=== PATIENT | female | born 1970 | race Caucasian/White ===

== ENCOUNTER 2016-06-06 12:43 | Emergency (ER) | payer BC ==
[2016-06-06 12:50] VITALS: BP 136/71
[2016-06-06] MEDS ORDERED: IPRATROPIUM/ALBUTEROL 0.5-2.5 MG/3 ML AMPUL NEB ONE ×2 (14:10)
--- NOTE | 2016-06-06 14:15 | ER Document Report ---
Doctor's Note Notes: 06/06/16 14:11 I have greeted and performed a rapid initial assessment of this patient. A comprehensive ED assessment and evaluation of the patient, analysis of test results and completion of the medical decision making process will be conducted by additional ED providers. 45-year-old female history of multiple PEs presents with complaints of shortness of breath here I like symptoms over the past 2 days. Patient notes she is on 0 to has been taking medication as prescribed. Admits to fevers and chills. Admits to nonproductive cough 06/06/16 14:15 Lungs: Faint inspiratory respiratory wheezing noted all throughout coughing no significant respiratory distress
[2016-06-06 14:40] LABS: ABSOLUTE BASOPHILS # (AUTO) 0.1 10^3/uL (0.0-0.2); ABSOLUTE EOSINOPHILS # (AUTO) 0.1 10^3/uL (0.0-0.6); ABSOLUTE LYMPHOCYTES (AUTO) 1.6 10^3/uL (0.5-4.7); ABSOLUTE MONOCYTES (AUTO) 0.7 10^3/uL (0.1-1.4); ABSOLUTE NEUT (AUTO) 4.8 10^3/uL (1.7-8.2); BASOPHILS % (AUTO) 1.3 % (0-2); EOSINOPHILS % (AUTO) 0.7 % (0-6); HEMATOCRIT 40.8 % (36.0-47.0); HEMOGLOBIN 13.6 g/dL (12.0-15.5); LYMPHOCYTES % (AUTO) 22.5 % (13-45); MEAN CORPUSCULAR HEMOGLOBIN 26.4 pg (27.0-33.4); MEAN CORPUSCULAR HGB CONC 33.3 g/dL (32.0-36.0); MEAN CORPUSCULAR VOLUME 79 fl (80-97); MONOCYTES % (AUTO) 9.6 % (3-13); RED BLOOD COUNT 5.15 10^6/uL (3.72-5.28); RED CELL DISTRIBUTION WIDTH 15.7 % (11.5-14.0); SEGMENTED NEUTROPHILS % (AUTO) 65.9 % (42-78); WHITE BLOOD COUNT 7.3 10^3/uL (4.0-10.5)
[2016-06-06 15:01] LABS: ALANINE AMINOTRANSFERASE 34 U/L (9-52); ALBUMIN 4.2 g/dL (3.5-5.0); ALKALINE PHOSPHATASE 77 U/L (38-126); ANION GAP 14 (5-19); ASPARTATE AMINO TRANSFERASE 30 U/L (14-36); BILIRUBIN,DIRECT 0.4 mg/dL (0.0-0.4); BILIRUBIN,TOTAL 0.5 mg/dL (0.2-1.3); BLOOD UREA NITROGEN 18 mg/dL (7-20); CALCIUM 9.5 mg/dL (8.4-10.2); CARBON DIOXIDE 24 mmol/L (22-30); CHLORIDE 103 mmol/L (98-107); CREATININE RESULT 0.85 mg/dL (0.52-1.25); GLUCOSE 107 mg/dL (75-110); POTASSIUM 4.2 mmol/L (3.6-5.0); SODIUM 141.4 mmol/L (137-145); TOTAL PROTEIN 7.9 g/dL (6.3-8.2)
--- NOTE | 2016-06-06 17:29 | ER Document Report ---
ED General - General Chief Complaint: Flu Symptoms Stated Complaint: PAIN ALL OVER Mode of Arrival: Ambulatory Information source: Patient Notes: This is a 45-year-old female who presents to the ER with a 2 day history of Lasix. She states she has had subjective fever and chills, along with a dry cough and body aches. Of note she has a history of PE in the past and she takes Xarelto. She states that she works at a [employer] and many people there have been sick with similar symptoms. She did not get a flu shot this year. She denies chest pain. TRAVEL OUTSIDE OF THE [place] IN LAST 30 DAYS: No - Related Data Allergies/Adverse Reactions: codeine [Codeine] Allergy (Verified 06/06/16 12:47) rash, headache Penicillins Allergy (Verified 06/06/16 12:47) itching rash hydromorphone HCl [From Dilaudid] Adverse Reaction (Verified 06/06/16 12:47) morphine [Morphine] Adverse Reaction (Verified 06/06/16 12:47) Past Medical History - General Information source: Patient - Social History Smoking Status: Former Smoker Frequency of alcohol use: None Drug Abuse: None Family History: Arthritis, CAD, DM, Hyperlipidemia, Hypertension, Malignancy, Other - Mother had a blood clot. denies: CVA Patient has suicidal ideation: No Patient has homicidal ideation: No - Past Medical History Cardiac Medical History: Reports: Hx DVT - Left, Hx Pulmonary Embolism Denies: Hx Hypertension Pulmonary Medical History: Reports: Hx Asthma Endocrine Medical History: Denies: Hx Diabetes Mellitus Type 1, Hx Diabetes Mellitus Type 2 Renal/ Medical History: Denies: Hx Peritoneal Dialysis Musculoskeltal Medical History: Reports Hx Arthritis - knees and back, Reports Hx Musculoskeletal Deformity, Reports Hx Musculoskeletal Trauma Psychiatric Medical History: Reports: Hx Depression Past Surgical History: Reports: Hx Section - x 2, Hx Cholecystectomy, Hx Gynecologic Surgery - Endometrial ablation, Hx Hysterectomy, Hx Orthopedic Surgery - ACL replacement, bilateral carpal tunnel,, Hx Tubal Ligation - Immunizations Hx Diphtheria, Pertussis, Tetanus Vaccination: Yes Hx Pneumococcal Vaccination: 09/27/13 Review of Systems - Review of Systems Notes: REVIEW OF SYSTEMS: CONSTITUTIONAL : As per history of present illness EENT: Denies eye, ear, throat, or mouth pain or symptoms. CARDIOVASCULAR: Denies chest pain. RESPIRATORY: As per history of present illness GASTROINTESTINAL: Denies abdominal pain. Denies nausea, vomiting. She has had diarrhea GENITOURINARY: Denies difficulty urinating, painful urination, burning, frequency, or blood in urine. MUSCULOSKELETAL: Denies neck or back pain or joint pain or swelling. SKIN: Denies rash or skin lesions. HEMATOLOGIC : Denies easy bruising or bleeding. LYMPHATIC: Denies swollen, enlarged glands. NEUROLOGICAL: Denies altered mental status or loss of consciousness. PSYCHIATRIC: Denies anxiety or stress or depression. ALL OTHER SYSTEMS REVIEWED AND NEGATIVE. Physical Exam - Vital signs Vitals: Temp Pulse Resp BP Pulse Ox 98.8 F 97 20 136/71 H 94 06/06/16 12:50 06/06/16 12:50 06/06/16 12:50 06/06/16 12:50 06/06/16 12:50 - Notes Notes: PHYSICAL EXAMINATION: GENERAL: Well-appearing, well-nourished and in no acute distress. Pleasant and conversant with no conversational dyspnea HEAD: Atraumatic, normocephalic. EYES: Pupils equal round and reactive to light, extraocular movements intact, sclera anicteric, conjunctiva are normal. ENT: nares patent, oropharynx clear without exudates. Moist mucous membranes. NECK: Normal range of motion, supple without lymphadenopathy LUNGS: Breath sounds clear to auscultation bilaterally and equal. No wheezes rales or rhonchi. HEART: Regular rate and rhythm without murmurs ABDOMEN: Soft, nontender, normoactive bowel sounds. No guarding, no rebound. No masses appreciated. EXTREMITIES: Normal range of motion, no pitting or edema. NEUROLOGICAL: Cranial nerves grossly intact. Normal speech. No gross focal motor or sensory deficits appreciated. PSYCH: Normal mood, normal affect. SKIN: Warm, Dry, normal turgor, no rashes or lesions noted. Course - Re-evaluation Re-evalutation: 06/06/16 17:25 Patient states she is feeling better after the nebulizer treatment. We'll treat for bronchitis. Her CT angiogram of the chest is reviewed and she has no evidence of PE or infiltrate. She will follow up with her primary care physician. Strict return precautions were discussed. - Vital Signs Vital signs: Temp Pulse Resp BP Pulse Ox 98.8 F 97 20 136/71 H 94 06/06/16 12:50 06/06/16 12:50 06/06/16 12:50 06/06/16 12:50 06/06/16 12:50 - Laboratory Result Diagrams: 06/06/16 14:29 06/06/16 14:29 Laboratory results interpreted by me: 06/06/16 14:29 MCV 79 L MCH 26.4 L RDW 15.7 H - Diagnostic Test Radiology reviewed: Reports reviewed - CT angiogram with no evidence of PE or infiltrate Discharge - Discharge Clinical Impression: Bronchitis, Flu-like symptoms Additional Instructions: BRONCHITIS: You have acute bronchitis. This disease is an infection or inflammation of the air passageways in your lungs. Symptoms usually include cough, low grade fever, shortness of breath, and wheezing. The cough usually persists for a couple of weeks. Most cases of bronchitis get better without antibiotics. We prescribe antibiotics when we believe bacteria are damaging your airways, or if there's high risk the bronchitis will worsen into pneumonia. Increase your fluid intake. A cool mist humidifier may make your lungs more comfortable. An expectorant (cough medicine that loosens phlegm) can help. If you smoke, STOP!!! Recovery from bronchitis can be somewhat slow, but you should see improvement within a day or two. Repeated episodes of bronchitis may result in lung damage -- for example, chronic bronchitis, recurrent pneumonias, or emphysema. Call the doctor if you develop increasing fever, shortness of breath, chest pain, bloody sputum, or otherwise worsen. If you have not improved at all after several days, contact the physician. BRONCHITIS WITH BRONCHOSPASM (WHEEZING): You have bronchitis with bronchospasm (wheezing). Sometimes people develop wheezing with a chest cold. This occurs either because of an underlying tendency toward asthma or because the virus itself irritates the bronchial tubes. This irritation causes cough, shortness of breath, and wheezing. Emergency treatment of bronchospasm may include adrenaline shots or bronchodilator aerosol. You may feel lightheaded and have a rapid pulse for an hour or two. Rest and get plenty of fluids. At home, we'll treat you with a bronchodilator inhaler. Corticosteroids may be required for some patients. Until you recover, avoid chemical fumes, dusts, pollens, and exercising in very cold or dry air. If you smoke, stop now! Most cases of bronchitis get better without antibiotics. We prescribe antibiotics when we believe bacteria are damaging your airways, or if there's high risk the bronchitis will worsen into pneumonia. Increase your fluid intake. A cool mist humidifier may make your lungs more comfortable. An expectorant (cough medicine that loosens phlegm) can help. Repeated episodes of bronchitis and bronchospasm may result in lung damage -- for example, chronic bronchitis, recurrent pneumonias, or emphysema. If you develop a fever, increased wheezing, chest pain, or severe shortness of breath, you should contact the doctor immediately. INHALED BRONCHODILATORS: You have received a treatment of and/or prescription for an inhaled bronchodilator -- a medication which stimulates the airways in the lung to dilate. This improves the flow of air in asthma, bronchitis, and emphysema. These medicines have some similarity to adrenaline, and can cause similar side effects: shakiness, racing heart, and a sense of nervousness. These side effects decrease with time. Contact your doctor if these side effects are severe. Do not over-use the medicine. Too-frequent use of the inhaler may make it ineffective. Call your doctor if the inhaler is not controlling your symptoms at the prescribed doses. STEROID MEDICATION: You have been given an injection of or oral medicine of the cortisone/ steroid class. This medication is used to control inflammation or allergy. Berry t is usually only given for a short period of time, until the acute process subsides. There are usually no side effects from short-term use of cortisone-like medications. Some persons feel an increased sense of well-being and are not sleepy at bedtime. Long-term use of cortisone medications is best avoided, unless required for a severe condition. If your condition does not remit, or relapses after the course of corticosteroid medication, you should consult your physician. ANTIBIOTIC THERAPY: You have been given an antibiotic prescription. It's important that you take all the medication, unless instructed otherwise by your physician. Failure to complete the entire course can result in relapse of your condition. Common side effects of antibiotics include nausea, intestinal cramping, or diarrhea. Women may develop vaginal yeast infections, and babies can get yeast (thrush) in the mouth following the use of antibiotics. Contact your physician if you develop significant side effects from this medication. Allergy to this antibiotic can result in hives, wheezing, faintness, or itching. If symptoms of allergy occur, stop the medication and call your doctor. D AZITHROMYCIN: Azithromycin (Zithromax) is a broad spectrum antibiotic in the same class as erythromycin. It can treat a variety of bacterial infections, but is most frequently used for respiratory infections. Azithromycin is extremely long-lasting. It accumulates in body tissues and continues to kill bacteria for many days. In order to improve absorption, Azithromycin should be taken at least one hour before or two hours after a meal. It does not have the same strong tendency to upset the stomach as erythromycin and is usually very well tolerated. Patients who have had a rash or other true allergic reactions to erythromycin should not take this medication. Call if you develop gastrointestinal distress, severe diarrhea, rash, hives, itching, or shortness of breath. USE OF ACETAMINOPHEN (Tylenol): Acetaminophen may be taken for pain relief or fever control. It's much safer than aspirin, offering a wider range of "safe" dosages. It is safe during . Some brand names are Tylenol, Panadol, Datril, Anacin 3, Tempra, and Liquiprin. Acetaminophen can be repeated every four hours. The following are maximum recommended dosages: >89 pounds or adults 650 mg to 900 mg Acetaminophen can be repeated every four hours. Maximum dose not to exceed 4000 mg a day. SMOKING: If you smoke, you should stop smoking. The tar and chemicals in cigarette smoke are harmful. Smoking has been shown to cause: emphysema chronic bronchitis lung cancer mouth and throat cancer stomach and pancreas cancer premature aging defects In addition, smoking increases ear and lung infections in children of smokers. FOLLOW-UP CARE: If you have been referred to a physician for follow-up care, call the physician s office for an appointment as you were instructed or within the next two days. If you experience worsening or a significant change in your symptoms, notify the physician immediately or return to the Emergency Department at any time for re-evaluation. Prescriptions: Albuterol Sulfate [Proair HFA Inhalation Aerosol 8.5 gm MDI] 2 puff IH Q4H PRN # 1 mdi PRN Reason: Azithromycin [Zithromax 250 mg Tablet] 250 mg PO ASDIR PRN #6 tablet PRN Reason: Prednisone [Deltasone 20 mg Tablet] 3 tab PO DAILY 4 Days Forms: Return to Work
== END 2016-06-06 18:00 | disposition home or self-care (01) ==
LOC: ER 12:43
DX: J40 Bronchitis, not specified as acute or chronic (principal); R68.83 Chills (without fever); R05 Cough; R52 Pain, unspecified; J45.909 Unspecified asthma, uncomplicated; Z86.711 Personal history of pulmonary embolism; Z79.01 Long term (current) use of anticoagulants; Z88.5 Allergy status to narcotic agent; Z88.0 Allergy status to penicillin; Z87.891 Personal history of nicotine dependence; Z86.718 Personal history of other venous thrombosis and embolism
CPT/HCPCS: 94640; 99284; 36415; 85025; 80053; 87804; 71275; J7620

== ENCOUNTER → 2016-09-03 | Outpatient (CLI) | payer OTHER ==
--- NOTE | 2016-09-03 11:31 | RADIOLOGY REPORT (SQ) ---
EXAM DESCRIPTION: MRI HEAD COMBO COMPLETED DATE/TIME: 09/03/2016 11:06 am REASON FOR STUDY: HEADACHE (R51) R51 HEADACHE COMPARISON: CT soft tissue neck 01/11/2009 TECHNIQUE: Multiplanar imaging includes noncontrasted T1, T2, FLAIR, diffusion with ADC map and post gadolinium contrast T1 sequences. Images stored on PACS. CONTRAST TYPE AND DOSE: 20 mL Multihance. RENAL FUNCTION: GFR > 60. LIMITATIONS: None. FINDINGS: ANATOMY: No anomalies. Normal vascular flow voids. Pituitary fossa normal. CSF SPACES: Normal in size and contour. No hemorrhage. CEREBRUM: Sulci and gyri normal in size and contour. Normal white matter signal on FLAIR imaging. No evidence of hemorrhage, mass, or extraaxial fluid collection. No abnormal enhancement post contrast. POSTERIOR FOSSA: No signal alteration. No hemorrhage. No edema, masses, or mass effect. Internal chuckie tory canals, cerebellopontine angles, mastoids normal. No enhancing lesions. No abnormal enhancement post contrast. DIFFUSION IMAGING: Negative for acute or subacute infarction. ORBITS: No masses. Globes normal. PARANASAL SINUSES: No fluid levels. Mucosa normal. OTHER: No other significant finding. IMPRESSION: NORMAL MRI OF THE BRAIN WITHOUT AND WITH INTRAVENOUS GADOLINIUM CONTRAST. TECHNICAL DOCUMENTATION: JOB ID: [id number] [employer]- All Rights Reserved
== END ==
LOC: RAD 09:28
PROVIDERS: ATTEND Specialist
DX: R51 Headache (principal)
CPT/HCPCS: 70553; A9577

== ENCOUNTER 2016-09-20 12:40 | Emergency (ER) | payer OTHER ==
[2016-09-20] MEDS ORDERED: OXYCODONE-ACETAMINOPHEN 5-325 MG TABLET PO ONE (13:07)
[2016-09-20] MEDS ORDERED: METOCLOPRAMIDE HCL 10 MG TABLET PO ONE (13:08)
--- NOTE | 2016-09-20 13:37 | RADIOLOGY REPORT (SQ) ---
EXAM DESCRIPTION: KNEE RIGHT 3 VIEWS COMPLETED DATE/TIME: 09/20/2016 1:25 pm REASON FOR STUDY: right knee pain, no fall COMPARISON: None. NUMBER OF VIEWS: Three views. TECHNIQUE: AP, lateral, and sunrise patella radiographic images acquired of the right knee. LIMITATIONS: None. FINDINGS: MINERALIZATION: Normal. BONES: No acute fracture or dislocation. No worrisome bone lesions. Mild joint space narrowing with o steophytes in all 3 compartments. JOINT: No effusion. No chondrocalcinosis. OTHER: No other significant finding. IMPRESSION: DEGENERATIVE OSTEOARTHRITIS. NO ACUTE FINDINGS. TECHNICAL DOCUMENTATION: JOB ID: [id number] [email or web address]- All Rights Reserved
--- NOTE | 2016-09-20 14:12 | ER Document Report ---
ED Extremity Problem, Lower - General Chief Complaint: Knee Pain Stated Complaint: RIGHT KNEE PAIN Time Seen by Provider: 09/20/16 12:50 TRAVEL OUTSIDE OF THE [place] IN LAST 30 DAYS: No - HPI Patient complains to provider of: Pain, Swelling. No: Injury Location: Knee - right Occurred: Last week Where: Work Onset/Duration: Gradual Quality of pain: Achy, Throbbing Context: Other - has been walking at work much more than she is used to and has underlying right knee OA Recent injury: No Associated symptoms: Painful ambulation. denies: Unable to bear weight Exacerbated by: Movement, Walking Relieved by: Elevation, Ice, Rest - Related Data Allergies/Adverse Reactions: codeine [Codeine] Allergy (Verified 09/20/16 12:45) rash, headache Penicillins Allergy (Verified 09/20/16 12:45) itching rash hydromorphone HCl [From Dilaudid] Adverse Reaction (Verified 09/20/16 12:45) morphine [Morphine] Adverse Reaction (Verified 09/20/16 12:45) Past Medical History - Social History Smoking Status: Never Smoker Chew tobacco use (# tins/day): No Frequency of alcohol use: None Family History: Arthritis, CAD, DM, Hyperlipidemia, Hypertension, Malignancy, Other - Past Medical History Cardiac Medical History: Reports: Hx DVT - Left, Hx Pulmonary Embolism Denies: Hx Hypertension Pulmonary Medical History: Reports: Hx Asthma Endocrine Medical History: Denies: Hx Diabetes Mellitus Type 1, Hx Diabetes Mellitus Type 2 Renal/ Medical History: Denies: Hx Peritoneal Dialysis Musculoskeltal Medical History: Reports Hx Arthritis - knees and back, Reports Hx Musculoskeletal Deformity, Reports Hx Musculoskeletal Trauma Psychiatric Medical History: Reports: Hx Depression Past Surgical History: Reports: Hx Section - x 2, Hx Cholecystectomy, Hx Gynecologic Surgery - Endometrial ablation, Hx Hysterectomy, Hx Orthopedic Surgery - ACL replacement, bilateral carpal tunnel,, Hx Tubal Ligation - Immunizations Hx Diphtheria, Pertussis, Tetanus Vaccination: Yes Hx Pneumococcal Vaccination: 09/27/13 Review of Systems - Review of Systems Constitutional: No symptoms reported Cardiovascular: No symptoms reported Respiratory: No symptoms reported Musculoskeletal: See HPI Neurological/Psychological: No symptoms reported -: Yes All other systems reviewed and negative Physical Exam - Vital signs Vitals: Temp Pulse Resp BP Pulse Ox 97.8 F 86 20 130/69 H 96 09/20/16 12:43 09/20/16 12:43 09/20/16 12:43 09/20/16 12:43 09/20/16 12:43 - General General appearance: Appears well, Alert In distress: None - Cardiovascular Pulses: Normal: Femoral, Dorsalis pedis Normal capillary refill: Yes - Extremities General upper extremity: Normal inspection, Nontender, Normal color, Normal ROM , Normal strength, Normal temperature General lower extremity: Normal inspection, Nontender, Normal color, Normal ROM , Normal strength, Normal temperature, Normal weight bearing. No: Mauricio's sign Knee: Pain with ROM. No: Tender, Deformity, Dislocation, Drawer's test instability, Joint effusion, Laxity with valgus stress, Laxity with varus stress , Unable to bear weight - Neurological Neuro grossly intact: Yes Cognition: Normal Orientation: AAOx4 [place] Coma Scale Eye Opening: Spontaneous [place] Coma Scale Verbal: Oriented [place] Coma Scale Motor: Obeys Commands Domingo Coma Scale Total: 15 Motor strength normal: LUE, RUE, LLE, RLE Sensory: Normal - Skin Skin Temperature: Warm Skin Moisture: Dry Skin Color: Normal Skin Turgor: Elastic Course - Re-evaluation Re-evalutation: 09/20/16 20:48 Patient is a 46-year-old female who presents with acute on chronic knee pain. Osteoarthritis noted on x-ray. Advised patient is able to bear weight and ambulate. Patient declined crutches. Patient offered steroid and Mobic for anti-inflammatory benefits. Patient educated on weightbearing as tolerated and follow-up with primary care. Patient is agreeable with plan. - Vital Signs Vital signs: Temp Pulse Resp BP Pulse Ox 98 F 80 16 132/72 H 98 09/20/16 14:15 09/20/16 14:15 09/20/16 14:15 09/20/16 14:15 09/20/16 14:15 - Diagnostic Test Radiology reviewed: Image reviewed, Reports reviewed Discharge - Discharge Clinical Impression: Osteoarthritis Qualifiers: Osteoarthritis location: knee Osteoarthritis type: primary Laterality: right Qualified Code(s): M17.11 - Unilateral primary osteoarthritis, right knee Condition: Good Disposition: HOME, SELF-CARE Instructions: Ice & Elevation ([facility]), Arthritis ([facility]) Prescriptions: Meloxicam [Mobic 7.5 Mg Tablet] 7.5 mg PO BID #14 tablet Methylprednisolone [Medrol Dosepack (4 mg/Tab) 21 Tab/Dosepak] 4 mg PO ASDIR PRN #21 tab.ds.pk PRN Reason: Referrals: [facility] [Primary Care Provider] - Follow up as needed ZAIRE PABLO MD [ACTIVE STAFF] - Follow up as needed
[2016-09-20 14:24] VITALS: BP 132/72
== END 2016-09-20 14:15 | disposition home or self-care (01) ==
LOC: ER 12:40
DX: M17.11 Unilateral primary osteoarthritis, right knee (principal); M25.561 Pain in right knee; M79.89 Other specified soft tissue disorders
CPT/HCPCS: 99283

== ENCOUNTER 2017-01-18 07:44 | Emergency (ER) | payer OTHER ==
[2017-01-18] MEDS ORDERED: KETOROLAC TROMETHAMINE 60 MG/2 ML SDV IM ONE (09:23)
[2017-01-18] MEDS ORDERED: DIAZEPAM INJ 10 MG/2 ML DISP.SYRIN IM ONE (09:23)
--- NOTE | 2017-01-18 09:28 | ER Document Report ---
ED General - General Chief Complaint: Shoulder Pain Stated Complaint: BACK PAIN Time Seen by Provider: 01/18/17 08:31 Mode of Arrival: Ambulatory Information source: Patient Notes: 46-year-old female presents with complaints of left scapular pain stiffness. Patient notes symptoms initially started yesterday was having some pain in the muscle and then today when she awoke it was hurting worse and she was unable to move her neck pain. Patient denies any shortness of breath, patient has had pulmonary emboli in the past and is on Xarelto for the rest of her life, she denies this feeling like the pulmonary emboli and is completely reproducible TRAVEL OUTSIDE OF THE [place] IN LAST 30 DAYS: No - HPI Onset: Yesterday Onset/Duration: Persistent, Worse Quality of pain: Achy Severity: Moderate Pain Level: 2 Associated symptoms: Body/muscle aches Exacerbated by: Movement Relieved by: Denies Similar symptoms previously: No Recently seen / treated by doctor: No - Related Data Allergies/Adverse Reactions: codeine [Codeine] Allergy (Verified 01/18/17 08:36) rash, headache Penicillins Allergy (Verified 01/18/17 08:36) itching rash hydromorphone HCl [From Dilaudid] Adverse Reaction (Verified 01/18/17 08:36) morphine [Morphine] Adverse Reaction (Verified 01/18/17 08:36) Past Medical History - Social History Smoking Status: Never Smoker Cigarette use (# per day): No Chew tobacco use (# tins/day): No Smoking Education Provided: No Frequency of alcohol use: None Drug Abuse: None Family History: Arthritis, CAD, DM, Hyperlipidemia, Hypertension, Malignancy, Other Patient has suicidal ideation: No Patient has homicidal ideation: No - Past Medical History Cardiac Medical History: Reports: Hx DVT - Left, Hx Pulmonary Embolism Denies: Hx Hypertension Pulmonary Medical History: Reports: Hx Asthma Endocrine Medical History: Denies: Hx Diabetes Mellitus Type 1, Hx Diabetes Mellitus Type 2 Renal/ Medical History: Denies: Hx Peritoneal Dialysis Musculoskeltal Medical History: Reports Hx Arthritis - knees and back, Reports Hx Musculoskeletal Deformity, Reports Hx Musculoskeletal Trauma Psychiatric Medical History: Reports: Hx Depression Past Surgical History: Reports: Hx Section - x 2, Hx Cholecystectomy, Hx Gynecologic Surgery - Endometrial ablation, Hx Hysterectomy, Hx Orthopedic Surgery - ACL replacement, bilateral carpal tunnel,, Hx Tubal Ligation - Immunizations Hx Diphtheria, Pertussis, Tetanus Vaccination: Yes Hx Pneumococcal Vaccination: 09/27/13 Review of Systems - Review of Systems Notes: REVIEW OF SYSTEMS: CONSTITUTIONAL : Denies fever, chills, or sweats. Denies recent illness. EENT: Admits to neck stiffness CARDIOVASCULAR: Denies chest pain. Denies palpitations or racing or irregular heart beat. Denies ankle edema. RESPIRATORY: Denies cough, cold, or chest congestion. Denies shortness of breath, difficulty breathing, or wheezing. GASTROINTESTINAL: Denies abdominal pain or distention. Denies nausea, vomiting , or diarrhea. Denies blood in vomitus, stools, or per rectum. Denies black, tarry stools. Denies constipation. GENITOURINARY: Denies difficulty urinating, painful urination, burning, frequency, blood in urine, or discharge. FEMALE GENITOURINARY: Denies vaginal bleeding, heavy or abnormal periods, irregular periods. Denies vaginal discharge or odor. MUSCULOSKELETAL: Admits of left scapular pain SKIN: Denies rash, lesions or sores. HEMATOLOGIC : Denies easy bruising or bleeding. LYMPHATIC: Denies swollen, enlarged glands. NEUROLOGICAL: Denies confusion or altered mental status. Denies passing out or loss of consciousness. Denies dizziness or lightheadedness. Denies headache. Denies weakness or paralysis or loss of use of either side. Denies problems with gait or speech. Denies sensory loss, numbness, or tingling. Denies seizures. PSYCHIATRIC: Denies anxiety or stress. Denies depression, suicidal ideation, or homicidal ideation. ALL OTHER SYSTEMS REVIEWED AND NEGATIVE. PHYSICAL EXAMINATION: GENERAL: Well-appearing, well-nourished and in no acute distress. HEAD: Atraumatic, normocephalic. EYES: Pupils equal round and reactive to light, extraocular movements intact, conjunctiva are normal. ENT: Nares patent, oropharynx clear without exudates. Moist mucous membranes. NECK: Normal range of motion, supple without lymphadenopathy LUNGS: Breath sounds clear to auscultation bilaterally and equal. No wheezes rales or rhonchi. HEART: Regular rate and rhythm without murmurs ABDOMEN: Soft, nontender, nondistended abdomen. No guarding, no rebound. No masses appreciated. Female : deferred Musculoskeletal: Pinpoint tenderness of the left inferior scapula NEUROLOGICAL: Cranial nerves grossly intact. Normal speech, normal gait. Normal sensory, motor exams PSYCH: Normal mood, normal affect. SKIN: Warm, Dry, normal turgor, no rashes or lesions noted. Dictation was performed using [employer] voice recognition software Physical Exam - Vital signs Vitals: Temp Pulse Resp BP Pulse Ox 98.2 F 92 20 146/86 H 96 01/18/17 07:49 01/18/17 07:49 01/18/17 07:49 01/18/17 07:49 01/18/17 07:49 Course - Re-evaluation Re-evalutation: 01/18/17 09:26 Patient will be given Valium and Toradol and is otherwise well-appearing no distress she will be discharged home with the same. After performing a Medical Screening Examination, I estimate there is LOW risk for CENTRAL CORD SYNDROME, EPIDURAL MASS LESION, SEVERE SPINAL STENOSIS, ARTERIAL DISSECTION, MENINGITIS, or ACUTE CORONARY SYNDROME, thus I consider the discharge disposition reasonable. I have reevaluated this patient multiple times and no significant life threatening changes are noted. The patient and I have discussed the diagnosis and risks, and we agree with discharging home to follow-up on an outpatient basis with the understanding that symptoms and presentations can change. We also discussed returning to the Emergency Department immediately if new or worsening symptoms occur. We have discussed the symptoms which are most concerning (e.g., saddle anesthesia, urinary or bowel incontinence or retention, changing or worsening pain) that necessitate immediate return. - Vital Signs Vital signs: Temp Pulse Resp BP Pulse Ox 98.2 F 92 20 146/86 H 96 01/18/17 07:49 01/18/17 07:49 01/18/17 07:49 01/18/17 07:49 01/18/17 07:49 Discharge - Discharge Clinical Impression: Neck stiffness Muscle strain of left scapular region Qualifiers: Encounter type: initial encounter Qualified Code(s): S46.912A - Strain of unspecified muscle, fascia and tendon at shoulder and upper arm level, left arm , initial encounter Condition: Stable Disposition: HOME, SELF-CARE Additional Instructions: Follow up with your physician tomorrow for further care or return to the ED IMMEDIATELY if symptoms worsen or new concerns occur. If you cannot afford to follow up with your primary care physician a list of low cost clinics have been provided at the end of your discharge papers as well. Prescriptions: Diazepam [Valium 5 mg Tablet] 5 mg PO QIDP PRN #15 tablet PRN Reason: Forms: Return to School
[2017-01-18 09:39] VITALS: BP 135/90
== END 2017-01-18 10:01 | disposition home or self-care (01) ==
LOC: ER 07:44
DX: S46.912A Strain of unspecified muscle, fascia and tendon at shoulder and upper arm level, left arm, initial encounter (principal); M43.6 Torticollis; X58.XXXA Exposure to other specified factors, initial encounter; Z79.02 Long term (current) use of antithrombotics/antiplatelets; Z88.6 Allergy status to analgesic agent; Z88.0 Allergy status to penicillin; Z86.718 Personal history of other venous thrombosis and embolism; Z86.711 Personal history of pulmonary embolism; Z90.49 Acquired absence of other specified parts of digestive tract; Z90.710 Acquired absence of both cervix and uterus
CPT/HCPCS: 99283; 96372; J3360; J1885

== ENCOUNTER → 2017-02-02 | Outpatient (CLI) | payer OTHER ==
[2017-02-02 18:55] LABS: ALANINE AMINOTRANSFERASE 30 U/L (9-52); ALBUMIN 3.9 g/dL (3.5-5.0); ALKALINE PHOSPHATASE 86 U/L (38-126); ANION GAP 14 (5-19); ASPARTATE AMINO TRANSFERASE 20 U/L (14-36); BILIRUBIN,DIRECT 0.3 mg/dL (0.0-0.4); BILIRUBIN,TOTAL 0.3 mg/dL (0.2-1.3); BLOOD UREA NITROGEN 13 mg/dL (7-20); CALCIUM 9.4 mg/dL (8.4-10.2); CARBON DIOXIDE 27 mmol/L (22-30); CHLORIDE 101 mmol/L (98-107); GLUCOSE 98 mg/dL (75-110); SODIUM 142.1 mmol/L (137-145); TOTAL PROTEIN 6.6 g/dL (6.3-8.2)
== END ==
LOC: OD 16:34
PROVIDERS: ATTEND Internal Medicine
DX: I26.99 Other pulmonary embolism without acute cor pulmonale (principal)
CPT/HCPCS: 36415; 80053

== ENCOUNTER 2017-03-13 11:22 | Emergency (ER) | payer OTHER ==
[2017-03-13 11:30] VITALS: BP 148/85
[2017-03-13] MEDS ORDERED: PREDNISONE 20 MG TABLET PO ONE (11:46)
[2017-03-13] MEDS ORDERED: RACEPINEPHRINE HCL 2.25% NEB 0.5 ML AMPUL NEB ONE (11:46)
[2017-03-13] MEDS ORDERED: BENZONATATE 100 MG CAPSULE PO ONE (11:47)
--- NOTE | 2017-03-13 11:52 | ER Document Report ---
ED Flu Like - General Chief Complaint: Sore Throat Stated Complaint: COUGH Time Seen by Provider: 03/13/17 11:37 Mode of Arrival: Ambulatory Information source: Patient, [facility] Records Notes: This 46-year-old female patient comes emergency room complaining of 3 day history of flulike symptoms with hoarse voice, throat pain, pain swelling lymph nodes. Nonproductive cough. Fever chills and sweats. She did not get a flu shot this year. 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 TRAVEL OUTSIDE OF THE [place] IN LAST 30 DAYS: No - Related Data Allergies/Adverse Reactions: codeine [Codeine] Allergy (Verified 03/13/17 11:24) rash, headache Penicillins Allergy (Verified 03/13/17 11:24) itching rash hydromorphone HCl [From Dilaudid] Adverse Reaction (Verified 03/13/17 11:24) morphine [Morphine] Adverse Reaction (Verified 03/13/17 11:24) Past Medical History - General Information source: Patient, [facility] Records - Social History Smoking Status: Former Smoker Cigarette use (# per day): No - Quit when she developed DVT/PE Chew tobacco use (# tins/day): No Smoking Education Provided: No Frequency of alcohol use: Rare Drug Abuse: None 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 Lives with: Friend Family History: Arthritis, CAD, DM, Hyperlipidemia, Hypertension, Malignancy, Other Patient has suicidal ideation: No Patient has homicidal ideation: No - Past Medical History Cardiac Medical History: Reports: Hx DVT - LLE, Hx Pulmonary Embolism Pulmonary Medical History: Reports: Hx Asthma EENT Medical History: Reports: None Neurological Medical History: Reports: None Endocrine Medical History: Reports: None Renal/ Medical History: Reports: None GI Medical History: Reports: None Musculoskeltal Medical History: Reports Hx Arthritis - knees and back, Reports Hx Musculoskeletal Deformity, Reports Hx Musculoskeletal Trauma Skin Medical History: Reports None Psychiatric Medical History: Reports: Hx Depression Past Surgical History: Reports: Hx Section - x 2, Hx Cholecystectomy, Hx Gynecologic Surgery - Endometrial ablation, Hx Hysterectomy, Hx Orthopedic Surgery - Left ACL cadaver graft, bilateral carpal tunnel,, Hx Tubal Ligation - Immunizations Hx Diphtheria, Pertussis, Tetanus Vaccination: Yes Hx Pneumococcal Vaccination: 09/27/13 Review of Systems - Review of Systems Constitutional: Chills, Fever EENT: Nose congestion, Nose discharge, Throat pain Cardiovascular: No symptoms reported Respiratory: Cough, Wheezing, Other - Laryngitis. denies: Sputum Gastrointestinal: No symptoms reported Genitourinary: No symptoms reported Female Genitourinary: Last menstrual period - Post hysterectomy Musculoskeletal: No symptoms reported Skin: No symptoms reported Hematologic/Lymphatic: No symptoms reported Neurological/Psychological: No symptoms reported Physical Exam - Vital signs Vitals: Temp Pulse Resp BP Pulse Ox 98.7 F 102 H 16 148/85 H 102 H 03/13/17 11:29 03/13/17 11:29 03/13/17 11:29 03/13/17 11:29 03/13/17 11:29 Interpretation: Normal - General General appearance: Appears well, Alert In distress: None - HEENT Head: Normocephalic, Atraumatic Eyes: Normal Pupils: PERRL Tympanic membrane: Normal Nasal: Other - Some nasal congestion Pharynx: Erythema - Looks viral. No: Exudate, Uvular edema Neck: Anterior cervical chain - Respiratory Respiratory status: No respiratory distress Breath sounds: Nonproductive cough, Wheezing - Faint wheezes with forced cough. , Other - Laryngitis/hoarseness of voice when speaking - Cardiovascular Rhythm: Regular Heart sounds: Normal auscultation Murmur: No - Abdominal Inspection: Obese Tenderness: Nontender - Back Back: Normal - Extremities General upper extremity: Normal inspection General lower extremity: Normal inspection - Neurological Neuro grossly intact: Yes - Psychological Associated symptoms: Normal affect, Normal mood - Skin Skin Temperature: Warm Skin Moisture: Dry Skin Color: Normal Course - Re-evaluation Re-evalutation: 03/13/17 13:23 Influenza test was negative - Vital Signs Vital signs: Temp Pulse Resp BP Pulse Ox 98.7 F 102 H 16 148/85 H 102 H 03/13/17 11:29 03/13/17 11:29 03/13/17 11:35 03/13/17 11:29 03/13/17 11:29 Discharge - Discharge Clinical Impression: Viral URI with cough, Laryngitis Condition: Stable Disposition: HOME, SELF-CARE Additional Instructions: Upper Respiratory Illness: You have a viral infection of the respiratory passages -- a "cold." This common infection causes nasal congestion, drainage, and often sore throat and cough. It is caused by a virus and is highly contagious. The disease usually lasts a week or more, though the worst symptoms are usually over in 3 or 4 days. There is no "cure" for the viral infection -- it must run its course. If there is a complication, such as bacterial infection in the nose, sinuses, middle ear, or bronchial tubes, antibiotics may be required, but antibiotics won 't affect the virus. If you smoke, you should STOP!! Drink plenty of fluids. A humidifier may help. An expectorant medication or decongestant may make you more comfortable. Use acetaminophen or ibuprofen for fever or aches. See the doctor if fever persists over two or three days, if there is any significant worsening of your symptoms, or if you simply fail to improve as expected. Laryngitis: You have laryngitis. This is an inflammation of the vocal cords which leads to inability to speak normally. Any irritation to the airway can cause laryngitis. Causes include virus infection, smoke inhalation, allergy, or even trauma due to excessive talking or shouting. Rest your voice. Any vibration of the vocal cords increases and prolongs the swelling. Humidity is helpful, especially cool mist. Avoid dust, chemical fumes, and smoke. Avoid decongestants and antihistamines -- these will make you worse. You can expect to recover completely in a few days. See the physician if new symptoms develop, such as high fever, productive cough, shortness of breath, or if you do not improve within a few days. //////////////////////////////////////////////////////////////////////////////// //////////////////////////////////////////////////////////////////////////////// ////////////////// Start the prednisone as prescribed tomorrow. Use the inhaler is dispensed 2 puffs every 4 hours as needed for wheezing. Drink plenty of fluids throughout the day in the evening. Take the Crosby as prescribed to help suppress your cough. You may also use Robitussin-DM. Rest your voice is much as possible. Not talking and not coughing is the best way to help your laryngitis cleared up sooner. Follow-up with a local medical doctor if not improving. RETURN TO THE EMERGENCY ROOM IF ANY NEW OR WORSENING SYMPTOMS. Prescriptions: Hydrocodone/Acetaminophen [Crosby 5-325 mg Tablet] 1 tab PO ASDIR PRN #15 tablet PRN Reason: Prednisone [Deltasone 10 mg Tablet] 10 mg PO ASDIR PRN #21 tablet PRN Reason: Forms: Return to Work
[2017-03-13] MEDS ORDERED: HYDROCODONE/ACETAMINOPHEN 5-325 MG TABLET PO ONE (11:55)
[2017-03-13 12:38] LABS: A TYPE INFLUENZA AG NEGATIVE (NEGATIVE); B INFLUENZA AG NEGATIVE (NEGATIVE)
[2017-03-13] MEDS ORDERED: ALBUTEROL SULFATE HFA (90 MCG/PUFF) 8 GM MDI (1 MDI/ER DISP) IH ONE (13:27)
== END 2017-03-13 13:35 | disposition home or self-care (01) ==
LOC: ER 11:22
DX: J06.9 Acute upper respiratory infection, unspecified (principal); J04.0 Acute laryngitis; J02.9 Acute pharyngitis, unspecified; R05 Cough; R50.9 Fever, unspecified; Z87.891 Personal history of nicotine dependence
CPT/HCPCS: 94640; 99283; 87804; J7512; J3490 ×2

== ENCOUNTER 2017-04-13 19:41 | Emergency (ER) | payer OTHER ==
[2017-04-13] MEDS ORDERED: ONDANSETRON HCL INJ/PF 4 MG/2 ML SDV IV ONE (20:13)
[2017-04-13] MEDS ORDERED: NORMAL SALINE 1000 ML 1,000 ML IV ONE (20:13)
--- NOTE | 2017-04-13 20:14 | ER Document Report ---
ED Medical Screen (RME) - General Chief Complaint: Nausea/Vomiting/Diarrhea Stated Complaint: FLU LIKE SYMPTOMS Time Seen by Provider: 04/13/17 20:12 Mode of Arrival: Ambulatory Information source: Patient TRAVEL OUTSIDE OF THE [place] IN LAST 30 DAYS: No - HPI Patient complains to provider of: flu symptoms Onset: Other - pt with 2 day h/o N/V/D with generalized arthralgias and arthralgias - Related Data Allergies/Adverse Reactions: codeine [Codeine] Allergy (Verified 03/13/17 11:24) rash, headache Penicillins Allergy (Verified 03/13/17 11:24) itching rash hydromorphone HCl [From Dilaudid] Adverse Reaction (Verified 03/13/17 11:24) morphine [Morphine] Adverse Reaction (Verified 03/13/17 11:24) Past Medical History - Social History Chew tobacco use (# tins/day): No Frequency of alcohol use: None Drug Abuse: None - Past Medical History Cardiac Medical History: Reports: Hx DVT - LLE, Hx Pulmonary Embolism Pulmonary Medical History: Reports: Hx Asthma Renal/ Medical History: Denies: Hx Peritoneal Dialysis Musculoskeltal Medical History: Reports Hx Arthritis - knees and back, Reports Hx Musculoskeletal Deformity, Reports Hx Musculoskeletal Trauma Psychiatric Medical History: Reports: Hx Depression Past Surgical History: Reports: Hx Section - x 2, Hx Cholecystectomy, Hx Gynecologic Surgery - Endometrial ablation, Hx Hysterectomy, Hx Orthopedic Surgery - Left ACL cadaver graft, bilateral carpal tunnel,, Hx Tubal Ligation - Immunizations Hx Diphtheria, Pertussis, Tetanus Vaccination: Yes Physical Exam - Vital signs Vitals: Temp Pulse Resp BP Pulse Ox 99.1 F 102 H 20 167/84 H 98 04/13/17 19:54 04/13/17 19:54 04/13/17 19:54 04/13/17 19:54 04/13/17 19:54 Course - Vital Signs Vital signs: Temp Pulse Resp BP Pulse Ox 99.1 F 102 H 20 167/84 H 98 04/13/17 19:54 04/13/17 19:54 04/13/17 19:54 04/13/17 19:54 04/13/17 19:54
[2017-04-13 20:58] LABS: ABSOLUTE BASOPHILS # (AUTO) 0.1 10^3/uL (0.0-0.2); ABSOLUTE EOSINOPHILS # (AUTO) 0.1 10^3/uL (0.0-0.6); ABSOLUTE LYMPHOCYTES (AUTO) 1.6 10^3/uL (0.5-4.7); ABSOLUTE MONOCYTES (AUTO) 0.5 10^3/uL (0.1-1.4); ABSOLUTE NEUT (AUTO) 9.2 10^3/uL (1.7-8.2); BASOPHILS % (AUTO) 0.9 % (0-2); EOSINOPHILS % (AUTO) 0.5 % (0-6); HEMATOCRIT 40.8 % (36.0-47.0); HEMOGLOBIN 13.7 g/dL (12.0-15.5); LYMPHOCYTES % (AUTO) 13.7 % (13-45); MEAN CORPUSCULAR HEMOGLOBIN 26.8 pg (27.0-33.4); MEAN CORPUSCULAR HGB CONC 33.7 g/dL (32.0-36.0); MEAN CORPUSCULAR VOLUME 80 fl (80-97); MONOCYTES % (AUTO) 4.8 % (3-13); PLATELET COUNT 454 10^3/uL (150-450); RED BLOOD COUNT 5.12 10^6/uL (3.72-5.28); RED CELL DISTRIBUTION WIDTH 15.9 % (11.5-14.0); SEGMENTED NEUTROPHILS % (AUTO) 80.1 % (42-78); TOTAL CELLS COUNTED % (AUTO) 100 %; WHITE BLOOD COUNT 11.4 10^3/uL (4.0-10.5)
[2017-04-13 21:11] LABS: ALANINE AMINOTRANSFERASE 31 U/L (9-52); ALBUMIN 4.3 g/dL (3.5-5.0); ALKALINE PHOSPHATASE 75 U/L (38-126); ANION GAP 11 (5-19); ASPARTATE AMINO TRANSFERASE 29 U/L (14-36); BILIRUBIN,DIRECT 0.4 mg/dL (0.0-0.4); BILIRUBIN,TOTAL 0.5 mg/dL (0.2-1.3); BLOOD UREA NITROGEN 12 mg/dL (7-20); CALCIUM 9.6 mg/dL (8.4-10.2); CARBON DIOXIDE 26 mmol/L (22-30); CHLORIDE 100 mmol/L (98-107); GLUCOSE 108 mg/dL (75-110); POTASSIUM 3.6 mmol/L (3.6-5.0); SODIUM 136.8 mmol/L (137-145); TOTAL PROTEIN 7.8 g/dL (6.3-8.2)
[2017-04-13 21:52] LABS: A TYPE INFLUENZA AG NEGATIVE (NEGATIVE); B INFLUENZA AG NEGATIVE (NEGATIVE)
[2017-04-13] MEDS ORDERED: DICYCLOMINE HCL INJ 20 MG/2 ML AMPULE IM ONE (22:10)
[2017-04-13] MEDS ORDERED: METOCLOPRAMIDE HCL INJ/PF 10 MG/2 ML SDV IV ONE (22:11)
[2017-04-13] MEDS ORDERED: NORMAL SALINE 500 ML IV ONE (22:11)
--- NOTE | 2017-04-13 22:49 | ER Document Report ---
ED General - General Chief Complaint: Nausea/Vomiting/Diarrhea Stated Complaint: FLU LIKE SYMPTOMS Time Seen by Provider: 04/13/17 20:12 Mode of Arrival: Ambulatory Notes: Patient is a 46-year-old female presents with complaint of vomiting and diarrhea. Patient says she first started having sinus congestion and runny nose approximately 3-4 days ago. She then progressed to having diarrhea. Says her stools are watery. No blood in her stool. Just today she started having some vomiting. She says she does have some abdominal pain and feels like cramping pain throughout her abdomen. She has had subjective fevers at home but has not taken her temp. She denies being around any sick people but she does work at [employer] and says she is always around a lot of different people because of her job. She denies smoking. Denies alcohol intake. She has no other complaints at this time. TRAVEL OUTSIDE OF THE [place] IN LAST 30 DAYS: No - Related Data Allergies/Adverse Reactions: codeine [Codeine] Allergy (Verified 03/13/17 11:24) rash, headache Penicillins Allergy (Verified 03/13/17 11:24) itching rash hydromorphone HCl [From Dilaudid] Adverse Reaction (Verified 03/13/17 11:24) morphine [Morphine] Adverse Reaction (Verified 03/13/17 11:24) Past Medical History - General Information source: Patient - Social History Smoking Status: Never Smoker Chew tobacco use (# tins/day): No Frequency of alcohol use: None Drug Abuse: None Family History: Arthritis, CAD, DM, Hyperlipidemia, Hypertension, Malignancy, Other Patient has suicidal ideation: No Patient has homicidal ideation: No - Past Medical History Cardiac Medical History: Reports: Hx DVT - LLE, Hx Pulmonary Embolism Pulmonary Medical History: Reports: Hx Asthma Renal/ Medical History: Denies: Hx Peritoneal Dialysis Musculoskeltal Medical History: Reports Hx Arthritis - knees and back, Reports Hx Musculoskeletal Deformity, Reports Hx Musculoskeletal Trauma Psychiatric Medical History: Reports: Hx Depression Past Surgical History: Reports: Hx Section - x 2, Hx Cholecystectomy, Hx Gynecologic Surgery - Endometrial ablation, Hx Hysterectomy, Hx Orthopedic Surgery - Left ACL cadaver graft, bilateral carpal tunnel,, Hx Tubal Ligation - Immunizations Hx Diphtheria, Pertussis, Tetanus Vaccination: Yes Hx Pneumococcal Vaccination: 07/23/14 Review of Systems - Review of Systems Notes: My Normal Review Basic REVIEW OF SYSTEMS: CONSTITUTIONAL : Subjective fevers EENT: Sinus congestion RESPIRATORY: Denies cough, cold, or chest congestion. Denies shortness of breath, difficulty breathing, or wheezing. GASTROINTESTINAL: Crampy abdominal pain. Vomiting and diarrhea. GENITOURINARY: Denies difficulty urinating, painful urination, burning, frequency, or blood in urine. MUSCULOSKELETAL: Denies neck or back pain or joint pain or swelling. SKIN: Denies rash or skin lesions. NEUROLOGICAL: Denies altered mental status or loss of consciousness. Denies headache. Denies weakness or paralysis or loss of use of either side. Denies problems with gait or speech. Denies sensory or motor loss. ALL OTHER SYSTEMS REVIEWED AND NEGATIVE. Physical Exam - Vital signs Vitals: Temp Pulse Resp BP Pulse Ox 99.1 F 102 H 20 167/84 H 98 04/13/17 19:54 04/13/17 19:54 04/13/17 19:54 04/13/17 19:54 04/13/17 19:54 - Notes Notes: General Appearance: Well nourished, alert, cooperative, no acute distress, mild obvious discomfort. Vitals: reviewed, See vital signs table. Head: no swelling or tenderness to the head Eyes: PERRL, EOMI, Conjuctiva clear Mouth: No decreasd moisture Throat: No tonsillar inflammation, No airway obstruction, No lymphadenopathy Ears: Normal-appearing tympanic membranes bilaterally. Lungs: No wheezing, No rales, No rhonci, No accessory muscle use, good air exchange bilaterally. Heart: Normal rate, Regular rythm, No murmur, no rub Abdomen: Normal BS, soft, No rigidity, mild diffuse abdominal soreness to palpation, No guarding, no rebound, Extremities: strength 5/5 in all extremities, good pulses in all extremities, no swelling or tenderness in the extremities, no edema. Skin: warm, dry, appropriate color, no rash Neuro: speech clear, oriented x 3, normal affect, responds appropriately to questions. Course - Re-evaluation Re-evalutation: 04/13/17 23:19 Patient is feeling much improved after the Bentyl and Reglan. I feel she is safe to be discharged home. Encouraged her rest over the next few days to drink liquids stay well-hydrated. We will give her a work note school note for next 2 days. I informed her to return to ER if her symptoms worsen anyway, she has worsening pain, fevers, intractable vomiting, or if she is not feeling better in 2-3 days. Patient agrees with plan will be discharged home. Dictation of this chart was performed using voice recognition software; therefore, there may be some unintended grammatical errors. - Vital Signs Vital signs: Temp Pulse Resp BP Pulse Ox 99.1 F 102 H 20 167/84 H 98 04/13/17 19:54 04/13/17 19:54 04/13/17 19:54 04/13/17 19:54 04/13/17 19:54 - Laboratory Result Diagrams: 04/13/17 20:41 04/13/17 20:41 Laboratory results interpreted by me: 04/13/17 04/13/17 20:41 20:41 WBC 11.4 H MCH 26.8 L RDW 15.9 H Plt Count 454 H Seg Neutrophils % 80.1 H Absolute Neutrophils 9.2 H Sodium 136.8 L Discharge - Discharge Clinical Impression: Abdominal pain Qualifiers: Abdominal location: generalized Qualified Code(s): R10.84 - Generalized abdominal pain Diarrhea Qualifiers: Diarrhea type: unspecified type Qualified Code(s): R19.7 - Diarrhea, unspecified Vomiting Qualifiers: Vomiting type: unspecified Vomiting Intractability: unspecified Nausea presence : with nausea Qualified Code(s): R11.2 - Nausea with vomiting, unspecified Condition: Good Disposition: HOME, SELF-CARE Additional Instructions: Please take the medications as prescribed. Please return to the ER if you have worsening pain, fevers, intractable vomiting, black stools, bloody stools, or feel that you are worsening. Please follow up with a doctor for reevaluation in 2 days. Prescriptions: Dicyclomine HCl [Bentyl 20 mg Tablet] 20 mg PO QID #15 tablet Metoclopramide HCl [Reglan 10 mg Tablet] 1 tab PO ASDIR PRN #25 tablet PRN Reason: Forms: Return to Work, Return to School
[2017-04-13] MEDS ORDERED: ONDANSETRON ODT 4 MG TAB (6 TAB/ER DISP) PO PRN (23:22)
[2017-04-13 23:56] VITALS: BP 166/81
== END 2017-04-13 23:56 | disposition home or self-care (01) ==
LOC: ER 19:41
DX: R11.2 Nausea with vomiting, unspecified (principal); R19.7 Diarrhea, unspecified; R10.84 Generalized abdominal pain; R09.81 Nasal congestion; J45.909 Unspecified asthma, uncomplicated; Z90.49 Acquired absence of other specified parts of digestive tract; Z90.710 Acquired absence of both cervix and uterus; Z88.5 Allergy status to narcotic agent; Z88.0 Allergy status to penicillin
CPT/HCPCS: 99283; 96372; 96361; 96374; 96375; 36415; 85025; 80053; 87804; J0500; J2765; J2405; J7030; J7040

== ENCOUNTER 2017-05-06 13:14 | Emergency (ER) | payer OTHER ==
--- NOTE | 2017-05-06 14:48 | ER Document Report ---
ED ENT - General Chief Complaint: Sinus Congestion Stated Complaint: NECK PAIN,DIZZY,EYE IRRITATION Time Seen by Provider: 05/06/17 14:36 Mode of Arrival: Ambulatory Information source: Patient TRAVEL OUTSIDE OF THE [place] IN LAST 30 DAYS: No - HPI Patient complains to provider of: Ear problem, Throat problem Onset: Other - 1 month Onset/Duration: Gradual, Persistent Quality of pain: Achy Severity: Moderate Pain Level: 3 Location of pain: Ears, Sinus Associated symptoms: Congestion, Cough, Dizziness, Ear pain, Ear drainage, Headache, Neck pain, Sinus pain, Sinus drainage Similar symptoms previously: Yes Recently seen / treated by doctor: Yes Notes: Patient is a 46-year-old female presenting to the emergency room complaining of 1 month history of nasal congestion with greenish mucus discharge, subjective fevers, sinus pain and pressure, right ear pain, dizziness and headache at times , symptoms have been going on intermittently over the past month with no resolution despite [id number] cough and cold treatment - Related Data Allergies/Adverse Reactions: codeine [Codeine] Allergy (Verified 05/06/17 13:18) rash, headache Penicillins Allergy (Verified 05/06/17 13:18) itching rash hydromorphone HCl [From Dilaudid] Adverse Reaction (Verified 05/06/17 13:18) morphine [Morphine] Adverse Reaction (Verified 05/06/17 13:18) Past Medical History - Social History Smoking Status: Never Smoker Chew tobacco use (# tins/day): No Frequency of alcohol use: Occasional Drug Abuse: None Family History: Arthritis, CAD, DM, Hyperlipidemia, Hypertension, Malignancy, Other Patient has suicidal ideation: No Patient has homicidal ideation: No - Past Medical History Cardiac Medical History: Reports: Hx DVT - LLE, Hx Pulmonary Embolism Pulmonary Medical History: Reports: Hx Asthma Renal/ Medical History: Denies: Hx Peritoneal Dialysis Musculoskeltal Medical History: Reports Hx Arthritis - knees and back, Reports Hx Musculoskeletal Deformity, Reports Hx Musculoskeletal Trauma Psychiatric Medical History: Reports: Hx Depression Past Surgical History: Reports: Hx Section - x 2, Hx Cholecystectomy, Hx Gynecologic Surgery - Endometrial ablation, Hx Hysterectomy, Hx Orthopedic Surgery - Left ACL cadaver graft, bilateral carpal tunnel,, Hx Tubal Ligation - Immunizations Hx Diphtheria, Pertussis, Tetanus Vaccination: Yes Hx Pneumococcal Vaccination: 09/27/13 Review of Systems - Review of Systems Constitutional: Chills, Fever EENT: See HPI Cardiovascular: No symptoms reported Respiratory: See HPI Gastrointestinal: No symptoms reported Genitourinary: No symptoms reported Female Genitourinary: No symptoms reported Musculoskeletal: No symptoms reported Skin: No symptoms reported Hematologic/Lymphatic: No symptoms reported Neurological/Psychological: Headaches -: Yes All other systems reviewed and negative Physical Exam - Vital signs Vitals: Temp Pulse Resp BP Pulse Ox 98.3 F 84 16 143/86 H 100 05/06/17 13:21 05/06/17 13:21 05/06/17 13:21 05/06/17 13:21 05/06/17 13:21 Interpretation: Normal - General General appearance: Appears well, Alert - HEENT Head: Normocephalic, Atraumatic Eyes: Normal Conjunctiva: Normal Cornea: Normal Pupils: PERRL Ears: Normal External canal: Erythema Tympanic membrane: Normal Sinus: Maxillary, Tenderness Nasal: Normal Mouth/Lips: Normal Mucous membranes: Normal Pharynx: Normal Neck: Normal - Respiratory Respiratory status: No respiratory distress Chest status: Nontender Breath sounds: Normal Chest palpation: Normal - Cardiovascular Rhythm: Regular Heart sounds: Normal auscultation Murmur: No - Abdominal Inspection: Normal Distension: No distension Bowel sounds: Normal Tenderness: Nontender Organomegaly: No organomegaly - Back Back: Normal, Nontender - Extremities General upper extremity: Normal inspection, Nontender, Normal color, Normal ROM , Normal temperature General lower extremity: Normal inspection, Nontender, Normal color, Normal ROM , Normal temperature, Normal weight bearing. No: Mauricio's sign - Neurological Neuro grossly intact: Yes Cognition: Normal Orientation: AAOx4 Domingo Coma Scale Eye Opening: Spontaneous Leiter Coma Scale Verbal: Oriented Domingo Coma Scale Motor: Obeys Commands Domingo Coma Scale Total: 15 Speech: Normal Motor strength normal: LUE, RUE, LLE, RLE Sensory: Normal - Psychological Associated symptoms: Normal affect, Normal mood - Skin Skin Temperature: Warm Skin Moisture: Dry Skin Color: Normal Course - Re-evaluation Re-evalutation: 05/06/17 14:48 46-year-old female with sinus pain and drainage as well as right ear pain has been going on over the last month, on exam patient has sinus pain and tenderness in the maxillary sinuses, some erythema and mild swelling in the right external auditory canal, explained to patient that symptoms are likely related to recent warming of whether and many planes and pollination, however since symptoms have been going on for 1 month I will put patient on a course of antibiotics and advised follow-up with ENT, patient acknowledges understanding and agreement with this plan - Vital Signs Vital signs: Temp Pulse Resp BP Pulse Ox 98.3 F 84 16 143/86 H 100 05/06/17 13:21 05/06/17 13:21 05/06/17 13:21 05/06/17 13:21 05/06/17 13:21 Discharge - Discharge Clinical Impression: Sinusitis Qualifiers: Sinusitis location: maxillary Chronicity: subacute Qualified Code(s): J01.00 - Acute maxillary sinusitis, unspecified Condition: Stable Disposition: HOME, SELF-CARE Instructions: Sinusitis ([facility]) Additional Instructions: Follow up with your primary care provider in one to 2 days. Return to the emergency room immediately if symptoms worsen or any additional concerns. Prescriptions: Cetirizine HCl [All Day Allergy] 10 mg PO DAILY #30 tablet Sulfamethoxazole/Trimethoprim [Bactrim Ds Tablet] 1 each PO BID #20 tablet
[2017-05-06 15:16] VITALS: BP 140/86
== END 2017-05-06 15:14 | disposition home or self-care (01) ==
LOC: ER 13:14
DX: J01.00 Acute maxillary sinusitis, unspecified (principal); M54.2 Cervicalgia; R42 Dizziness and giddiness; Z88.0 Allergy status to penicillin; Z88.6 Allergy status to analgesic agent; Z86.718 Personal history of other venous thrombosis and embolism; Z86.711 Personal history of pulmonary embolism; Z90.49 Acquired absence of other specified parts of digestive tract; Z90.710 Acquired absence of both cervix and uterus
CPT/HCPCS: 99283

== ENCOUNTER → 2017-06-09 | Outpatient (CLI) | payer OTHER ==
[2017-06-09 12:18] LABS: ABSOLUTE BASOPHILS # (AUTO) 0.1 10^3/uL (0.0-0.2); ABSOLUTE EOSINOPHILS # (AUTO) 0.2 10^3/uL (0.0-0.6); ABSOLUTE MONOCYTES (AUTO) 0.5 10^3/uL (0.1-1.4); ABSOLUTE NEUT (AUTO) 9.8 10^3/uL (1.7-8.2); BASOPHILS % (AUTO) 0.6 % (0-2); EOSINOPHILS % (AUTO) 1.5 % (0-6); HEMATOCRIT 37.5 % (36.0-47.0); HEMOGLOBIN 12.4 g/dL (12.0-15.5); LYMPHOCYTES % (AUTO) 22.3 % (13-45); MEAN CORPUSCULAR HEMOGLOBIN 26.6 pg (27.0-33.4); MEAN CORPUSCULAR HGB CONC 33.2 g/dL (32.0-36.0); MEAN CORPUSCULAR VOLUME 80 fl (80-97); MONOCYTES % (AUTO) 3.7 % (3-13); PLATELET COUNT 418 10^3/uL (150-450); RED BLOOD COUNT 4.68 10^6/uL (3.72-5.28); RED CELL DISTRIBUTION WIDTH 15.5 % (11.5-14.0); SEGMENTED NEUTROPHILS % (AUTO) 71.9 % (42-78); TOTAL CELLS COUNTED % (AUTO) 100 %; WHITE BLOOD COUNT 13.7 10^3/uL (4.0-10.5)
[2017-06-09 12:45] LABS: ALANINE AMINOTRANSFERASE 27 U/L (9-52); ALBUMIN 3.9 g/dL (3.5-5.0); ALKALINE PHOSPHATASE 68 U/L (38-126); ANION GAP 11 (5-19); ASPARTATE AMINO TRANSFERASE 17 U/L (14-36); BILIRUBIN,DIRECT 0.4 mg/dL (0.0-0.4); BILIRUBIN,TOTAL 0.4 mg/dL (0.2-1.3); BLOOD UREA NITROGEN 12 mg/dL (7-20); CALCIUM 9.4 mg/dL (8.4-10.2); CARBON DIOXIDE 27 mmol/L (22-30); CHLORIDE 102 mmol/L (98-107); CHOLESTEROL 152.45 mg/dL (0-200); GLUCOSE 99 mg/dL (75-110); POTASSIUM 4.1 mmol/L (3.6-5.0); SODIUM 139.5 mmol/L (137-145); TOTAL PROTEIN 6.6 g/dL (6.3-8.2); TRIGLYCERIDES 133 mg/dL (<150)
[2017-06-09 12:55] LABS: DIRECT LDL 94 mg/dL (<100)
== END ==
LOC: CCC 11:11
DX: H81.49 Vertigo of central origin, unspecified ear (principal)
CPT/HCPCS: 36415; 80053; 80061; 83036; 84443; 85025

== ENCOUNTER 2017-12-22 17:04 | Emergency (ER) | payer SELFPAY ==
[2017-12-22] MEDS ORDERED: CLINDAMYCIN HCL 150 MG CAPSULE PO ONE (17:48)
[2017-12-22 17:50] VITALS: BP 155/92
--- NOTE | 2017-12-22 17:54 | ER Document Report ---
HPI - HPI Patient complains to provider of: Gingival pain Onset: Other - 4 days Onset/Duration: Persistent Quality of pain: Achy Pain Level: 1 Context: Patient presents complaining of gingival inflammation with cold sores to her lips for the past 4 days. Patient does complain of dental pain as well. Patient denies any fever. Associated Symptoms: Other - Dental pain, gingival tenderness. denies: Earache , Fever Exacerbated by: Denies Relieved by: Denies Similar symptoms previously: Yes Recently seen / treated by doctor: No - ROS ROS below otherwise negative: Yes Systems Reviewed and Negative: Yes All other systems reviewed and negative - CONSTITUTIONAL Constitutional: DENIES: Fever - EENT Notes: Dental pain - GASTROINTESTINAL Gastrointestinal: DENIES: Nausea, Patient vomiting - REPRODUCTIVE Reproductive: DENIES: : - DERM Skin Color: Normal Skin Problems: None Past Medical History - General Information source: Patient - Social History Smoking Status: Never Smoker Frequency of alcohol use: None Drug Abuse: None Occupation: [employer] Family History: Arthritis, CAD, DM, Hyperlipidemia, Hypertension, Malignancy, Other - Past Medical History Cardiac Medical History: Reports: Hx DVT - LLE, Hx Pulmonary Embolism Pulmonary Medical History: Reports: Hx Asthma Renal/ Medical History: Denies: Hx Peritoneal Dialysis Musculoskeletal Medical History: Reports Hx Arthritis - knees and back, Reports Hx Musculoskeletal Deformity, Reports Hx Musculoskeletal Trauma Psychiatric Medical History: Reports: Hx Bipolar Disorder, Hx Depression Past Surgical History: Reports: Hx Section - x 2, Hx Cholecystectomy, Hx Gynecologic Surgery - Endometrial ablation, Hx Hysterectomy, Hx Orthopedic Surgery - Left ACL cadaver graft, bilateral carpal tunnel,, Hx Tubal Ligation - Immunizations Hx Diphtheria, Pertussis, Tetanus Vaccination: Yes Hx Pneumococcal Vaccination: 09/27/13 Vertical Provider Document - CONSTITUTIONAL Agree With Documented VS: Yes Exam Limitations: No Limitations General Appearance: WD/WN, No Apparent Distress - INFECTION CONTROL TRAVEL OUTSIDE OF THE [place] IN LAST 30 DAYS: No - HEENT HEENT: Atraumatic, Normocephalic. negative: Pharyngeal Exudate, Pharyngeal Tenderness, Tympanic Membrane Red, Tympanic Membrane Bulging Mouth Diagram: 1 - Extensive gingivitis 2 - Dental decay Notes: Patient with circular skin lesions to lips, no submental or sublingual swelling - NECK Neck: Lymphadenopathy-Left, Lymphadenopathy-Right - RESPIRATORY Respiratory: Breath Sounds Normal, No Respiratory Distress - CARDIOVASCULAR Cardiovascular: Regular Rate, Regular Rhythm - MUSCULOSKELETAL/EXTREMETIES Musculoskeletal/Extremeties: MAEW - NEURO Level of Consciousness: Awake, Alert, Appropriate Motor/Sensory: No Motor Deficit - DERM Integumentary: Warm, Dry Course - Re-evaluation Re-evalutation: 12/22/17 17:48 Dr. Gray to bedside for examination. Recommends placing patient on clindamycin. No concern for Lei's angina at this time. Discharge - Discharge Clinical Impression: Gingivitis, Dental caries, Herpes labialis Condition: Stable Disposition: HOME, SELF-CARE Instructions: Clindamycin ([facility]), Dental Infection or Abscess ([facility]), Herpes Simplex ([facility]) Additional Instructions: Return immediately for any new or worsening symptoms Followup with your primary care provider, call tomorrow to make a followup appointment Follow-up with a dentist for further evaluation. Prescriptions: Clindamycin HCl [Cleocin Hcl] 300 mg PO QID #28 capsule Docosanol [Abreva] 1 applic TP ASDIR PRN #2 cream.gm PRN Reason: Forms: Return to Work Referrals: EVELIO SINGH MD [Primary Care Provider] - Follow up as needed [facility] [Provider Group] - Follow up as needed
== END 2017-12-22 18:14 | disposition home or self-care (01) ==
LOC: ER 17:04
DX: B00.1 Herpesviral vesicular dermatitis (principal); K05.10 Chronic gingivitis, plaque induced; K02.9 Dental caries, unspecified; K08.89 Other specified disorders of teeth and supporting structures; J45.909 Unspecified asthma, uncomplicated
CPT/HCPCS: 99282

== ENCOUNTER → 2018-03-16 | Outpatient (CLI) | payer OTHER ==
[2018-03-16 09:42] LABS: ABSOLUTE BASOPHILS # (AUTO) 0.1 10^3/uL (0.0-0.2); ABSOLUTE EOSINOPHILS # (AUTO) 0.2 10^3/uL (0.0-0.6); ABSOLUTE LYMPHOCYTES (AUTO) 2.5 10^3/uL (0.5-4.7); ABSOLUTE MONOCYTES (AUTO) 0.5 10^3/uL (0.1-1.4); ABSOLUTE NEUT (AUTO) 7.9 10^3/uL (1.7-8.2); BASOPHILS % (AUTO) 1.2 % (0-2); HEMATOCRIT 38.6 % (36.0-47.0); HEMOGLOBIN 12.8 g/dL (12.0-15.5); LYMPHOCYTES % (AUTO) 22.3 % (13-45); MEAN CORPUSCULAR HEMOGLOBIN 26.3 pg (27.0-33.4); MEAN CORPUSCULAR HGB CONC 33.2 g/dL (32.0-36.0); MEAN CORPUSCULAR VOLUME 79 fl (80-97); MONOCYTES % (AUTO) 4.3 % (3-13); PLATELET COUNT 416 10^3/uL (150-450); RED BLOOD COUNT 4.89 10^6/uL (3.72-5.28); RED CELL DISTRIBUTION WIDTH 15.8 % (11.5-14.0); SEGMENTED NEUTROPHILS % (AUTO) 70.2 % (42-78); TOTAL CELLS COUNTED % (AUTO) 100 %; WHITE BLOOD COUNT 11.2 10^3/uL (4.0-10.5)
[2018-03-16 10:05] LABS: ALANINE AMINOTRANSFERASE 30 U/L (9-52); ALBUMIN 4.1 g/dL (3.5-5.0); ALKALINE PHOSPHATASE 84 U/L (38-126); ANION GAP 7 (5-19); ASPARTATE AMINO TRANSFERASE 22 U/L (14-36); BILIRUBIN,DIRECT 0.1 mg/dL (0.0-0.4); BILIRUBIN,TOTAL 0.6 mg/dL (0.2-1.3); BLOOD UREA NITROGEN 11 mg/dL (7-20); CALCIUM 9.3 mg/dL (8.4-10.2); CARBON DIOXIDE 28 mmol/L (22-30); CHLORIDE 104 mmol/L (98-107); CHOLESTEROL 170.05 mg/dL (0-200); GLUCOSE 114 mg/dL (75-110); SODIUM 138.8 mmol/L (137-145); TOTAL PROTEIN 6.5 g/dL (6.3-8.2); TRIGLYCERIDES 183 mg/dL (<150)
[2018-03-16 10:16] LABS: DIRECT LDL 119 mg/dL (<100)
[2018-03-16 10:20] LABS: VLDL CHOLESTEROL 36.6 mg/dL (10-31)
== END ==
LOC: CCC 09:12
DX: Z00.00 Encounter for general adult medical examination without abnormal findings (principal)
CPT/HCPCS: 36415; 80053; 80061; 83036; 85025

== ENCOUNTER 2018-05-30 12:29 | Emergency (ER) | payer OTHER ==
--- NOTE | 2018-05-30 12:54 | RADIOLOGY REPORT (SQ) ---
EXAM DESCRIPTION: CHEST 2 VIEWS COMPLETED DATE/TIME: 05/30/2018 12:48 pm REASON FOR STUDY: Difficulty Breathing COMPARISON: 09/23/2013 EXAM PARAMETERS: NUMBER OF VIEWS: two views TECHNIQUE: Digital Frontal and Lateral radiographic views of the chest acquired. RADIATION DOSE: NA LIMITATIONS: none FINDINGS: LUNGS AND PLEURA: No opacities, masses or pneumothorax. No pleural effusion. MEDIASTINUM AND HILAR STRUCTURES: No masses or contour abnormalities. HEART AND VASCULAR STRUCTURES: Heart normal size. No evidence for failure. BONES: No acute findings. HARDWARE: None in the chest. OTHER: No other significant finding. IMPRESSION: NO ACUTE RADIOGRAPHIC FINDING IN THE CHEST. TECHNICAL DOCUMENTATION: JOB ID: [id number] [employer]- All Rights Reserved Reading location - IP/workstation name: [email or web address]
[2018-05-30] MEDS ORDERED: IPRATROPIUM/ALBUTEROL 0.5-2.5 MG/3 ML AMPUL NEB ONE (13:06)
[2018-05-30] MEDS ORDERED: METHYLPREDNISOLONE INJ 125 MG/2 ML SDV IM ONE (13:06)
--- NOTE | 2018-05-30 13:07 | ER Document Report ---
ED General - General Chief Complaint: Breathing Difficulty Stated Complaint: BREATHING PROBLEMS Time Seen by Provider: 05/30/18 12:58 Primary Care Provider: DEBORA HOLT [Primary Care Provider] - Follow up as needed TRAVEL OUTSIDE OF THE [place] IN LAST 30 DAYS: No - Related Data Allergies/Adverse Reactions: codeine [Codeine] Allergy (Verified 12/22/17 17:05) rash, headache Penicillins Allergy (Verified 12/22/17 17:05) itching rash hydromorphone HCl [From Dilaudid] Adverse Reaction (Verified 12/22/17 17:05) morphine [Morphine] Adverse Reaction (Verified 12/22/17 17:05) Past Medical History - Social History Family History: Arthritis, CAD, DM, Hyperlipidemia, Hypertension, Malignancy, Other - Past Medical History Cardiac Medical History: Reports: Hx DVT - LLE, Hx Pulmonary Embolism Pulmonary Medical History: Reports: Hx Asthma Renal/ Medical History: Denies: Hx Peritoneal Dialysis Musculoskeletal Medical History: Reports Hx Arthritis - knees and back, Reports Hx Musculoskeletal Deformity, Reports Hx Musculoskeletal Trauma Psychiatric Medical History: Reports: Hx Bipolar Disorder, Hx Depression Past Surgical History: Reports: Hx Section - x 2, Hx Cholecystectomy, Hx Gynecologic Surgery - Endometrial ablation, Hx Hysterectomy, Hx Orthopedic Surgery - Left ACL cadaver graft, bilateral carpal tunnel,, Hx Tubal Ligation - Immunizations Hx Diphtheria, Pertussis, Tetanus Vaccination: Yes Hx Pneumococcal Vaccination: 09/27/13 Physical Exam - Vital signs Vitals: Temp Pulse Resp BP Pulse Ox 98.1 F 80 24 H 149/65 H 96 05/30/18 12:31 05/30/18 12:31 05/30/18 12:31 05/30/18 12:31 05/30/18 12:31 Course - Vital Signs Vital signs: Temp Pulse Resp BP Pulse Ox 98.1 F 80 24 H 149/65 H 96 05/30/18 12:31 05/30/18 12:31 05/30/18 12:31 05/30/18 12:31 05/30/18 12:31 Discharge - Discharge [facility] - Follow up as needed
--- NOTE | 2018-05-30 13:12 | ER Document Report ---
ED Medical Screen (RME) - General Chief Complaint: Breathing Difficulty Stated Complaint: BREATHING PROBLEMS Time Seen by Provider: 05/30/18 12:58 Primary Care Provider: [facility] [Primary Care Provider] - Follow up as needed Notes: Patient is a 47-year-old female with history of asthma and PE that presents to the emergency department for chief complaint of wheezing and difficulty breathing. Patient reports is been going on for several days almost 2 weeks now, initially was seen by a [facility], and was prescribed 20 mg of prednisone daily, and albuterol inhaler without much relief of her symptoms so she decided come to the ED, she also states she had history of PE about 6 years ago, was on Xarelto for 20 mg, was recently reduced to 10 mg and she was concerned about that as well. She denies having any chest pain. ROS: Other than noted above, the 12 point review of systems was reviewed with the patient and were negative, all pertinent findings are included in the HPI. PHYSICAL EXAMINATION: Vital signs reviewed. GENERAL: Obese female, appears uncomfortable. HEAD: Atraumatic, normocephalic. EYES: Pupils equal round extraocular movements intact, conjunctiva are normal. ENT: Nares patent NECK: Normal range of motion CV: Heart regular rate and rhythm LUNGS: Mild respiratory distress, increased work of breathing, diffuse wheezing noted throughout all lung ge. Musculoskeletal: Normal range of motion NEUROLOGICAL: Normal speech PSYCH: Normal mood, normal affect. MDM: Patient seen and examined for rapid initial assessment. Vital signs reviewed. A comprehensive ED assessment and evaluation of the patient, analysis of test results and completion of the medical decision making process will be conducted by additional ED providers. *Note is created using voice recognition software and may contain spelling, syntax or grammatical errors. TRAVEL OUTSIDE OF THE [place] IN LAST 30 DAYS: No - Related Data Allergies/Adverse Reactions: codeine [Codeine] Allergy (Verified 12/22/17 17:05) rash, headache Penicillins Allergy (Verified 12/22/17 17:05) itching rash hydromorphone HCl [From Dilaudid] Adverse Reaction (Verified 12/22/17 17:05) morphine [Morphine] Adverse Reaction (Verified 12/22/17 17:05) Past Medical History - Social History Chew tobacco use (# tins/day): No Frequency of alcohol use: None Drug Abuse: None - Past Medical History Cardiac Medical History: Reports: Hx DVT - LLE, Hx Pulmonary Embolism Pulmonary Medical History: Reports: Hx Asthma Renal/ Medical History: Denies: Hx Peritoneal Dialysis Musculoskeltal Medical History: Reports Hx Arthritis - knees and back, Reports Hx Musculoskeletal Deformity, Reports Hx Musculoskeletal Trauma Psychiatric Medical History: Reports: Hx Bipolar Disorder, Hx Depression Past Surgical History: Reports: Hx Section - x 2, Hx Cholecystectomy, Hx Gynecologic Surgery - Endometrial ablation, Hx Hysterectomy, Hx Orthopedic Surgery - Left ACL cadaver graft, bilateral carpal tunnel,, Hx Tubal Ligation - Immunizations Hx Diphtheria, Pertussis, Tetanus Vaccination: Yes Physical Exam - Vital signs Vitals: Temp Pulse Resp BP Pulse Ox 98.1 F 80 24 H 149/65 H 96 05/30/18 12:31 05/30/18 12:31 05/30/18 12:31 05/30/18 12:31 05/30/18 12:31 Course - Vital Signs Vital signs: Temp Pulse Resp BP Pulse Ox 98.1 F 80 24 H 149/65 H 96 05/30/18 12:31 05/30/18 12:31 05/30/18 12:31 05/30/18 12:31 05/30/18 12:31 Doctor's Discharge - Discharge Referrals: [facility] [Primary Care Provider] - Follow up as needed
[2018-05-30 14:24] LABS: ABSOLUTE BASOPHILS # (AUTO) 0.1 10^3/uL (0.0-0.2); ABSOLUTE LYMPHOCYTES (AUTO) 1.3 10^3/uL (0.5-4.7); ABSOLUTE MONOCYTES (AUTO) 0.8 10^3/uL (0.1-1.4); ABSOLUTE NEUT (AUTO) 8.5 10^3/uL (1.7-8.2); BASOPHILS % (AUTO) 0.9 % (0-2); EOSINOPHILS % (AUTO) 0.4 % (0-6); HEMATOCRIT 37.6 % (36.0-47.0); HEMOGLOBIN 12.7 g/dL (12.0-15.5); LYMPHOCYTES % (AUTO) 11.7 % (13-45); MEAN CORPUSCULAR HGB CONC 33.8 g/dL (32.0-36.0); MEAN CORPUSCULAR VOLUME 80 fl (80-97); MONOCYTES % (AUTO) 7.1 % (3-13); PLATELET COUNT 405 10^3/uL (150-450); RED BLOOD COUNT 4.71 10^6/uL (3.72-5.28); RED CELL DISTRIBUTION WIDTH 15.6 % (11.5-14.0); SEGMENTED NEUTROPHILS % (AUTO) 79.9 % (42-78); TOTAL CELLS COUNTED % (AUTO) 100 %; WHITE BLOOD COUNT 10.7 10^3/uL (4.0-10.5)
[2018-05-30 14:33] LABS: INTERNATIONAL RATION (INR) 0.94; PROTHROMBIN TIME 13.1 SEC (11.4-15.4)
[2018-05-30 14:48] LABS: ALANINE AMINOTRANSFERASE 27 U/L (9-52); ALKALINE PHOSPHATASE 76 U/L (38-126); ANION GAP 12 (5-19); ASPARTATE AMINO TRANSFERASE 26 U/L (14-36); BILIRUBIN,DIRECT 0.2 mg/dL (0.0-0.4); BILIRUBIN,TOTAL 0.4 mg/dL (0.2-1.3); BLOOD UREA NITROGEN 14 mg/dL (7-20); CALCIUM 9.8 mg/dL (8.4-10.2); CARBON DIOXIDE 26 mmol/L (22-30); CHLORIDE 100 mmol/L (98-107); GLUCOSE 101 mg/dL (75-110); POTASSIUM 4.2 mmol/L (3.6-5.0); SODIUM 138.3 mmol/L (137-145)
--- NOTE | 2018-05-30 17:07 | ER Document Report ---
ED General - General Chief Complaint: Breathing Difficulty Stated Complaint: BREATHING PROBLEMS Time Seen by Provider: 05/30/18 12:58 Primary Care Provider: [facility] [NO LOCAL MD] - Follow up as needed Mode of Arrival: Ambulatory Information source: Patient Notes: Patient is a 47-year-old female with past medical history of asthma, bronchitis and pulmonary embolism that presents to the emergency department with complaints of wheezing, cough and shortness of breath. She reports this is been going on for 10-14 days. She states that she recently completed a course of prednisone however she states she was only taking 20 mg/day. Patient denies any history of diabetes. She denies any chest pain. Patient does report that she has taken Xarelto for her history of PE. TRAVEL OUTSIDE OF THE [place] IN LAST 30 DAYS: No - Related Data Allergies/Adverse Reactions: codeine [Codeine] Allergy (Verified 12/22/17 17:05) rash, headache Penicillins Allergy (Verified 12/22/17 17:05) itching rash hydromorphone HCl [From Dilaudid] Adverse Reaction (Verified 12/22/17 17:05) morphine [Morphine] Adverse Reaction (Verified 12/22/17 17:05) Past Medical History - General Information source: Patient - Social History Smoking Status: Former Smoker Chew tobacco use (# tins/day): No Frequency of alcohol use: None Drug Abuse: None Family History: Arthritis, CAD, DM, Hyperlipidemia, Hypertension, Malignancy, Other Patient has suicidal ideation: No Patient has homicidal ideation: No - Past Medical History Cardiac Medical History: Reports: Hx DVT - LLE, Hx Pulmonary Embolism Pulmonary Medical History: Reports: Hx Asthma Renal/ Medical History: Denies: Hx Peritoneal Dialysis Musculoskeletal Medical History: Reports Hx Arthritis - knees and back, Reports Hx Musculoskeletal Deformity, Reports Hx Musculoskeletal Trauma Psychiatric Medical History: Reports: Hx Bipolar Disorder, Hx Depression Past Surgical History: Reports: Hx Section - x 2, Hx Cholecystectomy, Hx Gynecologic Surgery - Endometrial ablation, Hx Hysterectomy, Hx Orthopedic Surgery - Left ACL cadaver graft, bilateral carpal tunnel,, Hx Tubal Ligation - Immunizations Hx Diphtheria, Pertussis, Tetanus Vaccination: Yes Hx Pneumococcal Vaccination: 09/27/13 Review of Systems - Review of Systems Constitutional: denies: Chills, Fever EENT: Nose congestion, Nose discharge Cardiovascular: Chest pain Respiratory: Cough, Short of breath, Wheezing Gastrointestinal: denies: Nausea, Vomiting Genitourinary: No symptoms reported Female Genitourinary: No symptoms reported Musculoskeletal: No symptoms reported Skin: No symptoms reported Hematologic/Lymphatic: No symptoms reported Neurological/Psychological: No symptoms reported Physical Exam - Vital signs Vitals: Temp Pulse Resp BP Pulse Ox 98.1 F 80 24 H 149/65 H 96 05/30/18 12:31 05/30/18 12:05/30/18 12:05/30/18 12:05/30/18 12:31 - Notes Notes: PHYSICAL EXAMINATION: GENERAL: Well-appearing, well-nourished and in no acute distress. HEAD: Atraumatic, normocephalic. EYES: Pupils equal round and reactive to light, extraocular movements intact, conjunctiva are normal. ENT: Nares patent, oropharynx clear without exudates. Moist mucous membranes. NECK: Normal range of motion, supple without lymphadenopathy LUNGS: Occasional expiratory wheeze noted HEART: Regular rate and rhythm without murmurs ABDOMEN: Soft, nontender, nondistended abdomen. No guarding, no rebound. No masses appreciated. Female : deferred Musculoskeletal: Normal range of motion, no pitting or edema. No cyanosis. NEUROLOGICAL: Cranial nerves grossly intact. Normal speech, normal gait. Normal sensory, motor exams PSYCH: Normal mood, normal affect. SKIN: Warm, Dry, normal turgor, no rashes or lesions noted. Course - Re-evaluation Re-evalutation: Patient was initially seen by physician in triage who initiated her workup. At the time that I initially evaluated this patient patient had already received Solu-Medrol 125 as well as breathing treatments. Patient reports that her symptoms have much improved. She has an occasional expiratory wheeze noted bilaterally. Patient reports that she is breathing much better now. Patient denies any chest pain or shortness of breath at this time. Chest x-ray with no acute findings to include infiltrates or pneumothorax. Mild leukocytosis noted on CBC. CMP is unremarkable, troponin is negative. Patient feels that she is ready to be discharged home at this time. I will start patient on prednisone 60 mg daily for 5 days as I feel that she was being underdosed at the 20 mg that she has just completed. I will start patient on antibiotics as well as patient has been having these symptoms for over 10 days now. Given patient's history of asthma and recurrent bronchitis I feel this is an appropriate treatment at this time. Patient does not have insurance and states that she cannot afford the doxycycline so I will put patient on azithromycin. Patient encouraged to have close follow-up with her primary care provider and return to the emergency department if she experiences any worsening symptoms to include chest pain, shortness of breath, tachycardia or any other symptom that is concerning to her. Patient and family member at bedside are in agreement's with this plan. - Vital Signs Vital signs: Temp Pulse Resp BP Pulse Ox 97.5 F 88 16 137/66 H 96 05/30/18 17:15 05/30/18 17:15 05/30/18 17:15 05/30/18 17:15 05/30/18 17:15 - Laboratory Result Diagrams: 05/30/18 13:04 05/30/18 13:04 Laboratory results interpreted by me: 05/30/18 13:04 WBC 10.7 H RDW 15.6 H Seg Neutrophils % 79.9 H Lymphocytes % 11.7 L Absolute Neutrophils 8.5 H Discharge - Discharge Clinical Impression: Bronchitis Asthma exacerbation Qualifiers: Asthma severity: mild Asthma persistence: unspecified Qualified Code(s): J45.901 - Unspecified asthma with (acute) exacerbation Condition: Stable Disposition: HOME, SELF-CARE Additional Instructions: Bronchitis with Bronchospasm (Wheezing) You have bronchitis with bronchospasm (wheezing). Sometimes people develop wheezing with a chest cold. This occurs either because of an underlying tendency toward asthma or because the virus itself irritates the bronchial tubes. This irritation causes cough, shortness of breath, and wheezing. Emergency treatment of bronchospasm may include adrenaline shots or bronchodilator aerosol. You may feel lightheaded and have a rapid pulse for an hour or two. Rest and get plenty of fluids. At home, we'll treat you with a bronchodilator inhaler. Corticosteroids may be required for some patients. Until you recover, avoid chemical fumes, dusts, pollens, and exercising in very cold or dry air. If you smoke, stop now! Most cases of bronchitis get better without antibiotics. We prescribe antibiotics when we believe bacteria are damaging your airways, or if there's high risk the bronchitis will worsen into pneumonia. Increase your fluid intake. A cool mist humidifier may make your lungs more comfortable. An expectorant (cough medicine that loosens phlegm) can help. Repeated episodes of bronchitis and bronchospasm may result in lung damage -- for example, chronic bronchitis, recurrent pneumonias, or emphysema. If you develop a fever, increased wheezing, chest pain, or severe shortness of breath, you should contact the doctor immediately. Please take medications as prescribed. [facility] as [facility]. Return to the emergency department for any additional concerns to include difficulty breathing, worsening shortness of breath or fever that is not controlled by Tylenol or ibuprofen. Prescriptions: Azithromycin [Zithromax 250 mg Tablet] 250 mg PO ASDIR PRN #6 tablet PRN Reason: Prednisone [Deltasone 20 mg Tablet] 3 tab PO DAILY 5 Days #15 tablet [facility] [NO LOCAL MD] - Follow up as needed
[2018-05-30 17:16] VITALS: BP 137/66
--- NOTE | 2018-05-30 21:25 | EKG REPORT ---
SEVERITY:- NORMAL ECG - SINUS RHYTHM : Confirmed by: Donna Mendoza MD 30-May-2018 21:24:16
== END 2018-05-30 17:16 | disposition home or self-care (01) ==
LOC: ER 12:29
DX: J45.901 Unspecified asthma with (acute) exacerbation (principal); R05 Cough; R06.02 Shortness of breath; Z79.899 Other long term (current) drug therapy; Z79.01 Long term (current) use of anticoagulants; Z86.711 Personal history of pulmonary embolism; Z87.891 Personal history of nicotine dependence
CPT/HCPCS: 93005; 94640; 99285; 96372; 36415; 85025; 85610; 80053; 84484; 71046; 93010; J2930; J7620

== ENCOUNTER 2018-07-15 15:50 | Emergency (ER) | payer OTHER ==
[2018-07-15] MEDS ORDERED: KETOROLAC TROMETHAMINE 60 MG/2 ML SDV IM ONE (16:35)
--- NOTE | 2018-07-15 16:43 | ER Document Report ---
Addendum entered and electronically signed by KOBE CARR PA-C 07/15/18 17:10: Discharge - Discharge Clinical Impression: Left knee pain Qualifiers: Chronicity: acute Qualified Code(s): M25.562 - Pain in left knee Condition: Stable Disposition: HOME, SELF-CARE Instructions: Ice & Elevation ([facility]) Additional Instructions: Rest, Ice, Compression, Elevation Use splint as directed Tylenol/ibuprofen as needed Light stretches daily Strength exercises as able Moist heat and massage may help F/u with your PCP in 3-5 days for a recheck call orthopedics to schedule an appointment for further evaluation and management Return to the ED with any worsening symptoms and/or development of fever, headache, chest pain, palpitations, syncope, shortness of breath, trouble breathing, abdominal pain, n/v/d, muscle weakness/paralysis, numbness/tingling, swelling, redness, or other worsening symptoms that are concerning to you. Prescriptions: Diclofenac Sodium [Voltaren] 4 gm TP QID PRN #100 gel..gm. PRN Reason: Forms: Elevated Blood Pressure Referrals: [facility] ([facility]) [Provider Group] - Follow up in 3-5 days Original Note: HPI - HPI Time Seen by Provider: 07/15/18 16:26 Pain Level: 4 Notes: Patient is a 47-year-old female with a history of morbid obesity, DVT in the right lower extremity and on blood thinners, and hypertension as well as previous ACL repair in the left knee who presents complaining of acute on chronic left knee pain. 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 Patient states that she had another incident today, but otherwise occurs multiple times per week. Patient states that it is back in place, but she did have pain that brought her to tears today. Patient is part of our [facility] and has not been able to see an orthopedic provider in a long time. Patient states that she does not need an x- ray at this time, but is looking for further guidance. Patient states that she is able to ambulate, but does have a limp right now. Pain does not radiate. Denies any headache, fever, URI, sore throat, chest pain, palpitations, syncope, cough, shortness of breath, wheeze, dyspnea, abdominal pain, nausea/vomiting/diarrhea, urinary retention, dysuria, hematuria, loss of control of bowel or bladder, numbness/tingling, muscle paralysis/weakness, or rash. - ROS Systems Reviewed and Negative: Yes All other systems reviewed and negative - REPRODUCTIVE Reproductive: DENIES: : Past Medical History - Social History Smoking Status: Never Smoker Family History: Arthritis, CAD, DM, Hyperlipidemia, Hypertension, Malignancy, Other - Past Medical History Cardiac Medical History: Reports: Hx DVT - LLE, Hx Pulmonary Embolism Pulmonary Medical History: Reports: Hx Asthma Renal/ Medical History: Denies: Hx Peritoneal Dialysis Musculoskeletal Medical History: Reports Hx Arthritis - knees and back, Reports Hx Musculoskeletal Deformity, Reports Hx Musculoskeletal Trauma Psychiatric Medical History: Reports: Hx Bipolar Disorder, Hx Depression Past Surgical History: Reports: Hx Section - x 2, Hx Cholecystectomy, Hx Gynecologic Surgery - Endometrial ablation, Hx Hysterectomy, Hx Orthopedic Surgery - Left ACL cadaver graft, bilateral carpal tunnel,, Hx Tubal Ligation - Immunizations Hx Diphtheria, Pertussis, Tetanus Vaccination: Yes Hx Pneumococcal Vaccination: 09/27/13 Vertical Provider Document - CONSTITUTIONAL Agree With Documented VS: Yes Notes: PHYSICAL EXAMINATION: GENERAL: Well-appearing, well-nourished and in no acute distress. LUNGS: Breath sounds clear to auscultation bilaterally and equal. No wheezes rales or rhonchi. HEART: Regular rate and rhythm without murmurs, rubs, gallops. Musculoskeletal: Lt knee: No obvious swelling, ecchymosis, effusion, or deformity. FROM to passive/active and flexion >90. + tenderness to the anterior knee, mild. Strength 5+/5. N/V intact distal. Ligamentous grossly stable, very limited exam with larger leg size, however. Coni grossly negative. Patellar grind minimally +. No calf tenderness. Extremities: No cyanosis, clubbing, or edema b/l. Peripheral pulses 2+. Capillary refill less than 3 seconds. Mauricio neg b/l. NEUROLOGICAL: Normal speech, limping gait. Normal sensory, motor exams PSYCH: Normal mood, normal affect. SKIN: Warm, Dry, normal turgor, no rashes or lesions noted. - INFECTION CONTROL TRAVEL OUTSIDE OF THE [place] IN LAST 30 DAYS: No Course - Re-evaluation Re-evalutation: 07/15/18 16:38 Patient is an afebrile, well-hydrated, 47-year-old female who presents to the ED with left knee pain which I suspect contusion from probable dislocation/reduction of patella which is a 4 year chronic intermittent issue. Vitals are acceptable without any significant tachycardia, tachypnea, or hypoxia. PE is otherwise unremarkable for any neurovascular compromise, obvious tendon/ligament rupture, obvious current fracture/dislocation, septic joint. Pt declined XR. Knee immobilizer applied but she declined crutches. Chidi-wrap also provided. Toradol given IM. Patient is nontoxic-appearing. Patient is able to ambulate and weight-bear although she is limping. No other labs or imaging warranted at this time based on H&P. Conservative measures otherwise for symptoms. Recheck with your PCM in 3-5 days. Schedule consult orthopedics. Return to the ED with any worsening/concerning symptoms otherwise as reviewed in discharge. Patient is in agreement. - Vital Signs Vital signs: Temp Pulse Resp BP Pulse Ox 98.3 F 95 16 142/80 H 96 07/15/18 16:06 07/15/18 16:06 07/15/18 16:06 07/15/18 16:06 07/15/18 16:06 Discharge - Discharge Clinical Impression: Left knee pain Qualifiers: Chronicity: acute Qualified Code(s): M25.562 - Pain in left knee Condition: Stable Disposition: HOME, SELF-CARE Instructions: Ice & Elevation ([facility]) Additional Instructions: Rest, Ice, Compression, Elevation Use splint as directed Tylenol/ibuprofen as needed Light stretches daily Strength exercises as able Moist heat and massage may help F/u with your PCP in 3-5 days for a recheck call orthopedics to schedule an appointment for further evaluation and management Return to the ED with any worsening symptoms and/or development of fever, headache, chest pain, palpitations, syncope, shortness of breath, trouble breathing, abdominal pain, n/v/d, muscle weakness/paralysis, numbness/tingling, swelling, redness, or other worsening symptoms that are concerning to you. Forms: Elevated Blood Pressure Referrals: [facility] ([facility]) [Provider Group] - Follow up in 3-5 days
[2018-07-15 17:01] VITALS: BP 135/63
== END 2018-07-15 17:12 | disposition home or self-care (01) ==
LOC: ER 15:50
DX: M25.562 Pain in left knee (principal); E66.01 Morbid (severe) obesity due to excess calories; Z86.718 Personal history of other venous thrombosis and embolism; Z86.711 Personal history of pulmonary embolism; Z90.49 Acquired absence of other specified parts of digestive tract; Z79.01 Long term (current) use of anticoagulants
CPT/HCPCS: 99283; 96372; L1830; J1885

== ENCOUNTER 2018-09-28 12:11 | Emergency (ER) | payer OTHER ==
[2018-09-28 12:45] VITALS: BP 147/80
--- NOTE | 2018-09-28 14:09 | ER Document Report ---
HPI - HPI Time Seen by Provider: 09/28/18 14:04 Pain Level: 4 Notes: 48-year-old female presents the ED with complaints of lumbar sacral pain that radiates down bilateral lower legs, denies any numbness or tingling, denies any trauma. Pain is shooting. Has become progressively worse over the last couple days but patient has had for the last month. Has tried Advil with some relief. Patient does have follow-up with her primary care provider in 2 days. Patient does have a history of asthma her typical pulse ox is 97% denies fevers, chills, chest pain,palpitations, shortness of breath, dyspnea, nausea, vomiting, diarrhea, abdominal pain, hematuria,blurred vision, double vision, loss of vision, speech changes, LH, dizziness, syncope, headaches, wheezing, ST, URI, neck pain, weakness, bowel or bladder dysfunction, saddle anesthesia, numbness or tingling in bilateral upper or lower extremities equally, muscle paralysis, weakness in bilateral upper or lower extremities equally or rash. - REPRODUCTIVE Reproductive: DENIES: : Past Medical History - General Information source: Patient - Social History Smoking Status: Never Smoker Family History: Arthritis, CAD, DM, Hyperlipidemia, Hypertension, Malignancy, Other - Past Medical History Cardiac Medical History: Reports: Hx DVT - LLE, Hx Pulmonary Embolism Pulmonary Medical History: Reports: Hx Asthma Renal/ Medical History: Denies: Hx Peritoneal Dialysis Musculoskeletal Medical History: Reports Hx Arthritis - knees and back, Reports Hx Musculoskeletal Deformity, Reports Hx Musculoskeletal Trauma Psychiatric Medical History: Reports: Hx Bipolar Disorder, Hx Depression Past Surgical History: Reports: Hx Section - x 2, Hx Cholecystectomy, Hx Gynecologic Surgery - Endometrial ablation, Hx Hysterectomy, Hx Orthopedic Surgery - Left ACL cadaver graft, bilateral carpal tunnel,, Hx Tubal Ligation - Immunizations Hx Diphtheria, Pertussis, Tetanus Vaccination: Yes Hx Pneumococcal Vaccination: 09/27/13 Vertical Provider Document - CONSTITUTIONAL Agree With Documented VS: Yes Exam Limitations: No Limitations Notes: PHYSICAL EXAMINATION: GENERAL: Well-appearing, well-nourished and in no acute distress. HEAD: Atraumatic, normocephalic. EYES: Pupils equal round and reactive to light, extraocular movements intact, conjunctiva are normal. ENT: Nares patent, oropharynx clear without exudates. Moist mucous membranes. NECK: Normal range of motion, supple without lymphadenopathy LUNGS: Breath sounds clear to auscultation bilaterally and equal. No wheezes rales or rhonchi. HEART: Regular rate and rhythm without murmurs ABDOMEN: Soft, nontender, nondistended abdomen. No guarding, no rebound. No masses appreciated. Female : deferred Musculoskeletal: Normal range of motion, no pitting or edema. No cyanosis. Back pain NEUROLOGICAL: Cranial nerves grossly intact. Normal speech, normal gait. Normal sensory, motor exams PSYCH: Normal mood, normal affect. SKIN: Warm, Dry, normal turgor, no rashes or lesions noted. - INFECTION CONTROL TRAVEL OUTSIDE OF THE [place] IN LAST 30 DAYS: No Course - Re-evaluation Re-evalutation: 09/28/18 15:35 CT of lumbar spine negative for acute fracture dislocation, x-ray of sacrum cannot exclude a fracture, will CT lumbar spine for further evaluation. - Vital Signs Vital signs: Temp Pulse Resp BP Pulse Ox 98.2 F 91 18 147/80 H 95 09/28/18 12:43 09/28/18 12:43 09/28/18 12:43 09/28/18 12:43 09/28/18 12:43 Discharge - Discharge Clinical Impression: Lower back pain, sarcal back pain Disposition: ELOPED Referrals: CAREN MARTINEZ MD [ACTIVE PROVISIONAL STAFF] - Follow up as needed LORENZO AMAYA MD [COMMUNITY BASED STAFF] - Follow up as needed
[2018-09-28] MEDS ORDERED: KETOROLAC TROMETHAMINE 60 MG/2 ML SDV IM ONE (14:43)
[2018-09-28 15:05] LABS: APPEARANCE,URINE SLIGHTLY-CLOUDY; BILIRUBIN,URINE NEGATIVE (NEGATIVE); COLOR,URINE YELLOW; GLUCOSE, URINE NEGATIVE (NEGATIVE); KETONES,URINE NEGATIVE (NEGATIVE); LEUKOCYTE ESTERASE,URINE NEGATIVE (NEGATIVE); NITRITE,URINE NEGATIVE (NEGATIVE); PROTEIN,URINE NEGATIVE (NEGATIVE); UROBILINOGEN,URINE NEGATIVE mg/dL (<2.0)
--- NOTE | 2018-09-28 15:27 | RADIOLOGY REPORT (SQ) ---
EXAM DESCRIPTION: L SPINE WHOLE COMPLETED DATE/TIME: 09/28/2018 3:12 pm REASON FOR STUDY: sacaral/lumbar pain x 2 days, has had for 1 month COMPARISON: None. NUMBER OF VIEWS: Five views including obliques. TECHNIQUE: AP, lateral, oblique, and sacral radiographic images acquired of the lumbar spine. LIMITATIONS: None. FINDINGS: MINERALIZATION: Normal. SEGMENTATION: Normal. No transitional anatomy. ALIGNMENT: Grade 1 anterolisthesis of L4 on L5. VERTEBRAE: Maintained height. No fracture or worrisome bone lesion. DISCS: Preserved height. No significant osteophytes or end plate irregularity. POSTERIOR ELEMENTS: Pedicles and facets are intact. No pars defect or posterior arch defects. HARDWARE: None in the spine. PARASPINAL SOFT TISSUES: Normal. PELVIS: Intact as visualized. No fractures or worrisome bone lesions. SI joints intact. OTHER: No other significant finding. IMPRESSION: Grade 1 anterolisthesis of L4 on L5. TECHNICAL DOCUMENTATION: JOB ID: [id number] [employer]- All Rights Reserved Reading location - IP/workstation name: [email or web address]
--- NOTE | 2018-09-28 15:28 | RADIOLOGY REPORT (SQ) ---
EXAM DESCRIPTION: SACRUM AND COCCYX COMPLETED DATE/TIME: 09/28/2018 3:12 pm REASON FOR STUDY: sacaral/lumbar pain x 2 days, has had for 1 month COMPARISON: None. NUMBER OF VIEWS: Three views. TECHNIQUE: AP, lateral, and tilt views of the sacrum and coccyx. LIMITATIONS: None. FINDINGS: MINERALIZATION: Normal. BONES: Cannot exclude a fracture of the last sacral segment. SOFT TISSUES: No soft tissue swelling. No foreign body. OTHER: No other significant finding. IMPRESSION: Cannot exclude fracture of the last sacral segment. TECHNICAL DOCUMENTATION: JOB ID: [id number] [employer]- All Rights Reserved Reading location - IP/workstation name: [email or web address]
--- NOTE | 2018-09-28 16:01 | RADIOLOGY REPORT (SQ) ---
EXAM DESCRIPTION: CT LUMBAR SPINE WITHOUT COMPLETED DATE/TIME: 09/28/2018 3:48 pm REASON FOR STUDY: questionable sacral fracture on xray COMPARISON: Same day radiographs TECHNIQUE: Axial images acquired through the lumbar spine without intravenous contrast. Images revi ewed with lung, soft tissue and bone windows. Reconstructed coronal and sagittal MPR images reviewed . All images stored on PACS. All CT scanners at this facility use dose modulation, iterative reconstruction, and/or weight based d osing when appropriate to reduce radiation dose to as low as reasonably achievable (ALARA). [facility]: Dose Right [facility]: CareDose [facility]: Dose Right [facility]: Teradose 4D [facility]: [employer] RADIATION DOSE: 1735 mGy cm LIMITATIONS: None. FINDINGS: SEGMENTATION: Normal. No transitional anatomy. ALIGNMENT: Normal. VERTEBRAL BODIES: No fractures. No dislocation. No acute findings. DISCS: No significant protrusions. Study limited by lack of intrathecal contrast. PEDICLES, TRANSVERSE PROCESSES: No fractures. No dislocation. No acute findings. FACETS, POSTERIOR ELEMENTS: There is focally severe facet degenerative disease of L4-L5 with mild fac et degenerative disease elsewhere. No fractures. No dislocation. No spinal stenosis. HARDWARE: None in the spine. VISUALIZED RIBS: No fractures. SOFT TISSUES: No significant or acute finding in adjacent soft tissues. OTHER: No other significant finding. IMPRESSION: No fracture or dislocation of the lumbar spine or imaged sacrum. The sacrum is imaged t hrough the S4 segment without evidence of fracture. TECHNICAL DOCUMENTATION: JOB ID: [id number] Quality ID # [id number]: Final reports with documentation of one or more dose reduction techniques (e.g., Au tomated exposure control, adjustment of the mA and/or kV according to patient size, use of iterative reconstruction technique) 2010 [email or web address]- All Rights Reserved Reading location - IP/workstation name: [email or web address]
== END 2018-09-28 16:47 | disposition left against medical advice (07) ==
LOC: ER 12:11
DX: M54.5 Low back pain (principal); M53.3 Sacrococcygeal disorders, not elsewhere classified; J45.909 Unspecified asthma, uncomplicated
CPT/HCPCS: 99281; 96374; 81001; 72220; 72110; 72131; J1885

== ENCOUNTER 2018-09-28 17:26 | Emergency (ER) | payer OTHER ==
--- NOTE | 2018-09-28 17:46 | ER Document Report ---
HPI - HPI Time Seen by Provider: 09/28/18 17:36 Pain Level: 2 Notes: Patient eloped, came right back after picking up her car, was not able to get CT pelvis for suspected sacral fracture seen on sacral x-ray that was seen today. 48-year-old female presents the ED with complaints of lumbar sacral pain that radiates down bilateral lower legs, denies any numbness or tingling, denies any trauma. Pain is shooting. Has become progressively worse over the last couple days but patient has had for the last month. Has tried Advil with some relief. Patient does have follow-up with her primary care provider in 2 days. Patient does have a history of asthma her typical pulse ox is 97% denies fevers, chills, chest pain,palpitations, shortness of breath, dyspnea, nausea, vomiting, diarrhea, abdominal pain, hematuria,blurred vision, double vision, loss of vision, speech changes, LH, dizziness, syncope, headaches, wheezing, ST, URI, neck pain, weakness, bowel or bladder dysfunction, saddle anesthesia, numbness or tingling in bilateral upper or lower extremities equally, muscle paralysis, weakness in bilateral upper or lower extremities equally or rash. 12 point review of systems negative PHYSICAL EXAMINATION: GENERAL: Well-appearing, well-nourished and in no acute distress. HEAD: Atraumatic, normocephalic. EYES: Pupils equal round and reactive to light, extraocular movements intact, conjunctiva are normal. ENT: Nares patent, oropharynx clear without exudates. Moist mucous membranes. NECK: Normal range of motion, supple without lymphadenopathy LUNGS: Breath sounds clear to auscultation bilaterally and equal. No wheezes rales or rhonchi. HEART: Regular rate and rhythm without murmurs ABDOMEN: Soft, nontender, nondistended abdomen. No guarding, no rebound. No masses appreciated. Female : deferred Musculoskeletal: Normal range of motion, no pitting or edema. No cyanosis. Back pain NEUROLOGICAL: Cranial nerves grossly intact. Normal speech, normal gait. Normal sensory, motor exams PSYCH: Normal mood, normal affect. SKIN: Warm, Dry, normal turgor, no rashes or lesions noted. - REPRODUCTIVE Reproductive: DENIES: : Past Medical History - General Information source: Patient - Social History Smoking Status: Unknown if Ever Smoked Family History: Arthritis, CAD, DM, Hyperlipidemia, Hypertension, Malignancy, Other - Past Medical History Cardiac Medical History: Reports: Hx DVT - LLE, Hx Pulmonary Embolism Pulmonary Medical History: Reports: Hx Asthma Renal/ Medical History: Denies: Hx Peritoneal Dialysis Musculoskeletal Medical History: Reports Hx Arthritis - knees and back, Reports Hx Musculoskeletal Deformity, Reports Hx Musculoskeletal Trauma Psychiatric Medical History: Reports: Hx Bipolar Disorder, Hx Depression Past Surgical History: Reports: Hx Section - x 2, Hx Cholecystectomy, Hx Gynecologic Surgery - Endometrial ablation, Hx Hysterectomy, Hx Orthopedic Surgery - Left ACL cadaver graft, bilateral carpal tunnel,, Hx Tubal Ligation - Immunizations Hx Diphtheria, Pertussis, Tetanus Vaccination: Yes Hx Pneumococcal Vaccination: 09/27/13 Vertical Provider Document - CONSTITUTIONAL Agree With Documented VS: Yes - INFECTION CONTROL TRAVEL OUTSIDE OF THE [place] IN LAST 30 DAYS: No Course - Re-evaluation Re-evalutation: 09/28/18 17:44 48-year-old female eloped from hospital while waiting for CT pelvis, came back within 1 hour re-signed in, patient needs a CT pelvis for concern of a sacral fracture seen on sacral x-ray, lumbar spine CT was ordered with request to review sacrum for fracture to distal aspect of scarum, this as not performed by radiology scheduler. Discussed with radiology that she needs the distal aspect of her sacrum, s5 reviewed for fracture. CT pelvis negative for acute fracture, shows 27 mm right ovarian cyst, states this is likely benign. Patient needs to follow-up with ocean lifeguard specialist as well as SENIOR IT ENGINEER for ovarian cyst. CT shows the patient does not have a fracture. Will have syndrome with muscle relaxer and anti-inflammatory medications. Throughout duration of visit, his patient's vitals have remained stable, afebrile. EKG showed quick after performing a Medical Screening Examination, I estimate there is LOW risk for EXPANDING OR RUPTURED ABDOMINAL AORTIC ANEURYSM, CAUDA EQUINA SYNDROME, EPIDURAL MASS ABSCESS OR LESION(S), OSTEOMYELITIS,PERSONAL HISTORY OF CANCER, IMMUNOSUPPERSSSION, HISTORY OF IV DRUG USE, FRACTURE, CORD COMPERSSION, CANCER, RETROPERITONEAL BLEED, SPINAL EPIDURAL HEMATOMA, or HERNIATED DISK CAUSING SEVERE SPINAL STENOSIS, thus I consider the discharge disposition reasonable. I have reevaluated this patient multiple times and no significant life threatening changes are noted. The patient and I have discussed the diagnosis and risks, and we agree with discharging home and close follow-up. We also discussed returning to the Emergency Department immediately if new or worsening symptoms occur with the understanding that symptoms and presentations can change. We have discussed the symptoms which are most concerning (e.g., saddle anesthesia, urinary or bowel incontinence or retention, changing or worsening pain) that necessitate immediate return. Discharge - Discharge Clinical Impression: Lower back pain, Right ovarian cyst, Sacral pain Condition: Stable Disposition: HOME, SELF-CARE Instructions: Muscle Strain ([facility]), Low Back Pain ([facility]), Ice Packs ([facility]), Toradol Injection ([facility]) Additional Instructions: CT of pelvis shows that you have a right ovarian cyst, continue follow-up with SENIOR IT ENGINEER for this issue. CT lumbar spine was normal. The reason the CT pelvis was completed because there was a questionable sacral fracture on x-ray however CT pelvis shows that her sacrum does not have a fracture. Please do follow-up with ocean lifeguard specialist as well as primary care provider. You do have a primary care provider appointment in the next 2 days be sure to follow-up. Do not drive or drink alcohol while taking muscle relaxers this can cause impairment of cognitive function and sedation. Take [id number] ibuprofen and Tylenol as needed for pain, apply heat packs 20 minutes on treatment several times a day. Return immediately for any new or worsening symptoms. Follow up with primary care provider, call tomorrow to make followup appointment. Prescriptions: Ibuprofen [Ibu] 800 mg PO Q6HP PRN #20 tablet PRN Reason: Methocarbamol [Robaxin 500 mg Tablet] 500 mg PO QID PRN #15 tablet PRN Reason: Forms: Return to Work Referrals: PETRA LOPEZ MD [ACTIVE STAFF] - Follow up as needed LORENZO AMAYA MD [COMMUNITY BASED STAFF] - Follow up as needed CAREN MARTINEZ MD [ACTIVE PROVISIONAL STAFF] - Follow up as needed
[2018-09-28 18:15] VITALS: BP 127/64
--- NOTE | 2018-09-28 18:25 | RADIOLOGY REPORT (SQ) ---
EXAM DESCRIPTION: CT PELVIS WITHOUT COMPLETED DATE/TIME: 09/28/2018 5:54 pm REASON FOR STUDY: sacral fracture COMPARISON: None. TECHNIQUE: CT scan of the pelvis performed without intravenous or oral contrast. Images reviewed wi th soft tissue and bone windows. Reconstructed coronal and sagittal MPR images reviewed. All images stored on PACS. All CT scanners at this facility use dose modulation, iterative reconstruction, and/or weight based d osing when appropriate to reduce radiation dose to as low as reasonably achievable (ALARA). [facility]: Dose Right [facility]: CareDose [facility]: Dose Right [facility]: Teradose 4D [facility]: [employer] RADIATION DOSE: CT Rad equipment meets quality standard of care and radiation dose reduction techniq ues were employed. CTDIvol: 21.1 mGy. DLP: 710 mGy-cm. mGy. LIMITATIONS: None. FINDINGS: PELVIC BONES: No acute fracture. No worrisome bone lesions. There does not appear on thes e images to be a fracture of the last sacral segment. There is no presacral hematoma. VISUALIZED SPINE: No acute findings. HIP(S): No acute fracture or dislocation. No worrisome bone lesions. PELVIC SOFT TISSUES: 27 mm right ovarian cyst. EXTRAPELVIC SOFT TISSUES: No significant findings. OTHER: No other significant finding. IMPRESSION: No fracture is present. 27 mm right ovarian cyst, almost certainly benign. No addition al imaging is required for this. TECHNICAL DOCUMENTATION: JOB ID: [id number] Quality ID # [id number]: Final reports with documentation of one or more dose reduction techniques (e.g., Au tomated exposure control, adjustment of the mA and/or kV according to patient size, use of iterative reconstruction technique) 2010 [employer]- All Rights Reserved Reading location - IP/workstation name: [email or web address]
== END 2018-09-28 18:59 | disposition home or self-care (01) ==
LOC: ER 17:26
DX: M54.5 Low back pain (principal); M53.3 Sacrococcygeal disorders, not elsewhere classified; N83.201 Unspecified ovarian cyst, right side; J45.909 Unspecified asthma, uncomplicated
CPT/HCPCS: 72192; 99283

== ENCOUNTER 2019-08-07 12:44 | Observation (INO) | payer SELFPAY ==
--- NOTE | 2019-08-07 13:14 | ER Document Report ---
ED Medical Screen (RME) - General Chief Complaint: Breathing Difficulty Stated Complaint: TROUBLE BREATHING/DIZZINESS Time Seen by Provider: 08/07/19 13:04 Primary Care Provider: EVELIO SINGH MD [Primary Care Provider] - Follow up as needed Mode of Arrival: Wheelchair Information source: Patient Notes: 48-year-old female patient with history of pulmonary embolisms presents to the emergency department with 3-day history of shortness of breath, difficulty breathing and now chest pain. Patient states the shortness of breath is worse when lying down. She also reports edema to her bilateral lower extremities. She is speaking in short and choppy sentences in triage. She denies any history of CHF. Patient reports she takes Xarelto. Lung sounds clear, increased work of breathing. I have greeted and performed a rapid initial assessment of this patient. A comprehensive ED assessment and evaluation of the patient, analysis of test results and completion of the medical decision making process will be conducted by additional ED providers. I have specifically instructed the patient or family members with the patient to immediately return to any nursing staff should anything change in the patient's condition or with their chief complaint. TRAVEL OUTSIDE OF THE [place] IN LAST 30 DAYS: No - Related Data Allergies/Adverse Reactions: codeine [Codeine] Allergy (Verified 09/28/18 17:27) rash, headache Penicillins Allergy (Verified 09/28/18 17:27) itching rash hydromorphone HCl [From Dilaudid] Adverse Reaction (Verified 09/28/18 17:27) morphine [Morphine] Adverse Reaction (Verified 09/28/18 17:27) Past Medical History - Past Medical History Cardiac Medical History: Reports: Hx DVT - LLE, Hx Pulmonary Embolism Pulmonary Medical History: Reports: Hx Asthma Renal/ Medical History: Denies: Hx Peritoneal Dialysis Musculoskeltal Medical History: Reports Hx Arthritis - knees and back, Reports Hx Musculoskeletal Deformity, Reports Hx Musculoskeletal Trauma Psychiatric Medical History: Reports: Hx Bipolar Disorder, Hx Depression Past Surgical History: Reports: Hx Section - x 2, Hx Cholecystectomy, Hx Gynecologic Surgery - Endometrial ablation, Hx Hysterectomy, Hx Orthopedic Surgery - Left ACL cadaver graft, bilateral carpal tunnel,, Hx Tubal Ligation - Immunizations Hx Diphtheria, Pertussis, Tetanus Vaccination: Yes Physical Exam - Vital signs Vitals: Temp Pulse Resp BP Pulse Ox 98.1 F 96 20 130/78 H 97 06/01/20 12:59 08/07/19 12:59 08/07/19 12:59 08/07/19 12:59 08/07/19 12:59 Course - Vital Signs Vital signs: Temp Pulse Resp BP Pulse Ox 98.1 F 96 20 130/78 H 97 08/07/19 12:59 08/07/19 12:59 08/07/19 12:59 08/07/19 12:59 08/07/19 12:59 Doctor's Discharge - Discharge Referrals: EVELIO SINGH MD [Primary Care Provider] - Follow up as needed
--- NOTE | 2019-08-07 13:21 | ER Document Report ---
ED General - General Chief Complaint: Chest Pain Stated Complaint: TROUBLE BREATHING/DIZZINESS Time Seen by Provider: 08/07/19 13:04 Mode of Arrival: Wheelchair Notes: 48-year-old obese lady with a history of multiple PEs on lifetime Eliquis patient of Dr. Sonido dahl presents with worsening shortness of breath for about 3 days, gradual onset worse when lying flat without chest pain. No hemoptysis. Slight worsening in leg swelling. She says "I have permanent lung damage because of the blood clots" but denies a known history of pulmonary hypertension. No COVID contacts, no cough no fever. TRAVEL OUTSIDE OF THE [place] IN LAST 30 DAYS: No - Related Data Allergies/Adverse Reactions: codeine [Codeine] Allergy (Verified 09/28/18 17:27) rash, headache Penicillins Allergy (Verified 09/28/18 17:27) itching rash hydromorphone HCl [From Dilaudid] Adverse Reaction (Verified 09/28/18 17:27) morphine [Morphine] Adverse Reaction (Verified 09/28/18 17:27) Past Medical History - General Information source: Patient - Social History Smoking Status: Never Smoker Family History: Arthritis, CAD, DM, Hyperlipidemia, Hypertension, Malignancy, Other Patient has homicidal ideation: No - Past Medical History Cardiac Medical History: Reports: Hx DVT - LLE, Hx Pulmonary Embolism Pulmonary Medical History: Reports: Hx Asthma Renal/ Medical History: Denies: Hx Peritoneal Dialysis Musculoskeletal Medical History: Reports Hx Arthritis - knees and back, Reports Hx Musculoskeletal Deformity, Reports Hx Musculoskeletal Trauma Psychiatric Medical History: Reports: Hx Bipolar Disorder, Hx Depression Past Surgical History: Reports: Hx Section - x 2, Hx Cholecystectomy, Hx Gynecologic Surgery - Endometrial ablation, Hx Hysterectomy, Hx Orthopedic Surgery - Left ACL cadaver graft, bilateral carpal tunnel,, Hx Tubal Ligation - Immunizations Hx Diphtheria, Pertussis, Tetanus Vaccination: Yes Hx Pneumococcal Vaccination: 09/27/13 Review of Systems - Review of Systems Notes: REVIEW OF SYSTEMS GEN: Denies fever, chills, weight loss ENT: Denies sore throat, nasal discharge, ear pain EYES: Denies blurry vision, eye pain, discharg Pulmonary: Short of breath orthopneic, denies cough, s wheezing GI: Denies abdominal pain, nausea, vomiting, diarrhea MSK: No leg swelling SKIN: Denies rash, skin lesions LYMPH: Denies swollen glands/lymph nodes NEURO: Denies headache, focal weakness or numbness, dizziness PSYCH: Denies depression, suicidal or homicidal ideation PHYSICAL EXAMINATION General: Obese mild distress sitting upright Head: Atraumatic, normocephalic ENT: Mouth normal, oropharynx moist, no exudates or tonsillar enlargement Eyes: Conjunctiva normal, pupils equal, lids normal Neck: No JVD, supple, no guarding CVS: Normal rate, regular rhythm, no murmurs Resp: Tachypneic with decreased sounds at bases but no wheezing GI: Nondistended, soft, no tenderness to palpation, no rebound or guarding Ext: Legs with possible trace edema Back: No CVA or midline TTP Skin: No rash, warm Lymphatic: No lymphadeopathy noted Neuro: Awake, alert. Face symmetric. GCS 15. Physical Exam - Vital signs Vitals: Temp Pulse Resp BP Pulse Ox 98.1 F 96 20 130/78 H 97 08/07/19 12:59 08/07/19 12:59 08/07/19 12:59 08/07/19 12:59 08/07/19 12:59 Course - Re-evaluation Re-evalutation: 08/07/19 13:20 Patient presents with respiratory stress requiring nasal cannula in the setting of chronic PEs Likely heart failure responded hypertension. No clinical signs of massive PE at this point. BNP labs chest x-ray EKG 08/07/19 18:17 EKG unchanged chest x-ray unremarkable, labs are normal. Patient remains reasonably dyspneic including with long sentences and minor movement. I think she needs to be admitted for an echo to rule out pulmonary hypertension. Discussed with Francisco Head hospitalist C[employer]ION COVER INSPECTOR will admit. - Vital Signs Vital signs: Temp Pulse Resp BP Pulse Ox 97.9 F 102 H 24 H 129/77 H 98 08/07/19 18:00 08/07/19 18:00 08/07/19 18:00 08/07/19 18:00 08/07/19 18:00 - Laboratory Result Diagrams: 08/07/19 14:14 08/07/19 14:14 Laboratory results interpreted by me: 08/07/19 08/07/19 14:14 14:14 WBC 13.7 H RDW 15.1 H Absolute Neuts (auto) 9.5 H Sodium 135.6 L - Diagnostic Test Radiology reviewed: Image reviewed, Reports reviewed - EKG Interpretation by Me EKG shows normal: Sinus rhythm Rate: Normal Rhythm: NSR - T2 of changes normal intervals When compared to previous EKG there are: Previous EKG unavailable Discharge - Discharge Clinical Impression: Dyspnea Qualifiers: Dyspnea type: unspecified Qualified Code(s): R06.00 - Dyspnea, unspecified Condition: Good Disposition: ADMITTED OBSERVATION Admitting Provider: Whitley (Hospitalist) Unit Admitted: Telemetry
--- NOTE | 2019-08-07 13:30 | RADIOLOGY REPORT (SQ) ---
EXAM DESCRIPTION: CHEST SINGLE VIEW IMAGES COMPLETED DATE/TIME: 08/07/2019 1:21 pm REASON FOR STUDY: chest pain/sob, hx of PE COMPARISON: PA and lateral views of the chest from 05/30/2018. EXAM PARAMETERS: NUMBER OF VIEWS: One view. TECHNIQUE: An AP view of the chest was obtained. RADIATION DOSE: NA LIMITATIONS: None. FINDINGS: LUNGS AND PLEURA: No consolidation, pleural effusion or pneumothorax. MEDIASTINUM AND HILAR STRUCTURES: No mediastinal or hilar contour abnormality. HEART AND VASCULAR STRUCTURES: The cardiac silhouette and pulmonary vasculature are within normal pérez its. BONES: No acute findings. HARDWARE: None in the chest. OTHER: No other finding. IMPRESSION: No acute cardiopulmonary process. TECHNICAL DOCUMENTATION: JOB ID: [id number] 2010 [employer]- All Rights Reserved Reading location - IP/workstation name: [email or web address]
[2019-08-07 14:28] LABS: ABSOLUTE EOSINOPHILS # (AUTO) 0.3 10^3/uL (0.0-0.6); ABSOLUTE LYMPHOCYTES (AUTO) 3.3 10^3/uL (0.5-4.7); ABSOLUTE MONOCYTES (AUTO) 0.6 10^3/uL (0.1-1.4); ABSOLUTE NEUT (AUTO) 9.5 10^3/uL (1.7-8.2); BASOPHILS % (AUTO) 0.2 % (0-2); EOSINOPHILS % (AUTO) 1.8 % (0-6); HEMOGLOBIN 12.8 g/dL (12.0-15.5); LYMPHOCYTES % (AUTO) 24.3 % (13-45); MEAN CORPUSCULAR HEMOGLOBIN 27.3 pg (27.0-33.4); MEAN CORPUSCULAR HGB CONC 33.8 g/dL (32.0-36.0); MEAN CORPUSCULAR VOLUME 81 fl (80-97); MONOCYTES % (AUTO) 4.1 % (3-13); PLATELET COUNT 435 10^3/uL (150-450); RED BLOOD COUNT 4.71 10^6/uL (3.72-5.28); RED CELL DISTRIBUTION WIDTH 15.1 % (11.5-14.0); SEGMENTED NEUTROPHILS % (AUTO) 69.6 % (42-78); TOTAL CELLS COUNTED % (AUTO) 100 %; WHITE BLOOD COUNT 13.7 10^3/uL (4.0-10.5)
[2019-08-07 14:34] LABS: INTERNATIONAL RATION (INR) 0.97; PARTIAL THROMBOPLASTIN TIME 27.6 SEC (23.5-35.8); PROTHROMBIN TIME 12.9 SEC (11.4-15.4)
[2019-08-07 14:49] LABS: ALBUMIN 3.9 g/dL (3.5-5.0); ALKALINE PHOSPHATASE 78 U/L (38-126); ANION GAP 7 (5-19); ASPARTATE AMINO TRANSFERASE 20 U/L (14-36); BILIRUBIN,TOTAL 0.4 mg/dL (0.2-1.3); BLOOD UREA NITROGEN 12 mg/dL (7-20); CALCIUM 9.7 mg/dL (8.4-10.2); CARBON DIOXIDE 29 mmol/L (22-30); CHLORIDE 100 mmol/L (98-107); GLUCOSE 100 mg/dL (75-110); TOTAL PROTEIN 6.9 g/dL (6.3-8.2)
[2019-08-07 15:01] LABS: NT PRO BNP 42 pg/mL (<125)
[2019-08-07 15:05] LABS: TROPONIN I < 0.012 ng/mL
[2019-08-07] MEDS ORDERED: IPRATROPIUM/ALBUTEROL 0.5-2.5 MG/3 ML AMPUL NEB PRN (16:31)
[2019-08-07] MEDS ORDERED: ONDANSETRON 4 MG TAB.RAPDIS PO PRN (16:31)
[2019-08-07] MEDS ORDERED: ONDANSETRON HCL INJ/PF 4 MG/2 ML SDV IV PRN (16:31)
[2019-08-07] MEDS ORDERED: ACETAMINOPHEN 325 MG TABLET PO PRN (16:31)
--- NOTE | 2019-08-07 17:04 | PDOC H&P ---
History of Present Illness Admission Date/PCP: [facility] History of Present Illness: LISET HILL is a 48 year old female comes in stating that for the last 3 days she has been more short of breath than usual. She states she went over to her friend's house about a pulse oximeter and she checked her oxygen saturation and it was 91%. States her normal oxygen saturations 97% on room air. The reason she knows this is because once a month she sees her psychiatrist and on her vital signs they check her oxygen. She has a history of a pulmonary embolism as well as multiple DVTs. First DVT was 21 years ago in the right leg and then 9 years ago she had another DVT in her right leg and then 8 years ago she had several PEs in her chest. Patient has been on Xarelto now for at least [address] Elizalde the digital community manager for this. Patient also states she has had more edema in her legs the last few days. Patient also has a past history of PTSD and depression as well as anxiety Comes in now for an echocardiogram and cardiac consult. BNP is 42 and initial troponin is normal. CXR shows no acute cardiopulmonary disease. Medically stable to move to the floor Past Medical History Cardiac Medical History: Reports: DVT - LLE, Hypertension, Pulmonary Embolism Pulmonary Medical History: Reports: Asthma Musculoskeltal Medical History: Reports: Arthritis - knees and back Psychiatric Medical History: Reports: Bipolar Disorder, Depression, Post Traumatic Stress Disorder, Other - Anxiety Hematology: Reports: Anemia, Bleeding Tendencies Past Surgical History Past Surgical History: Reports: Section - x 2, Cholecystectomy, Hysterectomy, Orthopedic Surgery - Left ACL cadaver graft, bilateral carpal tunnel,, Tubal Ligation Social History Smoking Status: Never Smoker Frequency of Alcohol Use: None Hx Recreational Drug Use: No Hx Prescription Drug Abuse: No - Advance Directive Resuscitation Status: Full Code Family History Family History: Arthritis, CAD, DM, Hyperlipidemia, Hypertension, Malignancy, Other Parental Family History Reviewed: No Children Family History Reviewed: No Sibling(s) Family History Reviewed.: No Medication/Allergy Home Medications: Rivaroxaban [Xarelto 10 mg Tablet] 20 mg PO WSUPPER #0 tablet 09/27/13 Docusate Sodium [Stool Softener] 100 mg PO DAILY 11/23/13 Multivitamin [Daily Vitamin] 1 tab PO DAILY 11/23/13 Hydrocodone Bit/Acetaminophen [Hydrocodon-Acetaminophen 5-325] 1 tab PO Q8 PRN 12/19/13 Medroxyprogesterone Acetate [Provera] 2 tab PO TID 12/19/13 Nitrofurantoin/Nitrofuran Mac [Macrobid 100 mg Capsule] 1 tab PO BID #20 capsule 01/04/14 Oxycodone HCl/Acetaminophen [Percocet 5-325 mg Tablet] 1 - 2 tab PO Q4H PRN #25 tablet 01/04/14 Oxycodone HCl/Acetaminophen [Oxycodone-Acetaminophen 5-325] 1 - 2 each PO ASDIR #10 tablet 04/04/14 Carisoprodol [Soma 350 Mg Tablet] 350 mg PO DAILY #14 tablet 10/01/14 Oxycodone HCl/Acetaminophen [Percocet 5-325 mg Tablet] 1 - 2 tab PO Q4H PRN #20 tablet 10/01/14 Lisinopril/Hydrochlorothiazide [Lisinopril-Hctz 10-12.5 mg Tab] 1 each PO DAILY #30 tablet 01/03/15 Oxycodone HCl/Acetaminophen [Percocet 5-325 mg Tablet] 1 - 2 tab PO ASDIR PRN #15 tablet 01/03/15 Albuterol Sulfate [Proair HFA Inhalation Aerosol 8.5 gm MDI] 2 puff IH Q4H PRN #1 mdi 06/06/16 Azithromycin [Zithromax 250 mg Tablet] 250 mg PO ASDIR PRN #6 tablet 06/06/16 Prednisone [Deltasone 20 mg Tablet] 3 tab PO DAILY 4 Days tablet 06/06/16 Meloxicam [Mobic 7.5 Mg Tablet] 7.5 mg PO BID #14 tablet 09/20/16 Methylprednisolone [Medrol Dosepack (4 mg/Tab) 21 Tab/Dosepak] 4 mg PO ASDIR PRN #21 tab.ds.pk 09/20/16 Diazepam [Valium 5 mg Tablet] 5 mg PO QIDP PRN #15 tablet 01/18/17 Hydrocodone/Acetaminophen [[place]view 5-325 mg Tablet] 1 tab PO ASDIR PRN #15 tablet 03/13/17 Prednisone [Deltasone 10 mg Tablet] 10 mg PO ASDIR PRN #21 tablet 03/13/17 Dicyclomine HCl [Bentyl 20 mg Tablet] 20 mg PO QID #15 tablet 04/13/17 Metoclopramide HCl [Reglan 10 mg Tablet] 1 tab PO ASDIR PRN #25 tablet 04/13/17 Cetirizine HCl [All Day Allergy] 10 mg PO DAILY #30 tablet 05/06/17 Sulfamethoxazole/Trimethoprim [Bactrim Ds Tablet] 1 each PO BID #20 tablet 05/06/17 Clindamycin HCl [Cleocin Hcl] 300 mg PO QID #28 capsule 12/22/17 Docosanol [Abreva] 1 applic TP ASDIR PRN #2 cream.gm 12/22/17 Azithromycin [Zithromax 250 mg Tablet] 250 mg PO ASDIR PRN #6 tablet 05/30/18 Prednisone [Deltasone 20 mg Tablet] 3 tab PO DAILY 5 Days #15 tablet 05/30/18 Diclofenac Sodium [Voltaren] 4 gm TP QID PRN #100 gel..gm. 07/15/18 Ibuprofen [Ibu] 800 mg PO Q6HP PRN #20 tablet 09/28/18 Methocarbamol [Robaxin 500 mg Tablet] 500 mg PO QID PRN #15 tablet 09/28/18 Allergies/Adverse Reactions: codeine [Codeine] Allergy (Verified 09/28/18 17:27) rash, headache Penicillins Allergy (Verified 09/28/18 17:27) itching rash hydromorphone HCl [From Dilaudid] Adverse Reaction (Verified 09/28/18 17:27) morphine [Morphine] Adverse Reaction (Verified 09/28/18 17:27) Review of Systems Constitutional: PRESENT: as per HPI Cardiovascular: PRESENT: chest pain, dyspnea on exertion Respiratory: PRESENT: dyspnea Neurological: ABSENT: abnormal gait, abnormal speech, confusion, dizziness, focal weakness, syncope Psychiatric: PRESENT: anxiety, depression. ABSENT: homidical ideation, suicidal ideation Physical Exam Vital Signs: Temp Pulse Resp BP Pulse Ox 98.1 F 96 20 112/70 98 08/07/19 13:05 08/07/19 12:59 08/07/19 12:59 08/07/19 15:17 08/07/19 15:17 Intake & Output 08/06/19 08/07/19 08/08/19 06:59 06:59 06:59 Weight 145.15 kg General appearance: PRESENT: no acute distress, mild distress Respiratory exam: PRESENT: clear to auscultation alexsander. ABSENT: rales, rhonchi, wheezes Cardiovascular exam: PRESENT: RRR. ABSENT: diastolic murmur, rubs, systolic mu rmur Extremities exam: PRESENT: +1 edema Neurological exam: PRESENT: alert, awake, oriented to person, oriented to place, oriented to time, oriented to situation, CN II-XII grossly intact. ABSENT: motor sensory deficit Psychiatric exam: PRESENT: other - Tearful Results Laboratory Results: 08/07/19 14:14 08/07/19 14:14 08/07/19 08/07/19 14:14 14:14 WBC 13.7 H RBC 4.71 Hgb 12.8 Hct 38.0 MCV 81 MCH 27.3 MCHC 33.8 RDW 15.1 H Plt Count 435 Seg Neutrophils % 69.6 Sodium 135.6 L Potassium 4.0 Chloride 100 Carbon Dioxide 29 Anion Gap 7 BUN 12 Creatinine 0.61 Est GFR ( Amer) > 60 Glucose 100 Calcium 9.7 Total Bilirubin 0.4 AST 20 Alkaline Phosphatase 78 Total Protein 6.9 Albumin 3.9 08/07/19 14:14 Troponin I < 0.012 NT-Pro-B Natriuret Pep 42 Impressions: Chest X-Ray 08/07/19 13:08 IMPRESSION: No acute cardiopulmonary process. Assessment and Plan - Diagnosis (1) History of deep vein thrombosis Is this a current diagnosis for this admission?: Yes (2) Morbid obesity Is this a current diagnosis for this admission?: Yes (3) PTSD (post-traumatic stress disorder) Is this a current diagnosis for this admission?: Yes (4) Depression Is this a current diagnosis for this admission?: Yes (5) Dyspnea Qualifiers: Dyspnea type: unspecified Qualified Code(s): R06.00 - Dyspnea, unspecified Is this a current diagnosis for this admission?: Yes (6) Admission for long-term (current) use of anticoagulants Is this a current diagnosis for this admission?: Yes (7) Pulmonary emboli Is this a current diagnosis for this admission?: Yes - Plan Summary Summary: Patient states that normally when walking around her small apartment she has no shortness of breath but for the last 3 to 4 days just walking from one room to the other she gets short of breath. States she has not missed any of her doses of Xarelto. Also states she is noticed a little more edema in her feet and lower legs. I offered patient a choice of going home and having a work-up done as an outpatient but she said she would rather come in overnight and have her studies done. Unfortunately she has no insurance no Medicaid to Medicare. With her BNP being so low I am not ordering any diuretics. I will order some nebulizer treatments as needed. We will resume her home medications. I am going to get an echocardiogram done tomorrow morning and consult cardiology. Patient appears to be medically stable. - Time Time Spent with patient: 35 or more minutes
[2019-08-07] MEDS: DOCUSATE SODIUM 100 MG CAPSULE PO SCH (18:38)
[2019-08-07 19:10] LABS: APPEARANCE,URINE SLIGHTLY-CLOUDY; BILIRUBIN,URINE NEGATIVE (NEGATIVE); COLOR,URINE YELLOW; GLUCOSE, URINE NEGATIVE (NEGATIVE); KETONES,URINE NEGATIVE (NEGATIVE); PROTEIN,URINE NEGATIVE (NEGATIVE); URINE SPECIFIC GRAVITY 1.017; UROBILINOGEN,URINE NEGATIVE mg/dL (<2.0)
[2019-08-07 20:33] LABS: CREATINE KINASE MB 1.76 ng/mL (<4.55)
[2019-08-07 20:34] LABS: TROPONIN I < 0.012 ng/mL
[2019-08-07] MEDS: FAMOTIDINE 20 MG TABLET PO SCH (21:16)
[2019-08-07] MEDS ORDERED: RIVAROXABAN 10 MG TABLET PO SCH (22:00)
--- NOTE | 2019-08-07 22:38 | EKG REPORT ---
SEVERITY:- BORDERLINE ECG - SINUS RHYTHM PROBABLE LEFT ATRIAL ABNORMALITY : Confirmed by: Devan Leonardo 07-Aug-2019 22:37:33
[2019-08-08 02:37] LABS: CREATINE KINASE MB 1.96 ng/mL (<4.55)
[2019-08-08 02:43] LABS: TROPONIN I < 0.012 ng/mL
[2019-08-08 07:58] LABS: ABSOLUTE BASOPHILS # (AUTO) 0.1 10^3/uL (0.0-0.2); ABSOLUTE EOSINOPHILS # (AUTO) 0.2 10^3/uL (0.0-0.6); ABSOLUTE LYMPHOCYTES (AUTO) 2.9 10^3/uL (0.5-4.7); ABSOLUTE MONOCYTES (AUTO) 0.4 10^3/uL (0.1-1.4); ABSOLUTE NEUT (AUTO) 7.3 10^3/uL (1.7-8.2); BASOPHILS % (AUTO) 1.1 % (0-2); HEMOGLOBIN 13.1 g/dL (12.0-15.5); LYMPHOCYTES % (AUTO) 26.3 % (13-45); MEAN CORPUSCULAR HEMOGLOBIN 27.3 pg (27.0-33.4); MEAN CORPUSCULAR HGB CONC 33.6 g/dL (32.0-36.0); MEAN CORPUSCULAR VOLUME 81 fl (80-97); MONOCYTES % (AUTO) 3.7 % (3-13); PLATELET COUNT 406 10^3/uL (150-450); RED BLOOD COUNT 4.79 10^6/uL (3.72-5.28); RED CELL DISTRIBUTION WIDTH 14.8 % (11.5-14.0); SEGMENTED NEUTROPHILS % (AUTO) 66.9 % (42-78); TOTAL CELLS COUNTED % (AUTO) 100 %
--- NOTE | 2019-08-08 08:10 | XCELERA REPORT ---
[address] [address] Transthoracic Echocardiogram Report Name: LISET HILL Age: 48 yrs Gender: Female : 1970 Patient Status: Inpatient Patient Location: [address] [place] [address] Study Date: 08/07/2019 08:21 PM Height: 64 in Weight: 320 lb BSA: 2.4 m2 Procedure: A complete two-dimensional transthoracic echocardiogram was performed (2D, M-mode, spectral and color flow Doppler). The study was technically limited with all images being suboptimal in quality. There was technical limitations during this study due to patients body habitas. Limitations due to lung artifact, patient had difficulty tolerating exam and was breathing heavily. Images from the parasternal window were difficult to obtain and are suboptimal in quality. The suprasternal notch views were difficult to obtain and are suboptimal in quality. Reason For Study: SOB, please do early per Dr. Wiley Ordering Physician: CARLY DONNELLY Performed By: Bri Garcia Interpretation Summary Technically difficult study due to the patient's body habitus. Valvular structures not well visualized. The left ventricle is grossly normal size. Grossly normal systolic function. Doppler measurements suggest impaired left ventricular relaxation, which is associated with grade I/IV or mild diastolic dysfunction. Regional wall motion abnormalities cannot be excluded due to limited visualization. Trace MR. No prior studies for comparison. MMode/2D Measurements & Calculations RVDd: 3.6 cm LVIDd: 5.3 cm FS: 32.7 % Ao root diam: 2.8 cm IVSd: 1.2 cm LVIDs: 3.6 cm EDV(Teich): Ao root area: 136.4 ml LVPWd: 0.98 cm 6.1 cm2 ESV(Teich): 53.7 mlLA dimension: 3.6 cm EF(Teich): 60.6 % LVLd ap4: 7.2 cm SV(MOD-sp4): EDV(MOD-sp4): 19.0 ml 33.0 ml LVLs ap4: 4.8 cm ESV(MOD-sp4): 14.0 ml EF(MOD-sp4): 57.6 % Doppler Measurements & Calculations MV E max reyes: MV P1/2t max reyes: Ao V2 max: LV V1 max P.9 cm/sec 93.0 cm/sec 159.0 cm/sec 6.6 mmHg MV A max reyes: MV P1/2t: 73.2 msec Ao max PG: LV V1 max: 96.3 cm/sec 10.1 mmHg 128.3 cm/sec MVA(P1/2t): 3.0 cm2 MV E/A: 0.87 MV dec slope: 371.9 cm/sec2 MV dec time: 0.17 sec PA V2 max: MV P1/2t-pr_phl: 96.7 cm/sec 73.2 msec PA max P.7 mmHg Left Ventricle The left ventricle is grossly normal size. Grossly normal systolic function. Doppler measurements suggest impaired left ventricular relaxation, which is associated with grade I/IV or mild diastolic dysfunction. Regional wall motion abnormalities cannot be excluded due to limited visualization. Right Ventricle The right ventricle is normal in size, thickness and function. The right ventricular systolic function is normal. Atria The right atrium is normal. The left atrial size is normal. Interarterial septum not well visualized and not well dopplered. Cannot comment on ASD/PFO presence. Mitral Valve There is mild mitral leaflet calcification. There is no evidence of mitral valve prolapse. There is no mitral valve stenosis. There is a trace amount of mitral regurgitation. Aortic Valve The aortic valve is not well visualized secondary to technical limitations. There is no aortic valve stenosis. No aortic regurgitation is present. Tricuspid Valve The tricuspid valve is not well visualized secondary to technical limitations. There is no tricuspid stenosis. Pulmonic Valve The pulmonic valve is not well visualized. Effusions There is no pericardial effusion. There is no pleural effusion. : CARLY DONNELLY Antonio
[2019-08-08 08:18] LABS: ANION GAP 11 (5-19); BLOOD UREA NITROGEN 14 mg/dL (7-20); CALCIUM 9.3 mg/dL (8.4-10.2); CARBON DIOXIDE 22 mmol/L (22-30); CHLORIDE 103 mmol/L (98-107); GLUCOSE 132 mg/dL (75-110)
[2019-08-08 08:29] LABS: CREATINE KINASE MB 1.95 ng/mL (<4.55); NT PRO BNP 26 pg/mL (<125)
--- NOTE | 2019-08-08 08:38 | PDOC CONSULTATION ---
Consultation Consult Date: 08/08/19 Attending physician:: CARLY DONNELLY JR Provider Consulted: SONIA HANCOCK Consult reason:: Dyspnea History of Present Illness Admission Date/PCP: 08/07/19 16:37 [facility] History of Present Illness: LISET HILL is a 48 year old female with history of recurrent DVTs, multiple PEs in the past, PTSD, anxiety, ex-smoker who quit tobacco in 2011, without family history of premature coronary artery disease who is consulted to our service for further evaluation of dyspnea. The patient states that her baseline dyspnea started to get worse in 2019 and has progressively worsened until approximately 3 days prior to admission when she noticed that her pulse ox at home was down to 91% and she was able only to walk 20 feet before stopping to catch her breath. Her dyspnea is worse and she had been sleeping on 6 pillows however this has been present for many years now and has not changed. She denies chest pain as well as other anginal equivalents, she also denied palpitations, diaphoresis, syncope and presyncope. This morning she is found sitting in bed in no acute distress. She feels slightly better. Physical exam on 08/08/2019: GENERAL: Morbidly obese. Pleasant and conversational. Oriented x3 with normal mood. Not in acute distress. Well groomed and well developed. HEENT: Normocephalic, atraumatic. Pupils equal. Sclerae anicteric. Oropharynx moist. NECK: No JVD. No carotid bruits. LUNGS: Clear to auscultation bilaterally. Normal respiratory effort without the use of accessory muscles or intercostal retractions. CARDIOVASCULAR: Regular rate and rhythm, normal S1 and S2 without murmurs, rubs, or gallops. PMI not displaced. EXTREMITIES: No edema, no cyanosis, no clubbing. +2 pulses femoral and pedal pulses bilaterally. SKIN: No lesions or rashes. MUSCULOSKELETAL: No chest tenderness to palpation. NEUROLOGIC: Nonfocal. No gross sensory or motor deficits bilateral upper or lower extremities. Cardiac studies: Echocardiogram on 08/07/2019: -Technically difficult study given the patient's body habitus. -LV systolic function is grossly normal. -There is an anterior fat pad. -Right ventricle appears of normal size and function. -Grade 1 diastolic dysfunction. -Cannot assess for wall motion abnormalities. -Valvular structures were not well visualized. -Mild MR. -No TR was found to estimate pulmonary pressures however interrogation of the valve was unreliable. Past Medical History Cardiac Medical History: Reports: DVT - LLE, Hypertension, Pulmonary Embolism Pulmonary Medical History: Reports: Asthma Musculoskeltal Medical History: Reports: Arthritis - knees and back Psychiatric Medical History: Reports: Bipolar Disorder, Depression, Post Traum atic Stress Disorder, Other - Anxiety Hematology: Reports: Anemia, Bleeding Tendencies Past Surgical History Past Surgical History: Reports: Section - x 2, Cholecystectomy, Hysterectomy, Orthopedic Surgery - Left ACL cadaver graft, bilateral carpal tunnel,, Tubal Ligation Social History Smoking Status: Former Smoker Frequency of Alcohol Use: None Hx Recreational Drug Use: No Hx Prescription Drug Abuse: No - Advance Directive Resuscitation Status: Full Code Family History Family History: Arthritis, CAD, DM, Hyperlipidemia, Hypertension, Malignancy, Other Parental Family History Reviewed: Yes Children Family History Reviewed: Yes Sibling(s) Family History Reviewed.: Yes Medication/Allergy Home Medications: Lisinopril/Hydrochlorothiazide [Lisinopril-Hctz 10-12.5 mg Tab] 1 each PO DAILY #30 tablet 01/03/15 Fluoxetine HCl [Prozac 20 mg Capsule] 20 mg PO DAILY 08/07/19 [place] Carbonate [Lithobid 300 mg Capsule] 300 mg PO Q12 08/07/19 Rivaroxaban [Xarelto 10 mg Tablet] 10 mg PO DAILY 08/07/19 Allergies/Adverse Reactions: codeine [Codeine] Allergy (Verified 09/28/18 17:27) rash, headache Penicillins Allergy (Verified 09/28/18 17:27) itching rash hydromorphone HCl [From Dilaudid] Adverse Reaction (Verified 09/28/18 17:27) morphine [Morphine] Adverse Reaction (Verified 09/28/18 17:27) Physical Exam Vital Signs: Temp Pulse Resp BP Pulse Ox 97.8 F 80 20 127/59 H 98 08/08/19 07:17 08/08/19 07:17 08/08/19 07:17 08/08/19 07:17 08/08/19 07:17 Intake & Output 08/07/19 08/08/19 08/09/19 06:59 06:59 06:59 Weight 145.2 kg Results Laboratory Results: 08/08/19 07:22 08/07/19 08/07/19 08/07/19 14:14 14:14 14:14 WBC 13.7 H RBC 4.71 Hgb 12.8 Hct 38.0 MCV 81 MCH 27.3 MCHC 33.8 RDW 15.1 H Plt Count 435 Seg Neutrophils % 69.6 Sodium 135.6 L Potassium 4.0 Chloride 100 Carbon Dioxide 29 Anion Gap 7 BUN 12 Creatinine 0.61 Est GFR ( Amer) > 60 Glucose 100 Calcium 9.7 Total Bilirubin 0.4 AST 20 Alkaline Phosphatase 78 Total Protein 6.9 Albumin 3.9 TSH 3.15 Urine Color Urine Appearance Urine pH Ur Specific [place] Urine Protein Urine Glucose (UA) Urine Ketones Urine Blood Urine RBC (Auto) 08/07/19 08/08/19 18:57 07:22 WBC 11.0 H RBC 4.79 Hgb 13.1 Hct 39.0 MCV 81 MCH 27.3 MCHC 33.6 RDW 14.8 H Plt Count 406 Seg Neutrophils % 66.9 Sodium Potassium Chloride Carbon Dioxide Anion Gap BUN Creatinine Est GFR ( Amer) Glucose Calcium Total Bilirubin AST Alkaline Phosphatase Total Protein Albumin TSH Urine Color YELLOW Urine Appearance SLIGHTLY-CLOUDY Urine pH 7.0 Ur Specific [place] 1.017 Urine Protein NEGATIVE Urine Glucose (UA) NEGATIVE Urine Ketones NEGATIVE Urine Blood NEGATIVE Urine RBC (Auto) 0 08/07/19 08/07/19 08/08/19 14:14 19:51 01:53 CK-MB (CK-2) 1.76 1.96 Troponin I < 0.012 < 0.012 < 0.012 NT-Pro-B Natriuret Pep 42 Impressions: Chest X-Ray 08/07/19 13:08 IMPRESSION: No acute cardiopulmonary process. 08/08/19 07:22 MCV 81 fl (80-97) 08/08/19 07:22 MCH 27.3 pg (27.0-33.4) 08/08/19 07:22 MCHC 33.6 g/dL (32.0-36.0) 08/08/19 07:22 RDW 14.8 % (11.5-14.0) H 08/08/19 07:22 Seg Neutrophils % 66.9 % (42-78) 08/08/19 07:22 Chloride 100 mmol/L (98-107) 08/07/19 14:14 Carbon Dioxide 29 mmol/L (22-30) 08/07/19 14:14 Anion Gap 7 (5-19) 08/07/19 14:14 Est GFR ( Amer) > 60 (>60) 08/07/19 14:14 Glucose 100 mg/dL (75-110) 08/07/19 14:14 Calcium 9.7 mg/dL (8.4-10.2) 08/07/19 14:14 Total Bilirubin 0.4 mg/dL (0.2-1.3) 08/07/19 14:14 AST 20 U/L (14-36) 08/07/19 14:14 Alkaline Phosphatase 78 U/L (38-126) 08/07/19 14:14 Total Protein 6.9 g/dL (6.3-8.2) 08/07/19 14:14 Albumin 3.9 g/dL (3.5-5.0) 08/07/19 14:14 TSH 3.15 uIU/mL (0.47-4.68) 08/07/19 14:14 Urine Color YELLOW 08/07/19 18:57 Urine Appearance SLIGHTLY-CLOUDY 08/07/19 18:57 Urine pH 7.0 (5.0-9.0) 08/07/19 18:57 Ur Specific [place] 1.017 08/07/19 18:57 Urine Protein NEGATIVE mg/dL (NEGATIVE) 08/07/19 18:57 Urine Glucose (UA) NEGATIVE mg/dL (NEGATIVE) 08/07/19 18:57 Urine Ketones NEGATIVE mg/dL (NEGATIVE) 08/07/19 18:57 Urine Blood NEGATIVE (NEGATIVE) 08/07/19 18:57 Urine RBC (Auto) 0 /HPF 08/07/19 18:57 08/07/19 08/07/19 08/08/19 14:14 19:51 01:53 CK-MB (CK-2) 1.76 1.96 Troponin I < 0.012 < 0.012 < 0.012 NT-Pro-B Natriuret Pep 42 Current Medication List Generic Name Dose Route Start Last Admin Trade Name Freq PRN Reason Stop Dose Admin Acetaminophen 650 mg 08/07/19 16:31 Tylenol 325 Mg Tablet PO 09/06/19 16:30 Q4HP PRN FOR PAIN Albuterol/Ipratropium 3 ml 08/07/19 16:31 Duoneb 3 Ml Ampul NEB 09/06/19 16:30 RTQ4HP PRN SHORTNESS OF BREATH Docusate Sodium 100 mg 08/07/19 18:00 08/07/19 18:38 Colace 100 Mg Capsule PO 09/06/19 17:59 Not Given BID [facility] Famotidine 20 mg 08/07/19 22:00 08/07/19 21:16 Pepcid 20 Mg Tablet PO 09/06/19 21:59 Not Given Q12 MELIA Ondansetron HCl 4 mg 08/07/19 16:31 Zofran Odt 4 Mg Tablet PO 09/06/19 16:30 Q6HP PRN FOR NAUSEA/VOMITING Ondansetron HCl 4 mg 08/07/19 16:31 Zofran Inj/Pf 4 Mg/2 Ml Sdv IV 09/06/19 16:30 Q6HP PRN FOR NAUSEA/VOMITING Rivaroxaban 20 mg 08/07/19 22:00 08/07/19 21:15 Xarelto 10 Mg Tablet PO 09/06/19 21:59 Not Given QHS [facility] Assessment & Plan - Diagnosis (1) Dyspnea Qualifiers: Dyspnea type: unspecified Qualified Code(s): R06.00 - Dyspnea, unspecified Is this a current diagnosis for this admission?: Yes Plan: 48-year-old female with multiple DVTs in the past and recurrent PEs per her report who had been experiencing worsening of her dyspnea since 2018 to the point he sought medical attention in the emergency room on 08/07/2019 after 3 days of increased shortness of breath. Her cardiovascular work-up so far has been negative with normal proBNP and normal cardiac enzymes x3. She did not have symptoms consistent with acute coronary syndrome or cardiac ischemia. Her only cardiac risk factors for coronary artery disease are sedentary lifestyle and tobacco use in the past. There is no evidence of heart failure on exam or on chest x-ray. Her echocardiogram, although of poor quality, showed that her LV systolic function is grossly normal as well as her RV function. Unfortunately valvular structures were not well visualized and estimation of pulmonary pressure was not possible. At this point I believe her dyspnea is multifactorial in etiology to include morbid obesity, history of pulmonary embolisms, sedentary lifestyle, deconditioning and possibly restrictive lung disease due to her body habitus. She needs to be evaluated by pulmonology and, if no significant pathology found, she will need an outpatient pharmacological nuclear stress test. Recommendations: -No further inpatient cardiovascular work-up indicated at this point. -Pulmonology consult with Dr. Xie or Dr. Liset Hackett with [facility]. -Consider Lexiscan MPS if pulmonology evaluation proves negative.
[2019-08-08 08:42] LABS: TROPONIN I < 0.012 ng/mL
[2019-08-08] MEDS: DOCUSATE SODIUM 100 MG CAPSULE PO SCH (09:38)
[2019-08-08] MEDS: FAMOTIDINE 20 MG TABLET PO SCH (09:38)
[2019-08-08] MEDS ORDERED: RIVAROXABAN 10 MG TABLET PO SCH (10:00)
--- NOTE | 2019-08-08 10:46 | PDOC DISCHARGE SUMMARY ---
Impression - Admit/DC Date/PCP Admission Date/Primary Care Provider: 08/07/19 16:[address] [facility] Discharge Date: 08/08/19 - Discharge Diagnosis (1) Dyspnea Is this a current diagnosis for this admission?: Yes (2) Uncontrolled nonfamilial obstructive sleep apnea Is this a current diagnosis for this admission?: Yes (3) Asthma, moderate persistent Is this a current diagnosis for this admission?: Yes (4) History of pulmonary embolism Is this a current diagnosis for this admission?: Yes (5) History of deep vein thrombosis Is this a current diagnosis for this admission?: Yes (6) Morbid obesity Is this a current diagnosis for this admission?: Yes - Additional Information Resuscitation Status: Full Code Discharge Diet: As Tolerated Referrals: LISET MICHAUD MD [NO LOCAL MD] - EVELIO BHAKTA MD [ACTIVE STAFF] - Follow up as needed Prescriptions: Budesonide/Formoterol Fumarate [Symbicort Hfa 80-4.5 Mcg Inhaler 6.9 gm] 2 puff IH Q12 #2 inhaler Home Medications: Lisinopril/Hydrochlorothiazide [Lisinopril-Hctz 10-12.5 mg Tab] 1 each PO DAILY #30 tablet 01/03/15 Fluoxetine HCl [Prozac 20 mg Capsule] 20 mg PO DAILY 08/07/19 [place] Carbonate [Lithobid 300 mg Capsule] 300 mg PO Q12 08/07/19 Rivaroxaban [Xarelto 10 mg Tablet] 10 mg PO DAILY 08/07/19 Albuterol Sulfate [Ventolin Hfa 8 gm Mdi (1 Mdi/ER Disp)] 2 puff IH ASDIR PRN 08/08/19 Budesonide/Formoterol Fumarate [Symbicort Hfa 80-4.5 Mcg Inhaler 6.9 gm] 2 puff IH Q12 #2 inhaler 08/08/19 History of Present Illiness History of Present Illness: According to admitting provider, LISET HILL is a 48 year old female comes in stating that for the last 3 days she has been more short of breath than usual. She states she went over to her friend's house about a pulse oximeter and she checked her oxygen saturation and it was 91%. States her normal oxygen saturations 97% on room air. The reason she knows this is because once a month she sees her psychiatrist and on her vital signs they check her oxygen. She has a history of a pulmonary embolism as well as multiple DVTs. First DVT was 21 years ago in the right leg and then 9 years ago she had another DVT in her right leg and then 8 years ago she had several PEs in her chest. Patient has been on Xarelto now for at least [address] Elizalde the chinese medicine practitioner for this. Patient also states she has had more edema in her legs the last few days. Patient also has a past history of PTSD and depression as well as anxiety Comes in for an echocardiogram and cardiac consult. BNP is 42 and initial troponin is normal. CXR shows no acute cardiopulmonary disease. Medically stable to move to the floor Hospital Course Hospital Course: Discussed elaborately with patient today. Patient did come in with dyspnea. Dyspnea seems to be present at rest and worsens with exertion. She denies any chest pain but did have some pressure-like sensations in her right side a little while back. Endorses history of asthma for which she has been using her albuterol inhaler and has had to use it more frequently. Does states that she notes herself wheezing sometimes but no wheezing on my examination today. She was admitted for work-up of her shortness of breath. Chest x-ray was unimpressive. Echocardiogram was suboptimal quality but still showed no overtly remarkable findings to explain her dyspnea. Moreover, a BNP of 40s, despite her morbid obesity, technically rules out acute decompensated heart failure as the cause of her shortness of breath. I believe patient's shortness of breath is secondary to uncontrolled sleep apnea as she admits to having prior diagnosis of sleep apnea, has large neck size, snores profoundly, admits to daytime somnolence and very unrefreshing sleep. Patient has just applied for Medicaid and is still awaiting response but does not follow-up with any occupational therapy teacher or physician currently. Have recommended patient see a occupational therapy teacher to set up a sleep study as she will require a CPAP if she does have MARLENY and also to set up a pulmonary function test for evaluation of obstructive versus restrictive lung disease. Given her history of asthma, I have decided to also add on a Symbicort inhaler in the meantime. Patient has been instructed to continue to take her Xarelto and will follow-up with Dr. Bhakta who she states recently reduced the dose to 10 mg nightly. Patient is stable and safe for discharge at this time. Physical Exam Vital Signs: Temp Pulse Resp BP Pulse Ox 97.8 F 85 14 127/59 H 96 08/08/19 07:17 08/08/19 08:41 08/08/19 08:41 08/08/19 07:17 08/08/19 08:41 Intake & Output 08/07/19 08/08/19 08/09/19 06:59 06:59 06:59 Weight 145.2 kg General appearance: PRESENT: no acute distress, cooperative Neck exam: ABSENT: JVD Respiratory exam: PRESENT: clear to auscultation alexsander, unlabored. ABSENT: accessory muscle use, rhonchi, tachypnea, wheezes Cardiovascular exam: PRESENT: +S1, +S2. ABSENT: tachycardia GI/Abdominal exam: PRESENT: soft. ABSENT: rebound, rigid, tenderness Neurological exam: PRESENT: alert Results Laboratory Results: WBC 11.0 10^3/uL (4.0-10.5) H 08/08/19 07:22 RBC 4.79 10^6/uL (3.72-5.28) 08/08/19 07:22 Hgb 13.1 g/dL (12.0-15.5) 08/08/19 07:22 Hct 39.0 % (36.0-47.0) 08/08/19 07:22 MCV 81 fl (80-97) 08/08/19 07:22 MCH 27.3 pg (27.0-33.4) 08/08/19 07:22 MCHC 33.6 g/dL (32.0-36.0) 08/08/19 07:22 RDW 14.8 % (11.5-14.0) H 08/08/19 07:22 Plt Count 406 10^3/uL (150-450) 08/08/19 07:22 Lymph % (Auto) 26.3 % (13-45) 08/08/19 07:22 [place] % (Auto) 3.7 % (3-13) 08/08/19 07:22 Eos % (Auto) 2.0 % (0-6) 08/08/19 07:22 Baso % (Auto) 1.1 % (0-2) 08/08/19 07:22 Absolute Neuts (auto) 7.3 10^3/uL (1.7-8.2) 08/08/19 07:22 Absolute Lymphs (auto) 2.9 10^3/uL (0.5-4.7) 08/08/19 07:22 Absolute Monos (auto) 0.4 10^3/uL (0.1-1.4) 08/08/19 07:22 Absolute Eos (auto) 0.2 10^3/uL (0.0-0.6) 08/08/19 07:22 Absolute Basos (auto) 0.1 10^3/uL (0.0-0.2) 08/08/19 07:22 Seg Neutrophils % 66.9 % (42-78) 08/08/19 07:22 PT 12.9 SEC (11.4-15.4) 08/07/19 14:14 INR 0.97 08/07/19 14:14 APTT 27.6 SEC (23.5-35.8) 08/07/19 14:14 Sodium 136.0 mmol/L (137-145) L 08/08/19 07:22 Potassium 4.0 mmol/L (3.6-5.0) 08/08/19 07:22 Chloride 103 mmol/L (98-107) 08/08/19 07:22 Carbon Dioxide 22 mmol/L (22-30) 08/08/19 07:22 Anion Gap 11 (5-19) 08/08/19 07:22 BUN 14 mg/dL (7-20) 08/08/19 07:22 Creatinine 0.55 mg/dL (0.52-1.25) 08/08/19 07:22 Est GFR ( Amer) > 60 (>60) 08/08/19 07:22 Est GFR (MDRD) Non-Af > 60 (>60) 08/08/19 07:22 Glucose 132 mg/dL (75-110) H 08/08/19 07:22 Calcium 9.3 mg/dL (8.4-10.2) 08/08/19 07:22 Magnesium 2.2 mg/dL (1.6-2.3) 08/08/19 07:22 Total Bilirubin 0.4 mg/dL (0.2-1.3) 08/07/19 14:14 Direct Bilirubin 0.0 mg/dL (0.0-0.4) 08/07/19 14:14 Neonat Total Bilirubin Not Reportable 08/07/19 14:14 Neonat Direct Bilirubin Not Reportable 08/07/19 14:14 Neonat Indirect Bili Not Reportable 08/07/19 14:14 AST 20 U/L (14-36) 08/07/19 14:14 ALT 17 U/L (<35) 08/07/19 14:14 Alkaline Phosphatase 78 U/L (38-126) 08/07/19 14:14 CK-MB (CK-2) 1.95 ng/mL (<4.55) 08/08/19 07:22 Troponin I < 0.012 ng/mL 08/08/19 07:22 NT-Pro-B Natriuret Pep 26 pg/mL (<125) 08/08/19 07:22 Total Protein 6.9 g/dL (6.3-8.2) 08/07/19 14:14 Albumin 3.9 g/dL (3.5-5.0) 08/07/19 14:14 TSH 3.15 uIU/mL (0.47-4.68) 08/07/19 14:14 Urine Color YELLOW 08/07/19 18:57 Urine Appearance SLIGHTLY-CLOUDY 08/07/19 18:57 Urine pH 7.0 (5.0-9.0) 08/07/19 18:57 Ur Specific [place] 1.017 08/07/19 18:57 Urine Protein NEGATIVE mg/dL (NEGATIVE) 08/07/19 18:57 Urine Glucose (UA) NEGATIVE mg/dL (NEGATIVE) 08/07/19 18:57 Urine Ketones NEGATIVE mg/dL (NEGATIVE) 08/07/19 18:57 Urine Blood NEGATIVE (NEGATIVE) 08/07/19 18:57 Urine Nitrite (Reflex) NEGATIVE (NEGATIVE) 08/07/19 18:57 Urine Bilirubin NEGATIVE (NEGATIVE) 08/07/19 18:57 Urine Urobilinogen NEGATIVE mg/dL (<2.0) 08/07/19 18:57 Leukocyte Esterase Rfl NEGATIVE (NEGATIVE) 08/07/19 18:57 Urine RBC (Auto) 0 /HPF 08/07/19 18:57 Urine Bacteria (Auto) 1+ /HPF 08/07/19 18:57 Urine WBC (Reflex) 1 /HPF 08/07/19 18:57 Squamous Epi Cells Auto 1 /HPF 08/07/19 18:57 Urine Mucus (Auto) RARE /LPF 08/07/19 18:57 Urine Ascorbic Acid NEGATIVE (NEGATIVE) 08/07/19 18:57 08/07/19 08/07/19 08/08/19 14:14 19:51 01:53 CK-MB (CK-2) 1.76 1.96 Troponin I < 0.012 < 0.012 < 0.012 NT-Pro-B Natriuret Pep 42 08/08/19 07:22 CK-MB (CK-2) 1.95 Troponin I < 0.012 NT-Pro-B Natriuret Pep 26 Impressions: Chest X-Ray 08/07/19 13:08 IMPRESSION: No acute cardiopulmonary process. Plan Time Spent: Less than 30 Minutes Stroke Is this a Stroke Patient?: No Acute Heart Failure - Is this a Heart Failure Patient?: No
[2019-08-08 12:09] VITALS: BP 132/50
== END 2019-08-08 13:04 | disposition home or self-care (01) ==
LOC: ER 12:44 → EH 16:37 → 4W 18:33
PROVIDERS: ADMIT Hospitalist; ATTEND Internal Medicine
DX: R06.00 Dyspnea, unspecified (principal); G47.33 Obstructive sleep apnea (adult) (pediatric); J45.40 Moderate persistent asthma, uncomplicated; E66.01 Morbid (severe) obesity due to excess calories; F32.9 Major depressive disorder, single episode, unspecified; F41.9 Anxiety disorder, unspecified; I10 Essential (primary) hypertension; R60.0 Localized edema; M13.862 Other specified arthritis, left knee; M13.861 Other specified arthritis, right knee; F43.10 Post-traumatic stress disorder, unspecified; Z86.711 Personal history of pulmonary embolism; Z86.718 Personal history of other venous thrombosis and embolism; Z79.02 Long term (current) use of antithrombotics/antiplatelets; Z79.899 Other long term (current) drug therapy; Z87.891 Personal history of nicotine dependence; Z82.49 Family history of ischemic heart disease and other diseases of the circulatory system; Z59.7 Insufficient social insurance and welfare support
CPT/HCPCS: 93005; 99285; 36415 ×2; 82553 ×2; 83735; 84443; 85025 ×2; 85610; 85730; 80048; 80053; 81001; 84484 ×2; 83880 ×2; 93306; 71045; 93010; G0378 ×3

== ENCOUNTER 2019-11-01 21:24 | Emergency (ER) | payer SELFPAY ==
--- NOTE | 2019-11-01 22:05 | ER Document Report ---
ED Medical Screen (RME) - General Chief Complaint: Chest Pain > 30 Stated Complaint: SHORTNESS OF BREATH Time Seen by Provider: 11/01/19 21:54 Primary Care Provider: EVELIO SINGH MD [Primary Care Provider] - Follow up as needed Mode of Arrival: Wheelchair Information source: Patient Notes: 49-year-old female presented to ED for shortness of breath all the time. She states she was in here for the same thing in August. She was told in August that she might have COPD. She does have a history of pulmonary emboli and is on Xarelto. She also has a history of high blood pressure DVT depression anxiety and PTSD. She states she does have an appointment with journeyman welder in January. She states she does not smoke drink or use any drugs. She states she is very short of breath at this time. She points to the center of her chest for her pain is. I have greeted and performed a rapid initial assessment of this patient. A comprehensive ED assessment and evaluation of the patient, analysis of test results and completion of medical decision making process will be conducted by an additional ED providers. TRAVEL OUTSIDE OF THE [place] IN LAST 30 DAYS: No - Related Data Allergies/Adverse Reactions: codeine [Codeine] Allergy (Verified 09/28/18 17:27) rash, headache Penicillins Allergy (Verified 09/28/18 17:27) itching rash hydromorphone HCl [From Dilaudid] Adverse Reaction (Verified 09/28/18 17:27) morphine [Morphine] Adverse Reaction (Verified 09/28/18 17:27) Past Medical History - Past Medical History Cardiac Medical History: Reports: Hx DVT - LLE, Hx Hypertension, Hx Pulmonary Embolism Pulmonary Medical History: Reports: Hx Asthma Renal/ Medical History: Denies: Hx Peritoneal Dialysis Musculoskeltal Medical History: Reports Hx Arthritis - knees and back, Reports Hx Musculoskeletal Deformity, Reports Hx Musculoskeletal Trauma Psychiatric Medical History: Reports: Hx Bipolar Disorder, Hx Depression, Hx Post Traumatic Stress Disorder Past Surgical History: Reports: Hx Section - x 2, Hx Cholecystectomy, Hx Gynecologic Surgery - Endometrial ablation, Hx Hysterectomy, Hx Orthopedic Surgery - Left ACL cadaver graft, bilateral carpal tunnel,, Hx Tubal Ligation - Immunizations Hx Diphtheria, Pertussis, Tetanus Vaccination: Yes Doctor's Discharge - Discharge Referrals: EVELIO SINGH MD [Primary Care Provider] - Follow up as needed
--- NOTE | 2019-11-01 22:58 | RADIOLOGY REPORT (SQ) ---
CLINICAL INDICATION: Chest pain shortness of breath history of emboli. TECHNIQUE: Frontal and lateral views were obtained of the chest COMPARISON: August 07, 2019. FINDINGS: The cardiomediastinal silhouette is prominent but stable. The lungs are grossly clear. No evidence of effusion or pneumothorax. Visualized bones are unremarkable. Mild chronic parenchymal lung change.. IMPRESSION: No evidence of active intrathoracic disease .
[2019-11-01 23:00] VITALS: BP 149/91
--- NOTE | 2019-11-02 00:35 | ER Document Report ---
Entered by CRYSTAL CROWELL SCRIBE 11/02/19 0027 Acting as scribe for:JAYSON WALTON DO ED Respiratory Problem - General Chief Complaint: Shortness Of Breath Stated Complaint: SHORTNESS OF BREATH Time Seen by Provider: 11/01/19 21:54 Primary Care Provider: EVELIO SINGH MD [ACTIVE STAFF] - Follow up as needed Mode of Arrival: Wheelchair Information source: Patient Notes: This 49 year old female patient with asthma presents to the emergency department today with complaints of shortness of breath which began this evening as she was riding around in the electric wheelchair at [facility]. She reports that it "felt like her lungs were stuck together", and she mentions that she gets this sensation frequently and she was told to follow up with pulmonology but she has not done that yet. She denies any fevers, leg pain/swelling, or abdominal pain. TRAVEL OUTSIDE OF THE [place] IN LAST 30 DAYS: No - Related Data Allergies/Adverse Reactions: codeine [Codeine] Allergy (Verified 09/28/18 17:27) rash, headache Penicillins Allergy (Verified 09/28/18 17:27) itching rash hydromorphone HCl [From Dilaudid] Adverse Reaction (Verified 09/28/18 17:27) morphine [Morphine] Adverse Reaction (Verified 09/28/18 17:27) Home Medications: advair, albuterol, bp med, HCTZ, lithium, prozac, xaralto, allergy med, mvi, stool softner Past Medical History - General Information source: Patient - Social History Smoking Status: Former Smoker Cigarette use (# per day): No Frequency of alcohol use: None Drug Abuse: None Lives with: Friend Family History: Arthritis, CAD, DM, Hyperlipidemia, Hypertension, Malignancy, Other Patient has homicidal ideation: No - Past Medical History Cardiac Medical History: Reports: Hx DVT - LLE, Hx Hypertension, Hx Pulmonary Embolism Pulmonary Medical History: Reports: Hx Asthma Musculoskeletal Medical History: Reports Hx Arthritis - knees and back, Reports Hx Musculoskeletal Deformity, Reports Hx Musculoskeletal Trauma Psychiatric Medical History: Reports: Hx Bipolar Disorder, Hx Depression, Hx Post Traumatic Stress Disorder Past Surgical History: Reports: Hx Section - x 2, Hx Cholecystectomy, Hx Gynecologic Surgery - Endometrial ablation, Hx Hysterectomy, Hx Orthopedic Surgery - Left ACL cadaver graft, bilateral carpal tunnel,, Hx Tubal Ligation - Immunizations Hx Diphtheria, Pertussis, Tetanus Vaccination: Yes Hx Pneumococcal Vaccination: 09/27/13 Review of Systems - Review of Systems Constitutional: denies: Fever EENT: No symptoms reported Cardiovascular: See HPI, Chest pain Respiratory: See HPI, Short of breath Gastrointestinal: denies: Abdominal pain Genitourinary: No symptoms reported Female Genitourinary: No symptoms reported Musculoskeletal: denies: Leg swelling Skin: No symptoms reported Hematologic/Lymphatic: No symptoms reported Neurological/Psychological: No symptoms reported -: Yes All other systems reviewed and negative Physical Exam - Vital signs Vitals: Temp Pulse Resp BP Pulse Ox 98.4 F 102 H 26 H 149/91 H 97 11/01/19 22:58 11/01/19 22:58 11/01/19 22:58 11/01/19 22:58 11/01/19 22:58 - Notes Notes: Physical Exam: General: Alert, morbidly obese. HEENT: Normocephalic. Atraumatic. PERRL. Extraocular movements intact. Oropharynx clear. Neck: Supple. Non-tender. Respiratory: No respiratory distress. Diminished breath sounds bilaterally. Cardiovascular: Regular rate and rhythm. Abdominal: Morbidly obese. Non-tender. No distension. Normal Bowel Sounds. Back: No gross abnormalities. Extremities: Moves all four extremities. Upper extremities: Normal inspection. Normal ROM. Lower extremities: Normal inspection. No edema. Normal ROM. Neurological: Normal cognition. AAOx4. Normal speech. Psychological: Normal affect. Normal Mood. Skin: Warm. Dry. Normal color. Course - Re-evaluation Re-evalutation: 11/02/19 01:17 MDM 49 year old female was sob while shopping at [employer] and came here for evaluation. H/O pe and asthma and MARLENY. Takes xarelto and has not run out and is still compliant. She tells me her sob is better when I see her and in fact she has had several spells of this with 1 this severe in 08/2019 for which she was admitted to the hospital and had a cardiac evaluation which reportedly was reassuring. She denies fever or cough or covid exposure. Used rescue inhaler at home and that seemed to help a bit. No chest pain. Feel this does not represent a pe although that was considered as her sat is 100%, she is neither t achypneic nor tachycardic and her cardiac markers are normal. Impportantly she feels better. She is due to follow up with Pulmonology and I wish to spare her breasts exposure to radiation when the likleyhood of her having a pe is, in my opinion, low. Other considerations were pneumothorax, cap, acs. She is well here, clinically stable and nontoxic and reasonable for follow up. She is in agreement with this plan. HR is 102 on VS but while in the room and speaking with here heart rate was sinus in the 90's and saturation was 100% on room air. My count of resp rate was 20. - Vital Signs Vital signs: Temp Pulse Resp BP Pulse Ox 98.4 F 102 H 26 H 149/91 H 97 11/01/19 22:58 11/01/19 22:58 11/01/19 22:58 11/01/19 22:58 11/01/19 22:58 - Laboratory Result Diagrams: 11/02/19 00:30 11/02/19 01:16 Laboratory results interpreted by me: 11/02/19 11/02/19 00:30 01:16 WBC 17.0 H MCH 26.8 L RDW 15.3 H Absolute Neuts (auto) 11.9 H Potassium 3.4 L Glucose 196 H - Diagnostic Test Radiology reviewed: Image reviewed, Reports reviewed Discharge - Discharge Clinical Impression: MARLENY (obstructive sleep apnea), Morbid obesity with BMI of 50.0-59.9, adult, Hypokalemia Dyspnea Qualifiers: Dyspnea type: unspecified Qualified Code(s): R06.00 - Dyspnea, unspecified Condition: Stable Disposition: HOME, SELF-CARE Instructions: Asthma ([facility]), Dyspnea, Nonspecific ([facility]), Hyperglycemia ([facility]), Hypokalemia ([facility]) Additional Instructions: Please return here for chest pain or shortness of breath or fever or other problems or other concerns. Call your primary doctor this morning to discuss follow. Continue to take your blood thinner daily as you have been. Additionally your blood sugar is elevated and your potassium is a bit low and these should both be rechecked by your primary doctor in follow up. There was potassium sent to your pharmacy. Prescriptions: Potassium Chloride 20 meq PO DAILY #5 packet Referrals: JAYARAM,EVELIO H, MD [ACTIVE STAFF] - Follow up as needed I personally performed the services described in the documentation, reviewed and edited the documentation which was dictated to the scribe in my presence, and it accurately records my words and actions.
[2019-11-02 00:49] LABS: ABSOLUTE BASOPHILS # (AUTO) 0.2 10^3/uL (0.0-0.2); ABSOLUTE EOSINOPHILS # (AUTO) 0.3 10^3/uL (0.0-0.6); ABSOLUTE LYMPHOCYTES (AUTO) 4.1 10^3/uL (0.5-4.7); ABSOLUTE MONOCYTES (AUTO) 0.5 10^3/uL (0.1-1.4); ABSOLUTE NEUT (AUTO) 11.9 10^3/uL (1.7-8.2); BASOPHILS % (AUTO) 1.5 % (0-2); EOSINOPHILS % (AUTO) 1.6 % (0-6); HEMATOCRIT 40.1 % (36.0-47.0); HEMOGLOBIN 13.2 g/dL (12.0-15.5); LYMPHOCYTES % (AUTO) 23.9 % (13-45); MEAN CORPUSCULAR HEMOGLOBIN 26.8 pg (27.0-33.4); MEAN CORPUSCULAR HGB CONC 32.9 g/dL (32.0-36.0); MEAN CORPUSCULAR VOLUME 81 fl (80-97); MONOCYTES % (AUTO) 3.1 % (3-13); PLATELET COUNT 382 10^3/uL (150-450); RED BLOOD COUNT 4.92 10^6/uL (3.72-5.28); RED CELL DISTRIBUTION WIDTH 15.3 % (11.5-14.0); SEGMENTED NEUTROPHILS % (AUTO) 69.9 % (42-78); TOTAL CELLS COUNTED % (AUTO) 100 %
[2019-11-02 01:52] LABS: ALBUMIN 3.7 g/dL (3.5-5.0); ALKALINE PHOSPHATASE 81 U/L (38-126); ANION GAP 11 (5-19); ASPARTATE AMINO TRANSFERASE 24 U/L (14-36); BILIRUBIN,DIRECT 0.2 mg/dL (0.0-0.4); BILIRUBIN,TOTAL 0.4 mg/dL (0.2-1.3); BLOOD UREA NITROGEN 13 mg/dL (7-20); CALCIUM 9.5 mg/dL (8.4-10.2); CARBON DIOXIDE 24 mmol/L (22-30); CHLORIDE 103 mmol/L (98-107); CREATINE KINASE 100 U/L (30-135); GLUCOSE 196 mg/dL (75-110); POTASSIUM 3.4 mmol/L (3.6-5.0); TOTAL PROTEIN 6.4 g/dL (6.3-8.2)
--- NOTE | 2019-11-02 10:13 | EKG REPORT ---
SEVERITY:- ABNORMAL ECG - SINUS TACHYCARDIA PROBABLE LEFT ATRIAL ABNORMALITY LEFT VENTRICULAR HYPERTROPHY : Confirmed by: Donna Mendoza MD 02-Nov-2019 10:13:14
== END 2019-11-02 03:19 | disposition home or self-care (01) ==
LOC: ER 21:24
DX: J45.909 Unspecified asthma, uncomplicated (principal); G47.33 Obstructive sleep apnea (adult) (pediatric); E66.01 Morbid (severe) obesity due to excess calories; Z68.43 Body mass index [BMI] 50.0-59.9, adult; R07.9 Chest pain, unspecified; E87.6 Hypokalemia; F31.9 Bipolar disorder, unspecified; Z79.51 Long term (current) use of inhaled steroids; Z79.899 Other long term (current) drug therapy; Z79.01 Long term (current) use of anticoagulants; Z86.718 Personal history of other venous thrombosis and embolism; Z86.711 Personal history of pulmonary embolism; Z87.891 Personal history of nicotine dependence
CPT/HCPCS: 36415; 71046; 80053; 82550; 83690; 84484; 85025; 93005; 93010; 99285

== ENCOUNTER → 2019-11-15 | Outpatient (CLI) | payer OTHER ==
[2019-11-15 14:22] LABS: ANION GAP 14 (5-19); BLOOD UREA NITROGEN 12 mg/dL (7-20); CALCIUM 9.3 mg/dL (8.4-10.2); CARBON DIOXIDE 27 mmol/L (22-30); CHLORIDE 100 mmol/L (98-107); GLUCOSE 153 mg/dL (75-110); POTASSIUM 3.6 mmol/L (3.6-5.0)
== END ==
LOC: CCC 12:47
PROVIDERS: ATTEND Internal Medicine
DX: R73.09 Other abnormal glucose (principal); E87.6 Hypokalemia
CPT/HCPCS: 36415; 80048; 83036

== ENCOUNTER 2019-12-03 10:25 | Emergency (ER) | payer OTHER ==
[2019-12-03] MEDS ORDERED: OXYCODONE-ACETAMINOPHEN 5-325 MG TABLET PO ONE ×2 (11:07→11:58)
--- NOTE | 2019-12-03 11:08 | ER Document Report ---
HPI - HPI Patient complains to provider of: Left knee pain Time Seen by Provider: 12/03/19 10:58 Pain Level: 4 Notes: 49-year-old female to the emergency department with complaints of left knee pain that began 1 week ago and got significantly worse in the past 24 hours. She states 1 week ago she was walking around in her stereo apartment when she felt her left knee shift. She states she was able to get it realigned but has had pain on the knee ever since. She states that this knee has had an ACL repair about 20 years ago and that she has been using a cane for some time because sometimes she feels like her knees are getting give out on her. She states she is really been babying the knee for the past week but last night she had a lot of pain with the knee took some ibuprofen and tried to sleep. She states she tossed and turned all night long because her knee was bothering her. She states this morning when she tried to get up she had such bad pain that she really could not stand and walk on the knee. She states that the knee feels very unstable to her like it is crumbling inside. She denies any fevers or chills. The knee is not hot or red. She denies any grayson falls or blunt trauma to the knee. She does not have an orthopedist. - ROS Systems Reviewed and Negative: Yes All other systems reviewed and negative - CONSTITUTIONAL Constitutional: DENIES: Fever, Chills - EENT EENT: DENIES: Sore Throat, Ear Pain - NEURO Neurology: DENIES: Headache, Weakness - CARDIOVASCULAR Cardiovascular: DENIES: Chest pain - RESPIRATORY Respiratory: DENIES: Trouble Breathing, Coughing - GASTROINTESTINAL Gastrointestinal: DENIES: Abdominal Pain, Nausea, Patient vomiting, Diarrhea - MUSCULOSKELETAL Musculoskeletal: REPORTS: Extremity pain Notes: Left knee pain - DERM Skin Color: Normal Skin Problems: None Past Medical History - General Information source: Patient - Social History Smoking Status: Unknown if Ever Smoked Chew tobacco use (# tins/day): No Frequency of alcohol use: None Drug Abuse: None Family History: Arthritis, CAD, DM, Hyperlipidemia, Hypertension, Malignancy, Other - Past Medical History Cardiac Medical History: Reports: Hx DVT - LLE, Hx Hypertension, Hx Pulmonary Embolism Pulmonary Medical History: Reports: Hx Asthma Renal/ Medical History: Denies: Hx Peritoneal Dialysis Musculoskeletal Medical History: Reports Hx Arthritis - knees and back, Reports Hx Musculoskeletal Deformity, Reports Hx Musculoskeletal Trauma Psychiatric Medical History: Reports: Hx Bipolar Disorder, Hx Depression, Hx Post Traumatic Stress Disorder Past Surgical History: Reports: Hx Section - x 2, Hx Cholecystectomy, Hx Gynecologic Surgery - Endometrial ablation, Hx Hysterectomy, Hx Orthopedic Surgery - Left ACL cadaver graft, bilateral carpal tunnel,, Hx Tubal Ligation - Immunizations Hx Diphtheria, Pertussis, Tetanus Vaccination: Yes Hx Pneumococcal Vaccination: 09/27/13 Vertical Provider Document - CONSTITUTIONAL Agree With Documented VS: Yes Exam Limitations: No Limitations General Appearance: WD/WN, Moderate Distress, Obese Notes: Moderate pain distress. Patient is trying to support the left knee in the wheelchair. She is slightly tearful due to the pain. She is significantly obese - INFECTION CONTROL TRAVEL OUTSIDE OF THE [place] IN LAST 30 DAYS: No - HEENT HEENT: Atraumatic, Normocephalic, PERRLA - NECK Neck: Normal Inspection, Supple - RESPIRATORY Respiratory: Breath Sounds Normal, No Respiratory Distress. negative: Rales, Rhonchi, Wheezing - CARDIOVASCULAR Cardiovascular: Regular Rate, Regular Rhythm, No Murmur - GI/ABDOMEN Gastrointestinal: Abdomen Soft, Abdomen Non-Tender - MUSCULOSKELETAL/EXTREMETIES Notes: There is tenderness to palpation along the lateral anterior joint line of the left knee and along the lateral aspect of the knee. It appears to be a little bit more edematous however her body habitus limits the evaluation of the knee exam. Not hot. Is not red. Manipulation of the knee creates a lot of pain. She is not able to tolerate valgus varus stress or anterior drawer to elicit a very good exam. She is nontender to palpation in her left hip and left ankle and foot. DP pulses are intact and equal. She can wiggle all toes. Course - Re-evaluation Re-evalutation: 12/03/19 12:25 Noted x-ray reading with tricompartmental narrowing plus joint effusion. Place patient in a knee immobilizer and attempted to get her up and see if she could ambulate with potentially a walker. Her pain was significant when she was standing. We will give her another Percocet and scan the knee to look for any occult fractures not seen on the x-ray. Patient agrees with the plan. 12/03/19 13:46 Patient with improved pain after second dose of Percocet. Noted CT reading. Patient with no fracture on CT. She does have a noted Jackson's cyst, larger suprapatellar effusion and tricompartmental osteoarthritis. We will plan on having her follow-up with orthopedist and have written for a walker plus pain control. Patient agrees with the plan. We will discharge home. Knee X-Ray 12/03/19 11:07 IMPRESSION: Tunneling and tacks from old ACL repair Small knee joint effusion Moderate medial, lateral, and patellofemoral compartment joint space narrowing and bony spurring. Lower Extremity CT 12/03/19 11:58 IMPRESSION: No acute fracture or malalignment. Large knee joint. Old ACL repair. Tricompartment osteoarthritis - Vital Signs Vital signs: Temp Pulse Resp BP Pulse Ox 98.1 F 95 22 H 150/84 H 95 12/03/19 10:59 12/03/19 10:47 12/03/19 10:47 12/03/19 10:47 12/03/19 10:47 - Diagnostic Test Radiology reviewed: Image reviewed, Reports reviewed Discharge - Discharge Clinical Impression: Suprapatellar effusion of knee, Tricompartment osteoarthritis of left knee Left knee pain Qualifiers: Chronicity: acute Qualified Code(s): M25.562 - Pain in left knee Jackson's cyst of knee Qualifiers: Laterality: left Qualified Code(s): M71.22 - Synovial cyst of popliteal space [Jackson], left knee Condition: Stable Disposition: HOME, SELF-CARE Instructions: Ice & Elevation ([facility]), Knee Immobilizing Splint ([facility]), Oral Narcotic Medication ([facility]) Additional Instructions: Please follow-up with the orthopedist without fail on Wednesday. Use walker and knee immobilizer. Take pain medicine as prescribed. Return if worsening symptoms. Prescriptions: Ondansetron [Zofran Odt 4 mg Tablet] 4 mg PO Q4HP PRN #30 tab.rapdis PRN Reason: Oxycodone HCl/Acetaminophen [Percocet 5-325 mg Tablet] 1 tab PO Q6H PRN #15 tab PRN Reason: Walker [Ultra-Light Rollator] 1 each MC DAILY #1 each [facility]errals: [facility] [NO LOCAL MD] - Follow up tomorrow DASHAWN PEDERSEN JR, DO [ACTIVE PROVISIONAL STAFF] - Follow up in 3-5 days (for ortho follow up)
--- NOTE | 2019-12-03 11:45 | RADIOLOGY REPORT (SQ) ---
EXAM DESCRIPTION: KNEE LEFT 4 VIEW IMAGES COMPLETED DATE/TIME: 12/03/2019 11:21 am REASON FOR STUDY: left knee injury COMPARISON: None. NUMBER OF VIEWS: Four views. TECHNIQUE: AP, lateral, and both oblique radiographic images acquired of the left knee. LIMITATIONS: None. FINDINGS: MINERALIZATION: Normal. BONES: No acute fracture or dislocation. Tunneling and tacks from old ACL repair JOINT: Small suprapatellar knee joint effusion. Moderate medial, lateral, and patellofemoral compart ment joint space narrowing. SOFT TISSUES: No soft tissue swelling. No radio-opaque foreign body. OTHER: No other significant finding. IMPRESSION: Tunneling and tacks from old ACL repair Small knee joint effusion Moderate medial, lateral, and patellofemoral compartment joint space narrowing and bony spurring. TECHNICAL DOCUMENTATION: JOB ID: [id number] 2010 [employer]- All Rights Reserved Reading location - IP/workstation name: [id number]
[2019-12-03] MEDS ORDERED: ONDANSETRON 4 MG TAB.RAPDIS PO ONE (11:58)
--- NOTE | 2019-12-03 12:58 | RADIOLOGY REPORT (SQ) ---
EXAM DESCRIPTION: CT LT LOWER EXTREMITY WITHOUT IMAGES COMPLETED DATE/TIME: 12/03/2019 12:30 pm REASON FOR STUDY: severe knee pain COMPARISON: None. TECHNIQUE: CT scan of the left knee performed without intravenous or oral contrast. Images reviewed with soft tissue and bone windows. Reconstructed coronal and sagittal MPR images reviewed. All franci ges stored on PACS. All CT scanners at this facility use dose modulation, iterative reconstruction, and/or weight based d osing when appropriate to reduce radiation dose to as low as reasonably achievable (ALARA). [facility]: Dose Right [facility]: CareDose [facility]: Dose Right [facility]: Teradose 4D [facility]: Smart Swapsee RADIATION DOSE: CT Rad equipment meets quality standard of care and radiation dose reduction techniq ues were employed. CTDIvol: 4.1 mGy. DLP: 104 mGy-cm. mGy. LIMITATIONS: None. FINDINGS: Normal bone density No acute fracture or joint malalignment. Large suprapatellar knee joint effusion, 5 x 2.5 cm Jackson's cyst. Old tunneling in the distal femur proximal tibia from remote prior ACL repair. There is moderate to high-grade medial compartment joint space narrowing, moderate lateral compartmen t joint space narrowing, moderate patellofemoral joint narrowing. No soft tissue masses. IMPRESSION: No acute fracture or malalignment. Large knee joint. Old ACL repair. Tricompartment osteoarthritis TECHNICAL DOCUMENTATION: JOB ID: [id number] Quality ID # [id number]: Final reports with documentation of one or more dose reduction techniques (e.g., Au tomated exposure control, adjustment of the mA and/or kV according to patient size, use of iterative reconstruction technique) 2010 [employer]- All Rights Reserved Reading location - IP/workstation name: [id number]
[2019-12-03 13:38] VITALS: BP 159/100
== END 2019-12-03 13:38 | disposition home or self-care (01) ==
LOC: ER 10:25
DX: M71.22 Synovial cyst of popliteal space [Baker], left knee (principal); M17.12 Unilateral primary osteoarthritis, left knee; M25.462 Effusion, left knee; M25.562 Pain in left knee
CPT/HCPCS: 99284; 73564; 73700; S0119

== ENCOUNTER → 2020-01-23 | Outpatient (CLI) | payer OTHER ==
[2020-01-23 15:06] LABS: ANION GAP 11 (5-19); BLOOD UREA NITROGEN 14 mg/dL (7-20); CALCIUM 9.2 mg/dL (8.4-10.2); CARBON DIOXIDE 27 mmol/L (22-30); CHLORIDE 102 mmol/L (98-107); GLUCOSE 107 mg/dL (75-110); POTASSIUM 3.9 mmol/L (3.6-5.0)
== END ==
LOC: CCC 12:38
PROVIDERS: ATTEND Internal Medicine
DX: E11.8 Type 2 diabetes mellitus with unspecified complications (principal)
CPT/HCPCS: 36415; 80048

== ENCOUNTER → 2020-01-31 | Outpatient (CLI) | payer OTHER ==
[2020-01-31 10:47] LABS: APPEARANCE,URINE SLIGHTLY-CLOUDY; BILIRUBIN,URINE NEGATIVE (NEGATIVE); COLOR,URINE YELLOW; GLUCOSE, URINE NEGATIVE (NEGATIVE); KETONES,URINE NEGATIVE (NEGATIVE); LEUKOCYTE ESTERASE,URINE NEGATIVE (NEGATIVE); NITRITE,URINE NEGATIVE (NEGATIVE); PROTEIN,URINE NEGATIVE (NEGATIVE); URINE SPECIFIC GRAVITY 1.016; UROBILINOGEN,URINE NEGATIVE mg/dL (<2.0)
== END ==
LOC: LAB 10:27
DX: N39.41 Urge incontinence (principal)
CPT/HCPCS: 81001; 87086

== ENCOUNTER 2020-03-05 11:56 | Emergency (ER) | payer SELFPAY ==
[2020-03-05] MEDS ORDERED: RACEPINEPHRINE HCL 2.25% NEB 0.5 ML AMPUL NEB ONE ×2 (13:33→15:05)
[2020-03-05] MEDS ORDERED: PREDNISONE 20 MG TABLET PO ONE (13:33)
--- NOTE | 2020-03-05 14:05 | ER Document Report ---
Entered by ARTURO FARLEY SCRIBE 03/05/20 1323 Acting as scribe for:GET CASTELLON MD ED Respiratory Problem - General Chief Complaint: Cough Stated Complaint: COUGH Time Seen by Provider: 03/05/20 13:20 [facility] [NO LOCAL MD] - Follow up as needed Mode of Arrival: Ambulatory Information source: Patient Notes: This 49 year old female patient with a history of hypertension, PE/DVT in LLE on Xarelto, asthma, COPD, and type 2 diabetes mellitus presents to the ED today with complaints of nonproductive barking cough and shortness of breath that started a couple of days ago. Patient reportedly told nursing that she went to [place] for the holidays. Denies fever, sore throat, or headache. Patient reports she gets similar symptoms only not as bad every year when she gets colds. She has been trying her albuterol inhaler for this, but it has not been helping. TRAVEL OUTSIDE OF THE [place] IN LAST 30 DAYS: No - Related Data Allergies/Adverse Reactions: codeine [Codeine] Allergy (Verified 09/28/18 17:27) rash, headache Penicillins Allergy (Verified 09/28/18 17:27) itching rash hydromorphone HCl [From Dilaudid] Adverse Reaction (Verified 09/28/18 17:27) morphine [Morphine] Adverse Reaction (Verified 09/28/18 17:27) Home Medications: lithium, prozac, HCTZ, metformin Past Medical History - General Information source: Patient, [facility] Records - Social History Smoking Status: Former Smoker - quit x8 years ago Cigarette use (# per day): No Chew tobacco use (# tins/day): No Smoking Education Provided: No Family History: Reviewed & Not Pertinent, Arthritis, CAD, DM, Hyperlipidemia, Hypertension, Malignancy - Past Medical History Cardiac Medical History: Reports: Hx DVT - LLE, Hx Hypercholesterolemia, Hx Hypertension, Hx Pulmonary Embolism Pulmonary Medical History: Reports: Hx Asthma, Hx COPD Endocrine Medical History: Reports: Hx Diabetes Mellitus Type 2 Musculoskeletal Medical History: Reports Hx Arthritis - knees and back, Reports Hx Musculoskeletal Deformity, Reports Hx Musculoskeletal Trauma Psychiatric Medical History: Reports: Hx Bipolar Disorder, Hx Depression, Hx Post Traumatic Stress Disorder Past Surgical History: Reports: Hx Section - x2, Hx Cholecystectomy, Hx Gynecologic Surgery - Endometrial ablation, Hx Hysterectomy, Hx Orthopedic Surgery - Left ACL cadaver graft, bilateral carpal tunnel, Hx Tubal Ligation - Immunizations Hx Diphtheria, Pertussis, Tetanus Vaccination: Yes Hx Pneumococcal Vaccination: 09/27/13 Review of Systems - Review of Systems Constitutional: See HPI. denies: Fever EENT: See HPI. denies: Throat pain Cardiovascular: No symptoms reported Respiratory: See HPI, Cough, Short of breath. denies: Sputum Gastrointestinal: No symptoms reported Genitourinary: No symptoms reported Female Genitourinary: No symptoms reported Musculoskeletal: No symptoms reported Skin: No symptoms reported Hematologic/Lymphatic: No symptoms reported Neurological/Psychological: See HPI. denies: Headaches -: Yes All other systems reviewed and negative Physical Exam - Vital signs Vitals: Temp Pulse Resp BP Pulse Ox 98.4 F 86 24 H 152/92 H 98 03/05/20 12:12 03/05/20 12:12 03/05/20 12:12 03/05/20 12:12 03/05/20 12:12 - General General appearance: Alert In distress: None - HEENT Head: Normocephalic, Atraumatic Eyes: Normal Pupils: PERRL - Respiratory Respiratory status: No respiratory distress Chest status: Nontender Breath sounds: Other - Croupy barking cough. Lungs are clear. Chest palpation: Normal - Cardiovascular Rhythm: Regular Heart sounds: Normal auscultation Murmur: No Friction rub: No Gallop: None auscultated - Abdominal Inspection: Morbidly Obese Distension: No distension Bowel sounds: Normal Tenderness: Nontender - Abdomen soft Organomegaly: No organomegaly - Back Back: Normal, Nontender - Extremities General upper extremity: Normal inspection General lower extremity: Normal inspection. No: Edema - Neurological Neuro grossly intact: Yes Orientation: AAOx4 Burwell Coma Scale Eye Opening: Spontaneous Domingo Coma Scale Verbal: Oriented Domingo Coma Scale Motor: Obeys Commands Domingo Coma Scale Total: 15 - Psychological Associated symptoms: Normal affect, Normal mood - Skin Skin Temperature: Warm Skin Moisture: Dry Skin Color: Normal Course - Re-evaluation Re-evalutation: 03/05/20 14:34 Patient reports she feels much better after racemic epi treatment. Her voice and breathing sound much better. - Vital Signs Vital signs: Temp Pulse Resp BP Pulse Ox 98.7 F 86 20 152/85 H 99 03/05/20 15:51 03/05/20 15:51 03/05/20 15:51 03/05/20 15:51 03/05/20 15:51 - Laboratory Results Critical Laboratory Results Reviewed: No Critical Results - Radiology Results Critical Radiology Results Reviewed: No Critical Results Discharge - Discharge Clinical Impression: Croup, Acute laryngotracheobronchitis Condition: Stable Disposition: HOME, SELF-CARE Additional Instructions: Croup: Your evaluation today suggest you have croup. This is a virus infection of the upper airway. The virus causes swelling in the area of the "voice box," producing a barking cough, hoarseness, and difficulty breathing. If severe airway swelling is present, a medication is given by mist. The improvement may be temporary, however. Antibiotics are usually of no help. Decongestants and antihistamines are best avoided. Cortisone-type medicine may be given for severe cases. The disease lasts five to 10 days, but the respiratory difficulty usually lasts only one or two nights. Home management includes: (1) Administer cool mist via a humidifier in the bedroom. (2) Clear liquid diet and acetaminophen for fever. (3) Expose to cool night air if respirations become noisy. Call the doctor or go to the hospital if you have increasing difficulty breathing, increased fever, productive cough, poor color, or listlessness. Drink plenty of fluids and get plenty of rest. Start the prednisone as prescribed tomorrow--you had today's dose here in the emergency room. Try Robitussin-DM or Delsym DM to help control your cough. Follow-up with your primary care provider if not improving. RETURN TO THE EMERGENCY ROOM IF ANY NEW OR WORSENING SYMPTOMS. Prescriptions: Prednisone [Deltasone 10 mg Tablet] 10 mg PO ASDIR PRN #15 tablet PRN Reason: Referrals: [facility] [NO LOCAL MD] - Follow up as needed I personally performed the services described in the documentation, reviewed and edited the documentation which was dictated to the scribe in my presence, and it accurately records my words and actions.
[2020-03-05] MEDS ORDERED: HYDROCOD/ACETAMIN 7.5-325 MG/15 ML ORAL SOLN UDCUP PO ONE (14:27)
[2020-03-05] MEDS ORDERED: BENZONATATE 100 MG CAPSULE PO ONE (14:27)
[2020-03-05 15:51] VITALS: BP 152/85
== END 2020-03-05 15:55 | disposition home or self-care (01) ==
LOC: ER 11:56
DX: J20.9 Acute bronchitis, unspecified (principal); J05.0 Acute obstructive laryngitis [croup]; I10 Essential (primary) hypertension; J44.9 Chronic obstructive pulmonary disease, unspecified; E11.9 Type 2 diabetes mellitus without complications; Z86.718 Personal history of other venous thrombosis and embolism; Z79.01 Long term (current) use of anticoagulants; Z88.6 Allergy status to analgesic agent; Z88.0 Allergy status to penicillin
CPT/HCPCS: 94640 ×2; 99284; J7512; J3490